=== PATIENT | female | born 1945 | race Caucasian/White ===

== ENCOUNTER 2016-09-07 21:15 | Inpatient (IN) | payer OTHER, BC ==
[~2016-09-07] VITALS: Ht 157.5 cm; Wt 86.2 kg
[~2016-09-07 21:15] MED LIST: CEFP100T PO; METO25TA4 PO; MULT-91 PO; PANT40TA5 PO; PRAV20TA2 PO; WARF2TAB7 PO; WARF5TAB7 PO
--- NOTE | 2016-09-07 22:52 | PHYS DOC ---
Past Medical History Past Medical History: A-Fib, Heart Disease, NH, Stroke Past Surgical History: Appendectomy, Cholecystectomy, Hysterectomy, Tonsillectomy Alcohol Use: None Drug Use: None Adult General Chief Complaint Chief Complaint: NEAR SYNCOPE HPI HPI Patient is a 71 year old female who presents with complaint of a near syncopal episode that took place prior to arrival. Patient states that she was dining at a restaurant with family. The patient suddenly started having lightheadedness and tunnel vision. Patient states that she started to feel like she is going to pass out. The patient was caught by family who prevent the patient from falling. Patient denies any full loss of consciousness. Patient states that the episode lasted for several minutes. Staff at the restaurant called the EMS who brought the patient to the emergency department. Patient states that she has history of A. fib, stroke, and NH. Patient is currently on Coumadin therapy. Patient states that she is having residual substernal chest pressure since the episode and also states that she feels very weak. Patient rates her chest discomfort currently as 3 out of 10. Review of Systems Review of Systems Constitutional: Generalized weakness, Denies fever or chills [] Eyes: Denies change in visual acuity, redness, or eye pain [] HENT: Denies nasal congestion or sore throat [] Respiratory: Denies cough or shortness of breath [] Cardiovascular: Chest pain, near-syncope [] GI: Nausea, denies abdominal pain, vomiting, bloody stools or diarrhea [] : Denies dysuria or hematuria [] Musculoskeletal: Denies back pain or joint pain [] Integument: Denies rash or skin lesions [] Neurologic: Denies headache, focal weakness or sensory changes [] Current Medications Current Medications Current Medications Medications (Trade) Dose Ordered Sig/Jovanni Start Time Stop Time Status Last Admin Dose Admin Ceftriaxone Sodium 50 ml @ 100 mls/hr 1X ONCE 09/08/16 02:00 09/08/16 02:29 DC 09/08/16 02:15 100 MLS/HR Sodium Chloride (Iv Sodium Chloride 0.9% 500ml Bag) 500 ml @ 500 mls/hr 1X ONCE 09/08/16 01:59 09/08/16 02:58 DC 09/08/16 01:30 500 MLS/HR Allergies Allergies Allergies Coded Allergies Type Severity Reaction Last Updated Verified Penicillins Allergy Intermediate 07/02/16 Yes alprazolam Allergy Intermediate 07/02/16 Yes codeine Allergy Intermediate 07/02/16 Yes hydrocodone Allergy Intermediate 07/02/16 Yes meperidine Allergy Intermediate 07/02/16 Yes morphine Allergy Intermediate 07/02/16 Yes shellfish derived Allergy Intermediate 07/02/16 Yes aspirin Adverse Reaction Intermediate 07/02/16 Yes Physical Exam Physical Exam Constitutional: Alert, afebrile, appears in mild discomfort. [] HENT: Normocephalic, atraumatic, bilateral external ears normal, oropharynx moist, no oral exudates, nose normal. [] Eyes: PERRLA, EOMI, conjunctiva normal, no discharge. [] Neck: Normal range of motion, no tenderness, supple, no stridor. [] Cardiovascular:Heart rate regular rhythm, no murmur [] Lungs & Thorax: Bilateral breath sounds clear to auscultation [] Abdomen: Bowel sounds normal, soft, no tenderness, no masses, no pulsatile masses. [] Skin: Warm, dry, no erythema, no rash. [] Back: No tenderness, no CVA tenderness. [] Extremities: No tenderness, no cyanosis, no clubbing, ROM intact, no edema. [] Neurologic: Alert and oriented X 3, normal motor function, normal sensory function, no focal deficits noted. [] Current Patient Data Vital Signs Vital Signs Date Time Temp Pulse Resp B/P Pulse Ox O2 Delivery O2 Flow Rate FiO2 09/08/16 01:58 76 17 161/60 92 Room Air 09/07/16 21:41 97.5 97.5 Lab Values Laboratory Tests Test 09/08/16 00:37 09/08/16 00:45 White Blood Count 10.2x10^3/uL (4.0-11.0) Red Blood Count 4.94x10^6/uL (3.50-5.40) Hemoglobin 14.4g/dL (12.0-15.5) Hematocrit 43.3% (36.0-47.0) Mean Corpuscular Volume 88fL (79-100) Mean Corpuscular Hemoglobin 29pg (25-35) Mean Corpuscular Hemoglobin Concent 33g/dL (31-37) Red Cell Distribution Width 13.7% (11.5-14.5) Platelet Count 186x10^3/uL (140-400) Neutrophils (%) (Auto) 82% (31-73) H Lymphocytes (%) (Auto) 13% (24-48) L Monocytes (%) (Auto) 4% (0-9) Eosinophils (%) (Auto) 1% (0-3) Basophils (%) (Auto) 1% (0-3) Neutrophils # (Auto) 8.4x10^3uL (1.8-7.7) H Lymphocytes # (Auto) 1.3x10^3/uL (1.0-4.8) Monocytes # (Auto) 0.4x10^3/uL (0.0-1.1) Eosinophils # (Auto) 0.1x10^3/uL (0.0-0.7) Basophils # (Auto) 0.1x10^3/uL (0.0-0.2) Prothrombin Time 21.4SEC (11.7-14.0) H Prothrombin Time INR 2.0 (0.8-1.1) H PTT 37SEC (24-38) Sodium Level 148mmol/L (136-145) H Potassium Level 4.5mmol/L (3.5-5.1) Chloride Level 110mmol/L (98-107) H Carbon Dioxide Level 31mmol/L (21-32) Anion Gap 7 (6-14) Blood Urea Nitrogen 23mg/dL (7-20) H Creatinine 1.0mg/dL (0.6-1.0) Estimated GFR (Cockcroft-Gault) 54.5 BUN/Creatinine Ratio 23 (6-20) H Glucose Level 143mg/dL (70-99) H Calcium Level 8.9mg/dL (8.5-10.1) Magnesium Level 1.9mg/dL (1.8-2.4) Total Bilirubin 0.9mg/dL (0.2-1.0) Aspartate Amino Transferase (AST) 16U/L (15-37) Alanine Aminotransferase (ALT) 24U/L (14-59) Alkaline Phosphatase 74U/L (46-116) Creatine Kinase 32U/L (26-192) Creatine Kinase MB (Mass) < 0.5ng/mL (0.0-3.6) Creatine Kinase MB Relative Index 1.6% (0-4) Troponin I Quantitative < 0.017ng/mL (0.000-0.055) Total Protein 6.0g/dL (6.4-8.2) L Albumin 3.3g/dL (3.4-5.0) L Albumin/Globulin Ratio 1.2 (1.0-1.7) Urine Collection Type Unknown Urine Color Yellow Urine Clarity Clear Urine pH 5.5 Urine Specific [place] 1.020 Urine Protein Negativemg/dL (NEG-TRACE) Urine Glucose (UA) Negativemg/dL (NEG) Urine Ketones (Stick) Negativemg/dL (NEG) Urine Blood Negative (NEG) Urine Nitrite Negative (NEG) Urine Bilirubin Negative (NEG) Urine Urobilinogen Dipstick 0.2mg/dL (0.2 mg/dL) Urine Leukocyte Esterase Large (NEG) Urine RBC Occ/HPF (0-2) Urine WBC Tntc/HPF (0-4) Urine Squamous Epithelial Cells Mod/LPF Urine Bacteria Moderate/HPF (0-FEW) Urine Hyaline Casts Moderate/HPF Urine Mucus Mod/LPF Laboratory Tests 09/08/16 00:37 Laboratory Tests 09/08/16 00:37 EKG EKG Interpreted by me: Heart rate 75, sinus rhythm, leftward axis, no acute ST/T- wave abnormalities present [] Radiology/Procedures Radiology/Procedures One view AP chest x-ray interpreted by me: No infiltrate, no effusion, normal cardiac silhouette [] Course & Med Decision Making Course & Med Decision Making Pertinent Labs and Imaging studies reviewed. (See chart for details) The patient was started on IV fluids in the emergency department. Patient was not given aspirin for chest pain due to aspirin allergy. After fluid treatment, the patient continued to complain of intermittent episodes of substernal chest pressure. Patient was found to have urinary tract infection and started on IV Rocephin. Given the patient's syncope, history of atrial fibrillation, and presence of continued chest pain, I feel it is appropriate that this patient be admitted for further monitoring. I spoke with Dr. Lemus who accepted care patient in hospital. He asked that repeat troponins be ordered but stated that he would see the patient before consulting cardiology. The patient will be continued on IV Rocephin for treatment of urinary tract infection. Dragon Disclaimer Dragon Disclaimer This electronic medical record was generated, in whole or in part, using a voice recognition dictation system. Departure Departure Impression: Primary Impression: Syncope Additional Impressions: Chest pain Urinary tract infection History of atrial fibrillation Warfarin anticoagulation Disposition: 09 ADMITTED INPATIENT Admitting Physician: Vivian Lemus Condition: GUARDED Referrals: VIVIAN LEMUS MD (PCP) Problem Qualifiers Primary Impression: Syncope Syncope type: unspecified Qualified Code: R55 - Syncope and collapse Additional Impressions: Chest pain Chest pain type: unspecified Qualified Code: R07.9 - Chest pain, unspecified Urinary tract infection Urinary tract infection type: site unspecified Hematuria presence: without hematuria Qualified Code: N39.0 - Urinary tract infection, site not specified VINNIE HENDRICKSON MD Sep 07, 2016 22:52
[2016-09-07] MEDS ORDERED: IV NORMAL SALINE 500ML BAG 500 ML IV SCH (23:45)
[2016-09-08] VITALS (8 sets, daily range): BP systolic 121–188; BP diastolic 60–92
[2016-09-08 00:45] LABS: BASO # 0.1 x10^3/uL (0.0-0.2); BASO % 1 % (0-3); EOS % 1 % (0-3); HEMATOCRIT 43.3 % (36.0-47.0); HEMOGLOBIN 14.4 g/dL (12.0-15.5); LYMPH # 1.3 x10^3/uL (1.0-4.8); LYMPH % 13 % (24-48); MEAN CORPUSCULAR HEMOGLOBIN 29 pg (25-35); MEAN CORPUSCULAR HGB CONC 33 g/dL (31-37); MEAN CORPUSCULAR VOLUME 88 fL (79-100); MONO % 4 % (0-9); NEUT % 82 % (31-73); PLATELET COUNT 186 x10^3/uL (140-400); RED BLOOD COUNT 4.94 x10^6/uL (3.50-5.40); RED CELL DISTRIBUTION WIDTH 13.7 % (11.5-14.5); WHITE BLOOD COUNT 10.2 x10^3/uL (4.0-11.0)
[2016-09-08 00:55] LABS: PROTHROMBIN TIME PATIENT 21.4 SEC (11.7-14.0)
[2016-09-08 00:58] LABS: CALCIUM 8.9 mg/dL (8.5-10.1); GFR 54.5; POTASSIUM 4.5 mmol/L (3.5-5.1)
[2016-09-08 01:03] LABS: ALBUMIN 3.3 g/dL (3.4-5.0); ALBUMIN/GLOBULIN RATIO 1.2 (1.0-1.7); MAGNESIUM 1.9 mg/dL (1.8-2.4); TOTAL BILIRUBIN 0.9 mg/dL (0.2-1.0)
[2016-09-08 01:07] LABS: BILIRUBIN,URINE NEGATIVE (NEG); GLUCOSE,URINE NEGATIVE (NEG); NITRITE,URINE NEGATIVE (NEG); PH,URINE 5.5; PROTEIN,URINE NEGATIVE (NEG-TRACE); UROBILINOGEN,URINE 0.2 mg/dL (0.2 mg/dL)
[2016-09-08 01:11] LABS: CKMB INDEX 1.6 % (0-4); CKMB MASS < 0.5 ng/mL (0.0-3.6); CREATINE KINASE 32 U/L (26-192)
[2016-09-08 01:19] LABS: BACTERIA,URINE MODERATE /HPF (0-FEW); RBC,URINE OCC /HPF (0-2); WBC,URINE TNTC /HPF (0-4)
[2016-09-08 01:20] LABS: SQUAMOUS EPITHELIAL CELL,UR MOD /LPF
[2016-09-08] MEDS ORDERED: IV NORMAL SALINE 500ML BAG 500 ML IV ONE (01:59)
[2016-09-08] MEDS ORDERED: CEFTRIAXONE 1GM IVPB FOR OMNI 50 ML IV ONE (02:00)
[2016-09-08] MEDS ORDERED: IV NORMAL SALINE 1000ML BAG 1,000 ML IV SCH (02:34)
[2016-09-08] MEDS ORDERED: ONDANSETRON PF 4 MG/2 ML VIAL. IV PRN (02:45)
[2016-09-08] MEDS ORDERED: ACETAMINOPHEN 325 MG TABLET. PO PRN (02:45)
[2016-09-08] MEDS: FENTANYL PF 100 MCG/2 ML VIAL. IV PRN ×5 (04:33→20:11)
--- NOTE | 2016-09-08 05:43 | ACF ---
Admit Criteria Forms Admit Criteria Forms Admit Criteria Forms SYNCOPE Clinical Indications for Admission to Inpatient Care ( Place 'X' for any and all applicable criteria): Admission is indicated for syncope and ANY ONE of the following (1)(2)(3)(4)(5) (6)(7) : [X]I. Inpatient admission required rather than observation care (Also use Syncope: Observation Care Criteria as appropriate) because of ANY ONE of the following: [ ]a) Hemodynamic instability that is severe or persistent [ ]b) Cardiac arrhythmias of immediate concern identified or strongly suspected (eg, needs electrophysiologic study) [ ]c) Acute coronary syndrome identified (Also use Myocardial Infarction or Angina Criteria form ) [ ]d) Structural cardiac disorder (eg, aortic stenosis) suspected as cause that requires immediate correction [ ]e) Respiratory symptoms (eg, dyspnea, tachypnea) that are severe or persistent [ ]f) Neurologic signs or symptoms that are severe or persistent ( eg, stroke, seizures, altered mental status) [ ]g) Severe electrolyte abnormalities requiring inpatient care [ ]h) Supplemental oxygen or respiratory treatment for over 24 hrs that are performable only in acute inpatient setting [ ]i) IV fluid to replace significant ongoing (eg, for over 24 hrs ) losses (>3 L/m2 per day) [ ]j) Continuous intravenous infusion of anticoagulation, platelet inhibitor, vasoactive, or antiarrhythmic medication(15)(16) [ ]k) Pulmonary artery catheter monitoring [ ]l) Temporary pacemaker placement(17) [ ]m) Emergent cardioversion(18) [X]n) Other conditions, treatment or monitoring requiring inpatient admission [ ]II. Suspicion of imminently dangerous cause (eg, rare causes like pericardial tamponade, pulmonary embolism) [ ]III. Syncope causing severe injury requiring hospitalization Extended stay beyond goal length of stay may be needed for(28) [ ]a) Dangerous arrhythmia(15)(23)(27)(29) [ ]b) Myocardial ischemia [ ]c) Seizure disorder [ ]d) Syncope-related injuries The original [facility] content created by [facility] [employer] has been revised. The portions of the content which have been revised are identified through the use of italic text or in bold, and [facility] [employer] has neither reviewed nor approved the modified material. All other unmodified content is copyright [facility] [employer]. Please see references footnoted in the original [facility] edition 2016 PRUDENCE DENNIS Sep 08, 2016 05:43
--- NOTE | 2016-09-08 06:46 | EKG ---
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
--- NOTE | 2016-09-08 07:46 | RAD ---
Portable chest, 09/07/2016: History: Chest pain Comparison is made to a study from 12/09/2005. The patient is rotated to the left. The heart size and pulmonary vascularity are normal. No pulmonary infiltrates are seen. There is no evidence of pleural fluid. IMPRESSION: No acute cardiopulmonary abnormality is detected.
[2016-09-08] MEDS ORDERED: ACETAMINOPHEN 500 MG TABLET PO PRN (14:45)
[2016-09-08] MEDS ORDERED: DIAZEPAM 5 MG TABLET PO PRN (14:45)
--- NOTE | 2016-09-08 14:45 | PDOC ---
Provider Note Provider Note See admission H&P dictation #[id number] Impression: 1. Near syncopal episode: 2. Abnormal UA consistent with UTI: 3. History of atrial fibrillation: 4. Reported history of patent foramen ovale: 5. Abnormal glucose: 6. Anxiety: 7. Low back pain: VIVIAN LEMUS MD Sep 08, 2016 14:45
--- NOTE | 2016-09-08 15:12 | PDOC2 ---
CARDIAC CONSULT DATE OF CONSULT Date of Consult DATE: 09/08/16 TIME: 14:46 REASON FOR CONSULT Reason for Consult: afib, h/o pfo, syncope REFERRING PHYSICIAN Referring Physician: Mesfin SOURCE Source: Chart review, Patient HISTORY OF PRESENT ILLNESS HISTORY OF PRESENT ILLNESS This is a pleasant but very anxious 71 yo female admitted for complains of lightheadedness. Reports that she was in a crowded [lace with her family dining in a restaurant. She was done eating when finally started feeling weak, had tunnel vision, diaphoretic and lightheaded. There was no symptoms of palpitations, SOA, nor nausea. The duration of her symptoms was not clear and told me it lasted several minutes. She did have chest tightness and this was described as her rib cage squeezing together then got isolated under her left breast. There was no associated ROSE, visual or auditory disturbances, dysarthria , nor unilateral weakness. There has been no changes in her activity tolerance. She did overheard the EMS switch technician saying 90/60 on her blood pressure. Denies being claustrophobic but she is does have hx of PAFIB and possible PFO in the past. She has hx of CVA and currently on coumadin therapy. She is quite anxious and seems to recirculate her details of symptoms and past events but could not pinpoint the timeline of it. She verbalized that she had an AK in the past but based on her cardiac testing no notable CAD was noted. Denies any recent long distance travel, no prior VTE. No recent passing out, falls or any injury. She does have UTI and based on her this is recurrent explaining about bladder dysfunction which may need bladder suspension but she would consider any surgery that would make her stop taking her coumadin. Her oncology rep specialist is from [facility] Dr. Bosch. PAST MEDICAL HISTORY Cardiovascular: AFIB (paroxysmal), HTN, Hyperlipidemia, Other (hx of PFO; mild carotid artery disease) Pulmonary: Pneumonia CENTRAL NERVOUS SYSTEM: CVA (no residuals) GI: GERD Heme/Onc: No pertinent hx, Other (left retroperitoneal hematoma June 2016 anterior to the left psoas muscle with prior anticoagulation (possibly from lovenox shots)) Hepatobiliary: No pertinent hx Psych: Anxiety Musculoskeletal: Osteoarthritis Rheumatologic: No pertinent hx Infectious disease: No pertinent hx ENT: No pertinent hx Renal/: UTI (Ecoli rsitatn to levaquin) Endocrine: Hypothyroidism (?) Dermatology: No pertinent hx PAST SURGICAL HISTORY Past Surgical History: Appendectomy, Arthroscopy (RTC repair), Cholecystectomy , Hernia Repair ( with mesh x3 surgeries), Tonsillectomy, Hysterectomy (partial) , Other (hip and knee surgery; thyroid surgery) FAMILY HISTORY Family History noncontributory SOCIAL HISTORY Smoke: No ALCOHOL: none Drugs: None Lives: Alone CURRENT MEDICATIONS CURRENT MEDICATIONS Current Medications Medications (Trade) Dose Ordered Sig/Jovanni Route PRN Reason Start Time Stop Time Status Last Admin Dose Admin Ceftriaxone Sodium 50 ml @ 100 mls/hr 1X ONCE IV 09/08/16 02:00 09/08/16 02:29 DC 09/08/16 02:15 Sodium Chloride (Iv Sodium Chloride 0.9% 500ml Bag) 500 ml @ 500 mls/hr 1X ONCE IV 09/08/16 01:59 09/08/16 02:58 DC 09/08/16 01:30 Fentanyl Citrate 50 mcg 50 mcg PRN Q2HR PRN IV SEVERE PAIN 09/08/16 02:45 09/09/16 02:44 09/08/16 13:09 Sodium Chloride (Iv Sodium Chloride 0.9% 1000ml Bag) 1,000 ml @ 100 mls/hr Q10H IV 09/08/16 02:34 09/09/16 02:33 09/08/16 04:26 ALLERGIES ALLERGIES: Coded Allergies: Penicillins (Verified Allergy, Intermediate, 07/02/16) alprazolam (Verified Allergy, Intermediate, 07/02/16) codeine (Verified Allergy, Intermediate, 07/02/16) hydrocodone (Verified Allergy, Intermediate, 07/02/16) meperidine (Verified Allergy, Intermediate, 07/02/16) morphine (Verified Allergy, Intermediate, 07/02/16) shellfish derived (Verified Allergy, Intermediate, 07/02/16) aspirin (Verified Adverse Reaction, Intermediate, 07/02/16) ROS Review of System 14 point ROS evaluated with pertinent positives noted per HPI PHYSICAL EXAM General: Alert, Oriented X3, Cooperative, No acute distress HEENT: Atraumatic, Mucous membr. moist/pink Lungs: Clear to auscultation, Normal air movement Heart: Regular rate, Normal S1, Normal S2, No murmurs Abdomen: Soft, No tenderness, Other (obese) Skin: No breakdown, No significant lesion Neuro: Normal speech, Sensation intact Psych/Mental Status: Other (anxious) MUSCULOSKELETAL: Osteoarthritic changes both hands VITALS VITALS Vital Signs Date Time Temp Pulse Resp B/P Pulse Ox O2 Delivery O2 Flow Rate FiO2 09/08/16 13:09 18 97 Room Air 09/08/16 11:00 97.9 73 153/64 97.9 LABS Lab: Laboratory Tests Test 09/08/16 00:37 09/08/16 00:45 09/08/16 08:50 White Blood Count 10.2x10^3/uL (4.0-11.0) Red Blood Count 4.94x10^6/uL (3.50-5.40) Hemoglobin 14.4g/dL (12.0-15.5) Hematocrit 43.3% (36.0-47.0) Mean Corpuscular Volume 88fL (79-100) Mean Corpuscular Hemoglobin 29pg (25-35) Mean Corpuscular Hemoglobin Concent 33g/dL (31-37) Red Cell Distribution Width 13.7% (11.5-14.5) Platelet Count 186x10^3/uL (140-400) Neutrophils (%) (Auto) 82% (31-73) Lymphocytes (%) (Auto) 13% (24-48) Monocytes (%) (Auto) 4% (0-9) Eosinophils (%) (Auto) 1% (0-3) Basophils (%) (Auto) 1% (0-3) Neutrophils # (Auto) 8.4x10^3uL (1.8-7.7) Lymphocytes # (Auto) 1.3x10^3/uL (1.0-4.8) Monocytes # (Auto) 0.4x10^3/uL (0.0-1.1) Eosinophils # (Auto) 0.1x10^3/uL (0.0-0.7) Basophils # (Auto) 0.1x10^3/uL (0.0-0.2) Prothrombin Time 21.4SEC (11.7-14.0) Prothromb Time International Ratio 2.0 (0.8-1.1) Activated Partial Thromboplast Time 37SEC (24-38) Sodium Level 148mmol/L (136-145) Potassium Level 4.5mmol/L (3.5-5.1) Chloride Level 110mmol/L (98-107) Carbon Dioxide Level 31mmol/L (21-32) Anion Gap 7 (6-14) Blood Urea Nitrogen 23mg/dL (7-20) Creatinine 1.0mg/dL (0.6-1.0) Estimated GFR (Cockcroft-Gault) 54.5 BUN/Creatinine Ratio 23 (6-20) Glucose Level 143mg/dL (70-99) Calcium Level 8.9mg/dL (8.5-10.1) Magnesium Level 1.9mg/dL (1.8-2.4) Total Bilirubin 0.9mg/dL (0.2-1.0) Aspartate Amino Transf (AST/SGOT) 16U/L (15-37) Alanine Aminotransferase (ALT/SGPT) 24U/L (14-59) Alkaline Phosphatase 74U/L (46-116) Creatine Kinase 32U/L (26-192) Creatine Kinase MB (Mass) < 0.5ng/mL (0.0-3.6) Creatine Kinase MB Relative Index 1.6% (0-4) Troponin I Quantitative < 0.017ng/mL (0.000-0.055) < 0.017ng/mL (0.000-0.055) Total Protein 6.0g/dL (6.4-8.2) Albumin 3.3g/dL (3.4-5.0) Albumin/Globulin Ratio 1.2 (1.0-1.7) Urine Collection Type Unknown Urine Color Yellow Urine Clarity Clear Urine pH 5.5 Urine Specific [place] 1.020 Urine Protein Negativemg/dL (NEG-TRACE) Urine Glucose (UA) Negativemg/dL (NEG) Urine Ketones (Stick) Negativemg/dL (NEG) Urine Blood Negative (NEG) Urine Nitrite Negative (NEG) Urine Bilirubin Negative (NEG) Urine Urobilinogen Dipstick 0.2mg/dL (0.2 mg/dL) Urine Leukocyte Esterase Large (NEG) Urine RBC Occ/HPF (0-2) Urine WBC Tntc/HPF (0-4) Urine Squamous Epithelial Cells Mod/LPF Urine Bacteria Moderate/HPF (0-FEW) Urine Hyaline Casts Moderate/HPF Urine Mucus Mod/LPF ECHOCARDIOGRAM ECHOCARDIOGRAM <Conclusion> The left ventricle is normal size. The left ventricular systolic function is normal and the ejection fraction is within normal range. The Ejection Fraction is 55-60%. There is mild concentric left ventricular hypertrophy. There is no significant aortic valvular stenosis. Doppler and Color Flow revealed no significant aortic regurgitation. Doppler and Color Flow revealed trace mitral valve regurgitation. Doppler and Color Flow revealed trace tricuspid regurgitation. The PA pressure was estimated at 33 mmHg. The left atrium size is normal. The right atrium size is normal. The interatrial septum is intact with no evidence for an atrial septal defect or patent foramen ovale as noted on 2-D or Doppler imaging. DATE: 07/01/16 1211 STRESS TEST STRESS TEST Stress MPI in early 2015 that was unremarkable. Calcium score of 0 within the last 5 years. HEART CATH HEART CATH Normal [facility] 2007 ASSESSMENT/PLAN ASSESSMENT/PLAN 1. Atypical Chest pain: Troponin series normal, EKG SR with no acute changes. Suspect GI. Recent MPI early 2015 unremarkable per chart review 2. Presyncope: suspect vasovagal, likely deglutition induced with underlying anxiety/dehydration 3. Prerenal azotemia 4. PAFIB: currently on SR, no ectopies 5. CVA with hx of small PFO: no residual deficits with past CVA. Documented PFO/ ASD on 04/30/2011. On 06/2016, Recent TTE noted without any ASD nor PFO. Spontaneous closure is likely 6. Significant Anxiety 7. Recurrent UTI 8. Hx of retroperitoneal bleed: anterior to psoas muscle, likely from lovenox treatment 9. Known GERD/hiatal hernia/gastritis 10. HTN: controlled 11. 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 Continue with coumadin therapy and metoprolol 2. IVF maintenance 3. Will check for orthostasis 4. TSH, lipid panel. 5. Per chart review she did have an event monitor placed on 10/2015 by her oncology rep specialist due to dizziness and did not show any correlation to arrhythmias 6. No recent CVA, if PFO/ASD is still a concern, NICHOLAS would be a definitive testing. Problems: EDNA PAZ APRN Sep 08, 2016 15:12
[2016-09-08] MEDS: IV 1/2 NORMAL SALINE 1,000 ML IV SCH (16:46)
[2016-09-08] MEDS: WARFARIN 2 MG TABLET. PO SCH (16:47)
[2016-09-08] MEDS: WARFARIN 5 MG TABLET. PO SCH (16:47)
[2016-09-08] MEDS: ATORVASTATIN CALCIUM 10 MG TABLET. PO SCH (20:08)
[2016-09-08] MEDS: METOPROLOL TART IMMED RELEASE 25 MG TABLET PO SCH (20:09)
[2016-09-08] MEDS: CEFTRIAXONE SODIUM 1 GM in IV NORMAL SALINE 50ML 50 ML IV SCH (22:49)
[2016-09-09] MEDS: FENTANYL PF 100 MCG/2 ML VIAL. IV PRN (00:28)
[2016-09-09 03:57] VITALS: BP 152/70
[2016-09-09] MEDS: TRAMADOL 50 MG TABLET. PO PRN ×3 (04:06→21:40)
[2016-09-09 04:10] LABS: BASO % 1 % (0-3); EOS % 2 % (0-3); HEMATOCRIT 41.5 % (36.0-47.0); HEMOGLOBIN 13.9 g/dL (12.0-15.5); LYMPH # 1.7 x10^3/uL (1.0-4.8); LYMPH % 26 % (24-48); MEAN CORPUSCULAR HEMOGLOBIN 29 pg (25-35); MEAN CORPUSCULAR HGB CONC 34 g/dL (31-37); MEAN CORPUSCULAR VOLUME 88 fL (79-100); MONO % 7 % (0-9); NEUT % 65 % (31-73); PLATELET COUNT 174 x10^3/uL (140-400); RED BLOOD COUNT 4.72 x10^6/uL (3.50-5.40); RED CELL DISTRIBUTION WIDTH 13.6 % (11.5-14.5); WHITE BLOOD COUNT 6.5 x10^3/uL (4.0-11.0)
[2016-09-09 04:17] LABS: INR 2.1 (0.8-1.1)
[2016-09-09 04:28] LABS: CALCIUM 8.4 mg/dL (8.5-10.1); CREATININE 1.2 mg/dL (0.6-1.0); GFR 44.2; POTASSIUM 4.3 mmol/L (3.5-5.1)
[2016-09-09 04:35] LABS: CHOLESTEROL/HDL RATIO 4.5
[2016-09-09] MEDS: IV 1/2 NORMAL SALINE 1,000 ML IV SCH (05:35)
[2016-09-09 07:19] VITALS: BP 150/97
--- NOTE | 2016-09-09 08:37 | PDOC ---
SUBJECTIVE Subjective Feeling somewhat better. She tolerated the tramadol without any difficulty so far and her back pain feels better. She was able to get a little bit asleep. She is still somewhat anxious. Denies any chest pain or shortness of breath. No near syncopal episodes. Tolerating her diet okay. OBJECTIVE Vital Signs Vital Signs Date Time Temp Pulse Resp B/P Pulse Ox O2 Delivery O2 Flow Rate FiO2 09/09/16 07:19 66 22 150/97 93 Room Air 09/09/16 05:06 93 Room Air 09/09/16 04:06 18 09/09/16 03:57 97.9 74 16 152/70 93 Room Air 97.9 09/09/16 00:58 95 Room Air 09/09/16 00:28 18 95 Room Air 09/08/16 23:53 97.9 68 16 142/74 95 Room Air 97.9 09/08/16 20:41 18 09/08/16 20:11 18 97 Room Air 09/08/16 20:09 68 148/68 09/08/16 20:00 Room Air 09/08/16 19:56 98.1 68 20 148/68 97 Room Air 98.1 09/08/16 16:47 19 97 Room Air 09/08/16 15:02 188/92 09/08/16 15:01 182/88 09/08/16 15:00 97.8 70 18 174/70 96 Room Air 97.8 09/08/16 13:09 18 97 Room Air 09/08/16 11:00 97.9 73 18 153/64 97 Room Air 97.9 I & O Intake and Output 09/09/16 07:00 Intake Total 1660 ml Balance 1660 ml Intake Oral 1660 ml # Voids 4 PHYSICAL EXAM Physical Exam General: No acute distress. Laying in bed. Mental status: Alert and oriented. Less anxious. Chest: Air movement: good. Auscultation: clear throughout Cardiovascular: Rate: normal. Rhythm: regular. Murmur: none. Abdomen: Bowel sounds: Occasional. Soft. Nondistended. Tenderness: nontender to palpation. No guarding. No rebound. Extremities: No lower extremity edema. ASSESSMENT/PLAN Assessment/Plan 1. Near syncopal episode: Probably a combination of dehydration and urinary tract infection. Could be arrhythmia with a history of atrial fibrillation but there's been no recurrent episodes. 2. Abnormal UA consistent with UTI: Continue empiric antibiotics. Await urine culture results. 3. History of atrial fibrillation: Stable on current medications. 4. Reported history of patent foramen ovale: Per cardiology. 5. Abnormal glucose: Continue to monitor as needed. 6. Anxiety: Add low-dose of Valium twice a day when necessary which she has used in the past. 7. Low back pain: Most likely degenerative changes but also possibly due to a UTI. She is tolerating tramadol so far. Continue with since she does have a variety of allergies and intolerances. 8. Disposition: She will hopefully be able to be discharged home tomorrow. Since she has multiple antibiotic allergies/intolerances and recurrent urinary tract infections, high would like to have her urine culture results back before she goes home so we can make sure she is on the correct antibiotic. Problems: COMMENT Lab Laboratory Tests Test 09/08/16 08:50 09/08/16 15:00 09/09/16 03:45 Troponin I Quantitative < 0.017ng/mL (0.000-0.055) < 0.017ng/mL (0.000-0.055) Thyroid Stimulating Hormone (TSH) 2.346uIU/mL (0.358-3.74) White Blood Count 6.5x10^3/uL (4.0-11.0) Red Blood Count 4.72x10^6/uL (3.50-5.40) Hemoglobin 13.9g/dL (12.0-15.5) Hematocrit 41.5% (36.0-47.0) Mean Corpuscular Volume 88fL (79-100) Mean Corpuscular Hemoglobin 29pg (25-35) Mean Corpuscular Hemoglobin Concent 34g/dL (31-37) Red Cell Distribution Width 13.6% (11.5-14.5) Platelet Count 174x10^3/uL (140-400) Neutrophils (%) (Auto) 65% (31-73) Lymphocytes (%) (Auto) 26% (24-48) Monocytes (%) (Auto) 7% (0-9) Eosinophils (%) (Auto) 2% (0-3) Basophils (%) (Auto) 1% (0-3) Neutrophils # (Auto) 4.2x10^3uL (1.8-7.7) Lymphocytes # (Auto) 1.7x10^3/uL (1.0-4.8) Monocytes # (Auto) 0.4x10^3/uL (0.0-1.1) Eosinophils # (Auto) 0.2x10^3/uL (0.0-0.7) Basophils # (Auto) 0.0x10^3/uL (0.0-0.2) Prothrombin Time 22.0SEC (11.7-14.0) Prothromb Time International Ratio 2.1 (0.8-1.1) Sodium Level 145mmol/L (136-145) Potassium Level 4.3mmol/L (3.5-5.1) Chloride Level 110mmol/L (98-107) Carbon Dioxide Level 27mmol/L (21-32) Anion Gap 8 (6-14) Blood Urea Nitrogen 21mg/dL (7-20) Creatinine 1.2mg/dL (0.6-1.0) Estimated GFR (Cockcroft-Gault) 44.2 Glucose Level 109mg/dL (70-99) Calcium Level 8.4mg/dL (8.5-10.1) Triglycerides Level 156mg/dL (0-150) Cholesterol Level 206mg/dL (0-200) LDL Cholesterol, Calculated 129mg/dL (0-100) VLDL Cholesterol, Calculated 31mg/dL (0-40) HDL Cholesterol 46mg/dL (40-60) Cholesterol/HDL Ratio 4.5 VIVIAN LEMUS MD Sep 09, 2016 08:37
[2016-09-09] MEDS ORDERED: DIAZEPAM 2 MG TABLET PO PRN (08:45)
[2016-09-09] MEDS: PANTOPRAZOLE 40 MG TABLET. PO SCH (09:41)
[2016-09-09] MEDS: METOPROLOL TART IMMED RELEASE 25 MG TABLET PO SCH ×2 (09:41→21:41)
--- NOTE | 2016-09-09 10:07 | PDOC ---
CARDIO Progress Notes Date and Time Date of Service 09/09/2016 Time of Evaluation 1005 Subjective Subjective: No Chest Pain, No shortness of breath, No Palpitations, No Dizziness Vitals Vitals Vital Signs Date Time Temp Pulse Resp B/P Pulse Ox O2 Delivery O2 Flow Rate FiO2 09/09/16 09:41 66 150/97 09/09/16 07:19 22 93 Room Air 09/09/16 03:57 97.9 97.9 Weight Weight [ ] Input and Output Intake and Output Intake and Output 09/09/16 07:00 Intake Total 1660 ml Balance 1660 ml Intake Oral 1660 ml # Voids 4 Laboratory Labs Laboratory Tests Test 09/08/16 15:00 09/09/16 03:45 Troponin I Quantitative < 0.017ng/mL (0.000-0.055) Thyroid Stimulating Hormone (TSH) 2.346uIU/mL (0.358-3.74) White Blood Count 6.5x10^3/uL (4.0-11.0) Red Blood Count 4.72x10^6/uL (3.50-5.40) Hemoglobin 13.9g/dL (12.0-15.5) Hematocrit 41.5% (36.0-47.0) Mean Corpuscular Volume 88fL (79-100) Mean Corpuscular Hemoglobin 29pg (25-35) Mean Corpuscular Hemoglobin Concent 34g/dL (31-37) Red Cell Distribution Width 13.6% (11.5-14.5) Platelet Count 174x10^3/uL (140-400) Neutrophils (%) (Auto) 65% (31-73) Lymphocytes (%) (Auto) 26% (24-48) Monocytes (%) (Auto) 7% (0-9) Eosinophils (%) (Auto) 2% (0-3) Basophils (%) (Auto) 1% (0-3) Neutrophils # (Auto) 4.2x10^3uL (1.8-7.7) Lymphocytes # (Auto) 1.7x10^3/uL (1.0-4.8) Monocytes # (Auto) 0.4x10^3/uL (0.0-1.1) Eosinophils # (Auto) 0.2x10^3/uL (0.0-0.7) Basophils # (Auto) 0.0x10^3/uL (0.0-0.2) Prothrombin Time 22.0SEC (11.7-14.0) Prothromb Time International Ratio 2.1 (0.8-1.1) Sodium Level 145mmol/L (136-145) Potassium Level 4.3mmol/L (3.5-5.1) Chloride Level 110mmol/L (98-107) Carbon Dioxide Level 27mmol/L (21-32) Anion Gap 8 (6-14) Blood Urea Nitrogen 21mg/dL (7-20) Creatinine 1.2mg/dL (0.6-1.0) Estimated GFR (Cockcroft-Gault) 44.2 Glucose Level 109mg/dL (70-99) Calcium Level 8.4mg/dL (8.5-10.1) Triglycerides Level 156mg/dL (0-150) Cholesterol Level 206mg/dL (0-200) LDL Cholesterol, Calculated 129mg/dL (0-100) VLDL Cholesterol, Calculated 31mg/dL (0-40) HDL Cholesterol 46mg/dL (40-60) Cholesterol/HDL Ratio 4.5 Physical Exam HEENT: Neck Supple W Full Motion Chest: Symmetric LUNGS: Clear to Auscultation Heart: S1S2, RRR Abdomen: Soft N/T Extremities: Negative Jenni's Sign (truncal obesity), No Edema Neurology: alert, oriented, follow commands Assessment Assessment 1. Atypical Chest pain no recurrence recent MPI without significant findings 2. Presyncope no dysrhythmias on tele TSH normal no significant valvular disease on recent echo no recurrence suspect vasovagal - recommend f/u with usual office employee and consider event monitor 3. PAFIB remains SR; no afib on tele Agreeable with discharge; f/u with usual office employee in the next 7 - 10 days; pt has been advised to inform that practice of her hospital stay here. RAFFI CHAVEZ APRN Sep 09, 2016 10:07
[2016-09-09 11:00] VITALS: BP 158/72
[2016-09-09 15:00] VITALS: BP 156/81
[2016-09-09] MEDS: WARFARIN 2 MG TABLET. PO SCH (17:16)
[2016-09-09] MEDS: WARFARIN 5 MG TABLET. PO SCH (17:17)
[2016-09-09 20:30] VITALS: BP 162/72
[2016-09-09] MEDS: ATORVASTATIN CALCIUM 10 MG TABLET. PO SCH (21:41)
[2016-09-09] MEDS: CEFTRIAXONE SODIUM 1 GM in IV NORMAL SALINE 50ML 50 ML IV SCH (21:42)
[2016-09-09 23:30] VITALS: BP 158/68
[2016-09-10] MEDS: TRAMADOL 50 MG TABLET. PO PRN ×2 (04:53→11:41)
[2016-09-10 04:58] VITALS: BP 145/58
[2016-09-10 07:00] VITALS: BP 146/67
--- NOTE | 2016-09-10 07:56 | PDOC ---
SUBJECTIVE Subjective Feeling better. Ambulated yesterday. Tolerating her diet without any problems. No diarrhea. Back pain is improved with tramadol. No palpitations. Anxiety is doing a little better. She does have some itching on her chest in the area of her telemetry pads. OBJECTIVE Vital Signs Vital Signs Date Time Temp Pulse Resp B/P Pulse Ox O2 Delivery O2 Flow Rate FiO2 09/10/16 05:53 18 94 Room Air 09/10/16 04:58 97.7 60 19 145/58 94 Room Air 97.7 09/10/16 04:53 18 97 Room Air 09/10/16 03:47 Room Air 09/09/16 23:30 97.5 66 18 158/68 97 Room Air 97.5 09/09/16 21:41 70 162/72 09/09/16 21:40 18 09/09/16 20:30 97.5 70 18 162/72 94 Room Air 97.5 09/09/16 20:00 Room Air 09/09/16 15:00 98.9 63 20 156/81 96 Room Air 98.9 09/09/16 13:57 Room Air 09/09/16 11:00 97.7 69 20 158/72 95 Room Air 97.7 09/09/16 09:41 66 150/97 09/09/16 08:15 Room Air I & O Intake and Output 09/10/16 07:00 Intake Total 1180 ml Balance 1180 ml Intake Oral 1180 ml # Voids 6 PHYSICAL EXAM Physical Exam General: No acute distress. Laying in bed. Mental status: Alert and oriented. Less anxious. Chest: Air movement: good. Auscultation: clear throughout. There are areas of erythema extending for a centimeter or 2 around the telemetry pads. Cardiovascular: Rate: normal. Rhythm: regular. Murmur: none. Abdomen: Bowel sounds: normal. Soft. Nondistended. Tenderness: nontender to palpation. No guarding. No rebound. Extremities: No lower extremity edema. ASSESSMENT/PLAN Assessment/Plan 1. Near syncopal episode: Probably a combination of dehydration and urinary tract infection. Could be arrhythmia with a history of atrial fibrillation but there's been no recurrent episodes. 2. Abnormal UA consistent with UTI: Continue empiric antibiotics. Hopefully urine culture results will be back today. Discussed with patient we'll change her to oral medication today with discharge. We may need to do empiric antibiotics if we don't have the culture results back today and she'll follow- up tomorrow. 3. History of atrial fibrillation: Stable on current medications. 4. Reported history of patent foramen ovale: Per cardiology. No workup needed at present. 5. Abnormal glucose: Continue to monitor as needed. 6. Anxiety: Continue low-dose of Valium twice a day when necessary which she has used in the past. 7. Low back pain: Much improved with tramadol. 8. Disposition: Plan for discharge later today when we hopefully have the results of the urine culture back. Otherwise transition to empiric oral antibiotic and we'll have her follow-up as an outpatient tomorrow to determine proper antibiotic choice. Problems: VIVIAN LEMUS MD Sep 10, 2016 07:56
[2016-09-10] MEDS: METOPROLOL TART IMMED RELEASE 25 MG TABLET PO SCH (09:18)
[2016-09-10] MEDS: PANTOPRAZOLE 40 MG TABLET. PO SCH (09:18)
[2016-09-10 11:00] VITALS: BP 133/55
--- NOTE | 2016-09-10 13:19 | DISCH ---
DISCHARGE INSTRUCTIONS Condition on Discharge Condition on Discharge: Stable Activity After Discharge Activity Instructions for Disc: Activity as tolerated Diet after Discharge Diet after Discharge: Cardiac Checks after Discharge Checks after discharge: Check blood press - daily Contacting the after DC Call your doctor for: If your condition worsens Follow-Up Follow up with: Dr. Lemus in 1-2 weeks Warfarin Follow-Up Warfarin Follow UP: check lab beginning of next week in Dr. Lemus' office VIVIAN LEMUS MD Sep 10, 2016 13:19
[2016-09-10] MEDS ORDERED: CEFP100T PO (13:26)
[2016-09-10] MEDS ORDERED: TRAM50TA PO (13:26)
[2016-09-10] MEDS ORDERED: DIAZ5TAB4 PO (13:26)
--- NOTE | 2016-09-16 09:20 | HP ---
ADMIT DATE: 09/08/2016 ATTENDING PHYSICIAN: Dr. Vivian Lemus. CHIEF COMPLAINT: Near syncope. HISTORY OF PRESENT ILLNESS: The patient is a 71-year-old female with history of atrial fibrillation who was at a restaurant with her family. She just gone through the ____ and after eating she began to see bright light and everything else in the room went dark. She broke out in a cold sweat and she started to feel like she was going to pass out. She was lightheaded. She did have family that caught her and prevented her from falling out of her chair. She did not sustain any injury. She states that she did not completely pass out. She was also having chest pressure in the mid chest, felt like ____ on and off, it was at a level of 3/10 at that time, she presented to the Emergency Room and it was still ongoing. She did feel like she was having some occasional missed beats. Due to the symptoms, EMS was called and she presented to the Emergency Room. PAST MEDICAL HISTORY: Significant for hypertension and paroxysmal atrial fibrillation, anxiety, hyperlipidemia, CVA, retroperitoneal bleed, status post procedure in 06/2016. She had the CVA after that time and did have some residual weakness that has now resolved. At that time, it was felt that she had patent foramen ovale . She has a history of recurrent urinary tract infections. She had an MPI in early 2015 that was unremarkable. PAST SURGICAL HISTORY: Tonsillectomy, appendectomy, cholecystectomy, hernia repair x 3 in the upper abdominal area, one with mesh, hip surgery, knee surgery, partial thyroidectomy, rotator cuff repair, partial hysterectomy. FAMILY HISTORY: Noncontributory. SOCIAL HISTORY: The patient lives at home by herself, but she does have family in the area. She is . She smoked for approximately 1 year, many years ago. She denies any regular alcohol use. She did not have any significant alcohol use at the time of her symptoms. ALLERGIES TO MEDICATIONS: MULTIPLE WITH SOME PROBABLY BEING INTOLERANCES WELL, WHICH INCLUDE DEMEROL, ASPIRIN, MORPHINE, CODEINE, XANAX, PENICILLIN, LORTAB, IVP DYE, MACROBID. MEDICATIONS: At time of admission include: 1. Lopressor 25 mg p.o. b.i.d. 2. Multivitamin 1 p.o. daily. 3. Protonix 40 mg p.o. daily. 4. Pravastatin 20 mg p.o. daily. 5. Coumadin 7 mg p.o. daily. REVIEW OF SYSTEMS: The patient denies any recent fevers. She has had difficulty with sleeping for the last 2-3 nights. She has had similar episodes when she has gone out to eat in the past and this is by her recollection of the time this has happened. She denies any other vision problems. No difficulty swallowing. She does have mild dry cough, no shortness of breath. She denies any other recent episodes of chest pain, although she has been having some chronic right back and upper abdomen and lower chest pain for several months. It is thought to be mostly musculoskeletal. She has had a GI workup that was essentially unremarkable. She denies any recent heartburn or reflux symptoms. She has had cardiac evaluation as noted above. She denies any constipation or diarrhea. She has urinary frequency, although this is somewhat chronic in nature. She denies any recent dysuria. She denies any significant lower extremity swelling. She denies any focal paresthesias or weakness. She is somewhat anxious, but not depressed. She is actually having a good time at the alliance party. PHYSICAL EXAMINATION: VITAL SIGNS: At the time of admission, temperature 97.5, pulse 71, respiratory rate 20, blood pressure 138/56, O2 sat 98% on room air. GENERAL: The patient is well developed and nourished female. She is alert and oriented x 3. She is in no acute distress at present. HEENT: The pupils are equal and round. The extraocular motions are intact. Sclerae are anicteric. Oropharynx is moist. NECK: Without JVD or bruit. There is no thyromegaly. CHEST: Clear to auscultation bilaterally with fair air movement throughout. There is some tenderness to palpation in the right posterior chest wall without any rash. CARDIOVASCULAR: The heart has a regular rate and rhythm without murmur. ABDOMEN: Positive bowel sounds, soft, nondistended. There is some minimal tenderness in the epigastric and right upper quadrant area. There is no guarding or rebound. EXTREMITIES: There is a trace of edema in the bilateral lower extremities. NEUROLOGIC: Grossly intact and nonfocal. She moves the extremities symmetrically. Sensation to light touch appears to be intact. PSYCHIATRIC: She does appear anxious that is at her baseline. LABORATORY DATA: EKG shows sinus rhythm with leftward axis and a rate of 75. Chest x-ray shows no acute cardiopulmonary abnormality. Labs at the time of admission, WBC 10.2, hemoglobin 14.4, hematocrit 43.3, platelets 186. INR 2.0. UA shows specific gravity 1.020, large leukocyte esterase, too numerous to count white blood cells, occasional rbc's, moderate epithelial cells, moderate bacteria, moderate hyaline casts, moderate mucus. Sodium 148, potassium 4.5, chloride 110, CO2 31, BUN 23, creatinine 1.0. Glucose 143, LFTs are within normal limits. Troponin less than 0.017. Albumin 3.3. IMPRESSION: 1. Near syncopal episode. 2. Abnormal urinalysis consistent with urinary tract infection which could be the cause of the above. 3. History of atrial fibrillation. 4. Reported history of patent foramen ovale. 5. Abnormal glucose. 6. Anxiety. 7. Low back pain. PLAN: The patient is admitted. We will start her on empiric antibiotics for possible urinary tract infection, which could be causing her symptoms. She does appear to be mildly dehydrated, so will also receive IV fluids. We will consult Cardiology due to her history of atrial fibrillation and near syncopal episode, although she has had a fairly good cardiac workup in the past. Consider getting an echocardiogram. We will try and use tramadol while she is in the hospital for her back pain as she has been very reluctant to use anything else other than Tylenol, which is not effective. She has significant anxiety regarding trying the medications and this way she can be monitored while we do that to see if it works. We will also consider restarting her low dose Valium, which she has used in the past for her anxiety, which could be contributing to her symptoms as the syncopal episode could have been an anxiety attack. VIVIAN LEMUS MD DR: DONAVAN/nell JOB#: [id number] / [id number]
== END 2016-09-10 14:15 | disposition home or self-care (01) | DRG 690 ==
LOC: ER 21:15 → 6 SOUTH 09-08 02:25
PROVIDERS: ADMIT Family Medicine; ATTEND Family Medicine
DX: N39.0 Urinary tract infection, site not specified (principal); R55 Syncope and collapse; E03.9 Hypothyroidism, unspecified; E78.5 Hyperlipidemia, unspecified; E86.0 Dehydration; F41.9 Anxiety disorder, unspecified; I10 Essential (primary) hypertension; M19.90 Unspecified osteoarthritis, unspecified site; M54.5 Low back pain; I48.0 Paroxysmal atrial fibrillation; Z60.2 Problems related to living alone; R07.89 Other chest pain; K21.9 Gastro-esophageal reflux disease without esophagitis; Z79.01 Long term (current) use of anticoagulants; Z86.73 Personal history of transient ischemic attack (TIA), and cerebral infarction without residual deficits; Z90.49 Acquired absence of other specified parts of digestive tract; Z87.01 Personal history of pneumonia (recurrent); I25.2 Old myocardial infarction; Z88.8 Allergy status to other drugs, medicaments and biological substances; Z88.6 Allergy status to analgesic agent; Z88.5 Allergy status to narcotic agent; Z88.0 Allergy status to penicillin; Z91.013 Allergy to seafood; Z90.710 Acquired absence of both cervix and uterus; E80.4 Gilbert syndrome; K44.9 Diaphragmatic hernia without obstruction or gangrene; K29.70 Gastritis, unspecified, without bleeding; Z87.440 Personal history of urinary (tract) infections
CPT/HCPCS: 36415; 71010; 80048; 80053; 80061; 81001; 82553; 83036; 83735; 84443; 84484; 85027; 85610; 85730; 87086; 93005; 96365; J0690; J0696; J3010; J7030; J7040; 99285-25

== ENCOUNTER → 2017-04-01 | Outpatient (CLI) | payer OTHER, MEDICARE ==
[~2017-04-01] MED LIST changes: +DIAZ5TAB4 PO; +MULT-223 PO; -MULT-91 PO; +TRAM50TA PO
--- NOTE | 2017-04-01 12:46 | KCIC ---
Indication: Severe cough. Time of exam 12:16 PM FINDINGS: The heart size is normal. The lungs are clear. No pleural effusion or pneumothorax is identified. The pulmonary vascularity is normal. IMPRESSION: No acute abnormality detected. Electronically signed by: Angel Garcia MD (04/01/2017 12:42 PM) [id number]
--- NOTE | 2017-04-01 12:47 | KCIC ---
Indication: Left leg swelling. Grayscale, color-flow and duplex Doppler evaluation of the left lower extremity deep venous system. FINDINGS: There is no evidence of a left lower extremity DVT. The left lower extremity venous system demonstrates normal compressibility with normal response to augmentation and Valsalva. There is a Matamoros's cyst measuring 1.8 x 0.9 x 1.3 cm. IMPRESSION: 1. No evidence of left lower extremity DVT. 2. Small Matamoros's cyst. Electronically signed by: Angel Garcia MD (04/01/2017 12:44 PM) [id number]
== END | disposition home or self-care (01) ==
LOC: KCIC US 11:22
PROVIDERS: ATTEND Family Medicine
DX: J40 Bronchitis, not specified as acute or chronic (principal); M71.22 Synovial cyst of popliteal space [Baker], left knee; R60.0 Localized edema
CPT/HCPCS: 71020; 93971

== ENCOUNTER → 2017-04-01 | Outpatient (CLI) | payer MEDICARE, BC, OTHER | END | disposition home or self-care (01) | LOC: KCIC 12:07 | PROVIDERS: ATTEND Family Medicine ==

== ENCOUNTER → 2017-07-23 | Outpatient (CLI) | payer OTHER, BC | END | disposition home or self-care (01) | LOC: KCIC 14:48 | DX: M19.122 Post-traumatic osteoarthritis, left elbow (principal) | CPT/HCPCS: 73080 ==

== ENCOUNTER 2017-11-24 13:14 | Inpatient (IN) | payer OTHER, BC ==
[2017-11-24] MEDS: NITROGLYCERIN OINT 1 GM PACKET. TP ×2 (13:56)
[2017-11-24 14:00] LABS: ADD MAN DIFF? NO
[2017-11-24 14:04] LABS: BASO % 1 % (0-3); EOS # 0.1 x10^3/uL (0.0-0.7); EOS % 1 % (0-3); HEMATOCRIT 45.4 % (36.0-47.0); HEMOGLOBIN 15.6 g/dL (12.0-15.5); LYMPH # 1.6 x10^3/uL (1.0-4.8); LYMPH % 24 % (24-48); MEAN CORPUSCULAR HEMOGLOBIN 30 pg (25-35); MEAN CORPUSCULAR HGB CONC 34 g/dL (31-37); MEAN CORPUSCULAR VOLUME 87 fL (79-100); MONO # 0.4 x10^3/uL (0.0-1.1); MONO % 6 % (0-9); NEUT # 4.5 x10^3uL (1.8-7.7); NEUT % 68 % (31-73); PLATELET COUNT 199 x10^3/uL (140-400); RED BLOOD COUNT 5.24 x10^6/uL (3.50-5.40); WHITE BLOOD COUNT 6.5 x10^3/uL (4.0-11.0)
[2017-11-24 14:12] LABS: ANION GAP 10 (6-14); BLOOD UREA NITROGEN 15 mg/dL (7-20); BUN/CREATININE RATIO 25 (6-20); CALCIUM 9.2 mg/dL (8.5-10.1); CARBON DIOXIDE 25 mmol/L (21-32); CHLORIDE 105 mmol/L (98-107); CREATININE 0.6 mg/dL (0.6-1.0); GLUCOSE 105 mg/dL (70-99); POTASSIUM 4.9 mmol/L (3.5-5.1); SODIUM 140 mmol/L (136-145)
[2017-11-24 14:18] LABS: ALBUMIN 3.7 g/dL (3.4-5.0); ALBUMIN/GLOBULIN RATIO 1.4 (1.0-1.7); ALK PHOS 76 U/L (46-116); ALT (SGPT) 27 U/L (14-59); AST (SGOT) 29 U/L (15-37); TOTAL BILIRUBIN 1.2 mg/dL (0.2-1.0); TOTAL PROTEIN 6.4 g/dL (6.4-8.2)
[2017-11-24 14:21] LABS: TROPONINI < 0.017 ng/mL (0.000-0.055)
[2017-11-24 14:42] LABS: CKMB MASS < 0.5 ng/mL (0.0-3.6); CREATINE KINASE 64 U/L (26-192)
[2017-11-24 14:42] LABS: NT-PRO BNP 189 pg/mL (0-124)
[2017-11-24 18:10] LABS: TROPONINI < 0.017 ng/mL (0.000-0.055)
[2017-11-24] MEDS ORDERED: traMADol 50 MG TABLET PO ×2 (20:45)
[2017-11-24] MEDS: WARFARIN 2 MG TABLET. PO ×2 (21:26)
[2017-11-24] MEDS: WARFARIN 5 MG TABLET. PO ×2 (21:26)
[2017-11-24] MEDS: METOPROLOL TART IMMED RELEASE 25 MG TABLET. PO ×2 (21:27)
[2017-11-24] MEDS: ACETAMINOPHEN 500 MG TABLET PO ×2 (21:27)
[2017-11-24] MEDS: ATORVASTATIN CALCIUM 10 MG TABLET. PO ×2 (21:27)
[2017-11-24 21:33] LABS: TROPONINI < 0.017 ng/mL (0.000-0.055)
[2017-11-24] MEDS: diazePAM 5 MG TABLET PO ×2 (23:54)
[2017-11-25] MEDS: PANTOPRAZOLE 40 MG TABLET.DR. PO ×2 (07:30)
[2017-11-25] MEDS: METOPROLOL TART IMMED RELEASE 25 MG TABLET. PO ×4 (08:57→11:49)
[2017-11-25] MEDS ORDERED: WARFARIN 2 MG TABLET. PO ×2 (09:00)
[2017-11-25] MEDS ORDERED: WARFARIN 5 MG TABLET. PO ×2 (09:00)
[2017-11-25 09:03] LABS: ALBUMIN 3.3 g/dL (3.4-5.0); ALBUMIN/GLOBULIN RATIO 1.2 (1.0-1.7); ALK PHOS 64 U/L (46-116); ALT (SGPT) 24 U/L (14-59); ANION GAP 6 (6-14); AST (SGOT) 18 U/L (15-37); BLOOD UREA NITROGEN 14 mg/dL (7-20); BUN/CREATININE RATIO 16 (6-20); CALCIUM 8.4 mg/dL (8.5-10.1); CARBON DIOXIDE 31 mmol/L (21-32); CHLORIDE 106 mmol/L (98-107); CREATININE 0.9 mg/dL (0.6-1.0); GFR 61.4; GLUCOSE 111 mg/dL (70-99); HEMATOCRIT 42.2 % (36.0-47.0); HEMOGLOBIN 14.3 g/dL (12.0-15.5); MEAN CORPUSCULAR HEMOGLOBIN 30 pg (25-35); MEAN CORPUSCULAR HGB CONC 34 g/dL (31-37); MEAN CORPUSCULAR VOLUME 88 fL (79-100); PLATELET COUNT 183 x10^3/uL (140-400); POTASSIUM 4.4 mmol/L (3.5-5.1); RED BLOOD COUNT 4.82 x10^6/uL (3.50-5.40); RED CELL DISTRIBUTION WIDTH 14.4 % (11.5-14.5); SODIUM 143 mmol/L (136-145); TOTAL BILIRUBIN 1.8 mg/dL (0.2-1.0); TOTAL PROTEIN 6.1 g/dL (6.4-8.2); WHITE BLOOD COUNT 4.7 x10^3/uL (4.0-11.0)
[2017-11-25 09:45] LABS: INR 1.8 (0.8-1.1); PROTHROMBIN TIME PATIENT 20.6 SEC (11.7-14.0)
[2017-11-25] MEDS: MULTIVITAMIN with MINERAL TABLET. PO ×2 (11:48)
[2017-11-25] MEDS: hydrALAZINE 20 MG/ML VIAL. IVP ×2 (11:48)
[2017-11-25] MEDS ORDERED: CONTRAST GIVEN MC ×2 (15:00)
[2017-11-25] MEDS: diphenhydrAMINE 50 MG/ML VIAL IVP ×2 (15:04)
[2017-11-25] MEDS: IOHEXOL 300 MG/ML 100ML VIAL. IV ×2 (15:30)
[2017-11-25] MEDS: WARFARIN 2 MG TABLET. PO ×2 (18:11)
[2017-11-25] MEDS: WARFARIN 5 MG TABLET. PO ×2 (18:11)
[2017-11-25] MEDS: LISINOPRIL 20 MG TABLET PO ×2 (18:12)
[2017-11-25] MEDS: METOPROLOL TART IMMED RELEASE 50 MG TABLET. PO ×2 (21:14)
[2017-11-25] MEDS: diazePAM 5 MG TABLET PO ×2 (21:14)
[2017-11-26 04:29] LABS: INR 1.8 (0.8-1.1)
[2017-11-26] MEDS: ATORVASTATIN CALCIUM 10 MG TABLET. PO ×2 (09:33)
[2017-11-26] MEDS: ACETAMINOPHEN 500 MG TABLET PO ×2 (09:33)
[2017-11-26] MEDS: LISINOPRIL 20 MG TABLET PO ×2 (09:34)
[2017-11-26] MEDS: METOPROLOL TART IMMED RELEASE 50 MG TABLET. PO ×2 (09:34)
[2017-11-26] MEDS: PANTOPRAZOLE 40 MG TABLET.DR. PO ×2 (09:34)
[2017-11-26] MEDS: MULTIVITAMIN with MINERAL TABLET. PO ×2 (09:34)
== END 2017-11-26 14:03 | disposition home or self-care (01) | DRG 880 ==
LOC: ER 13:14 → ED HOLD 15:00 → 2 NORTH 17:24
DX: F41.9 Anxiety disorder, unspecified (principal); R07.89 Other chest pain (principal); I48.91 Unspecified atrial fibrillation; I48.0 Paroxysmal atrial fibrillation; Z68.42 Body mass index [BMI] 45.0-49.9, adult; I10 Essential (primary) hypertension; E78.5 Hyperlipidemia, unspecified; K21.9 Gastro-esophageal reflux disease without esophagitis; M19.90 Unspecified osteoarthritis, unspecified site; E03.9 Hypothyroidism, unspecified; E78.00 Pure hypercholesterolemia, unspecified; E66.9 Obesity, unspecified; I16.0 Hypertensive urgency; I25.2 Old myocardial infarction; K44.9 Diaphragmatic hernia without obstruction or gangrene; Z86.73 Personal history of transient ischemic attack (TIA), and cerebral infarction without residual deficits; H54.7 Unspecified visual loss; Z82.49 Family history of ischemic heart disease and other diseases of the circulatory system; K29.70 Gastritis, unspecified, without bleeding; Z85.828 Personal history of other malignant neoplasm of skin; Z87.01 Personal history of pneumonia (recurrent); Z90.49 Acquired absence of other specified parts of digestive tract; Z90.89 Acquired absence of other organs; Z87.440 Personal history of urinary (tract) infections; Z79.01 Long term (current) use of anticoagulants; Z88.6 Allergy status to analgesic agent; Z90.710 Acquired absence of both cervix and uterus
CPT/HCPCS: 36415; 70450; 70496; 70498; 71045; 80053; 82553; 83880; 84484; 85025; 85027; 85610; 93005; 93306; 93970; 96374; 96375; 97161-GP; 97165-GO; 99285; 99285-25; G0378; G0379; J0360; J1200

== ENCOUNTER → 2018-04-06 | Outpatient (CLI) | payer OTHER ==
[2018-01-07 11:00] VITALS: BP 168/71
[~2018-04-06] MED LIST changes: +ACET500T68 PO; +BENZ-8 PO; +DOXY100T PO; +LISI-130 PO; +METO50TA6 PO; +PRED20TA PO; +Pantoprazole PO; +WARF-31 PO; -WARF2TAB7 PO; +WARF2TAB96 PO; -WARF5TAB7 PO
--- NOTE | 2018-04-06 14:01 | RAD ---
CT of the chest without IV contrast compared to similar examination dated January 02, 2018 for follow-up on lung nodule. TECHNIQUE: Contiguous helical 5 mm axial images are obtained from the thoracic inlet to the base of the diaphragm. Sagittal and coronal reformations are evaluated. FINDINGS: There is redemonstration of mild centrilobular emphysema predominantly at the apices. Area of scarring in the right upper lobe is redemonstrated unchanged. There are several subcentimeter pulmonary nodules scattered throughout both lungs, which are all stable and unchanged in size and character from the prior CT scan. Benignity is suspected, however follow-up CT scan to establish stability over at least one year is recommended. Nodules are seen in the right upper lobe peripherally on axial image 17, 19, and the right middle lobe on axial image 38, in the right lower lobe on axial image #30, 38, 50, and the left upper lobe on axial image 24, 28, and in the left lower lobe on axial image 22, and 36. No new lung nodules or masses are identified. No suspicious mediastinal, hilar, or axillary adenopathy is seen. Central airways are patent and grossly unremarkable. 2 distinct 1 cm nodules are seen within the left thyroid gland, with no suspicious features by CT. These can be further evaluated with thyroid ultrasound if clinically warranted. Heart size within normal limits. Evaluation of the upper abdominal organs is limited by lack of IV contrast, however no gross morphologic anomalies of the visualized organs are identified. No suspicious osteoblastic or osteolytic bone lesions are evident. IMPRESSION: 1. Multiple stable subcentimeter bilateral pulmonary nodules. Benignity is suspected, however follow-up imaging to establish stability for at least one year is recommended. 2. Normal appearance of the central airways today. 3. Mild centrilobular emphysema. 4. 2 distinct 1 cm left thyroid nodules, of doubtful clinical significance. If patient is high risk, these nodules could be further evaluated with thyroid ultrasound. Electronically signed by: Jaycob Abdi MD (04/06/2018 1:57 PM) [id number]
== END | disposition home or self-care (01) ==
LOC: CT 10:41
PROVIDERS: ATTEND Internal Medicine Pulmonary Disease
DX: J43.2 Centrilobular emphysema (principal); E04.2 Nontoxic multinodular goiter; R91.8 Other nonspecific abnormal finding of lung field; E66.01 Morbid (severe) obesity due to excess calories; I11.0 Hypertensive heart disease with heart failure; E78.00 Pure hypercholesterolemia, unspecified; E78.5 Hyperlipidemia, unspecified; I25.10 Atherosclerotic heart disease of native coronary artery without angina pectoris; I48.0 Paroxysmal atrial fibrillation; G47.33 Obstructive sleep apnea (adult) (pediatric); Z91.041 Radiographic dye allergy status; Z86.73 Personal history of transient ischemic attack (TIA), and cerebral infarction without residual deficits; Z96.653 Presence of artificial knee joint, bilateral; Z87.442 Personal history of urinary calculi; Z85.828 Personal history of other malignant neoplasm of skin; Z86.718 Personal history of other venous thrombosis and embolism; Z87.891 Personal history of nicotine dependence; Z90.49 Acquired absence of other specified parts of digestive tract; Z90.710 Acquired absence of both cervix and uterus; Z68.42 Body mass index [BMI] 45.0-49.9, adult; Z88.0 Allergy status to penicillin; Z88.1 Allergy status to other antibiotic agents; Z88.8 Allergy status to other drugs, medicaments and biological substances; Z88.5 Allergy status to narcotic agent; Z88.6 Allergy status to analgesic agent; Z82.49 Family history of ischemic heart disease and other diseases of the circulatory system; Z82.5 Family history of asthma and other chronic lower respiratory diseases
CPT/HCPCS: 71250

== ENCOUNTER 2018-07-08 12:37 | Inpatient (IN) | payer OTHER ==
[~2018-07-08] VITALS: Ht 162.6 cm; Wt 113.9 kg
--- NOTE | 2018-07-08 14:02 | RAD ---
Left lower extremity venous doppler ultrasound History: Left leg swelling Comparison: None Findings: Multiple grayscale, color, and duplex spectral analysis sonographic images were acquired of the left lower extremity veins to evaluate for the presence of DVT. There is normal phasicity. Normal compression, color-flow, and augmentation is demonstrated from the left common femoral to the popliteal veins. There is normal color flow of the proximal greater saphenous and profunda femoris veins. There is normal color flow of segments of the calf veins. There is a left popliteal fossa fluid collection about 3.7 x 2.5 x 1.3 cm. Impression: 1. There is no evidence of deep venous thrombosis from the left common femoral to popliteal veins. Electronically signed by: Rafael Nichols MD (07/08/2018 1:58 PM) [id number]
--- NOTE | 2018-07-08 14:16 | PHYS DOC ---
Past Medical History Past Medical History: A-Fib, Anxiety, CVA, GERD, High Cholesterol, Heart Disease, Hypertension, Hypothyroid, ME, Stroke Past Surgical History: Appendectomy, Cholecystectomy, Hysterectomy, Tonsillectomy Additional Past Surgical Histo: hernia, right hip, right knee, right eye, Alcohol Use: None Drug Use: None Adult General Chief Complaint Chief Complaint: LOWER EXT PAIN HPI HPI Patient is a 73 year old female who presents with complaints of LLE pain and swelling starting suddenly yesterday. Reports her pain is located in the back of her knee and radiates into her calf. There is moderate swelling noted to her anterior L knee. No bruising or deformity noted. L Anterior knee is very tender to palpation. Decreased ROM restricted by pain. Difficulty ambulating due to increased pain. Denies falling or other injuries. Denies SOA, recent travel, smoking, chest pain, SOA, dizziness or other associated symptoms. Review of Systems Review of Systems Constitutional: Denies fever or chills [] Eyes: Denies change in visual acuity, redness, or eye pain [] HENT: Denies nasal congestion or sore throat [] Respiratory: Denies cough or shortness of breath [] Cardiovascular: No additional information not addressed in HPI [] GI: Denies abdominal pain, nausea, vomiting, bloody stools or diarrhea [] : Denies dysuria or hematuria [] Musculoskeletal: Denies back pain or joint pain [] Integument: Denies rash or skin lesions [] Neurologic: Denies headache, focal weakness or sensory changes [] Endocrine: Denies polyuria or polydipsia [] All other systems were reviewed and found to be within normal limits, except as documented in this note. Current Medications Current Medications Current Medications Medications (Trade) Dose Ordered Sig/Jovanni Start Time Stop Time Status Last Admin Dose Admin Fentanyl Citrate (Fentanyl 2ml Vial) 50 mcg 1X ONCE 07/08/18 15:45 07/08/18 15:46 DC 07/08/18 17:04 50 MCG Allergies Allergies Allergies Coded Allergies Type Severity Reaction Last Updated Verified Penicillins Allergy Intermediate 09/08/16 Yes alprazolam Allergy Intermediate 09/09/16 Yes codeine Allergy Intermediate 07/02/16 Yes hydrocodone Allergy Intermediate 07/02/16 Yes meperidine Allergy Intermediate 07/02/16 Yes morphine Allergy Intermediate 07/02/16 Yes shellfish derived Allergy Intermediate 07/02/16 Yes aspirin Adverse Reaction Intermediate 07/02/16 Yes Physical Exam Physical Exam Constitutional: Well developed, well nourished, no acute distress, non-toxic appearance. [] HENT: Normocephalic, atraumatic, bilateral external ears normal, oropharynx moist, no oral exudates, nose normal. [] Eyes: PERRLA, EOMI, conjunctiva normal, no discharge. [] Neck: Normal range of motion, no tenderness, supple, no stridor. [] Cardiovascular:Heart rate regular rhythm, no murmur [] Lungs & Thorax: Bilateral breath sounds clear to auscultation [] Abdomen: Bowel sounds normal, soft, no tenderness, no masses, no pulsatile masses. [] Skin: Warm, dry, no erythema, no rash. [] Back: No tenderness, no CVA tenderness. [] Extremities: Left anterior knee tenderness upon palpation, moderate edema noted. Decreased ROM restricted by pain. No cyanosis, no clubbing. Neurologic: Alert and oriented X 3, normal motor function, normal sensory function, no focal deficits noted. [] Psychologic: Affect normal, judgement normal, mood normal. [] Current Patient Data Vital Signs Vital Signs Date Time Temp Pulse Resp B/P (MAP) Pulse Ox O2 Delivery O2 Flow Rate FiO2 07/08/18 17:04 16 95 Room Air 07/08/18 12:38 98.4 70 156/79 (104) 98.4 Lab Values Laboratory Tests Test 07/08/18 14:50 Prothrombin Time 31.4 SEC (11.7-14.0) H Prothrombin Time INR 3.0 (0.8-1.1) H EKG EKG [] Radiology/Procedures Radiology/Procedures [facility] [address] [place] [address] IMAGING REPORT Signed PATIENT: NURYS LENNON ACCOUNT: [id number] : 1945 LOCATION: ER AGE: 73 SEX: F EXAM STATUS: PRE ER ORD. PHYSICIAN: LACEY GALLOWAY DO REASON: LLE swelling and pain PROCEDURE: VENOUS LOWER EXTREMITY LEFT Left lower extremity venous doppler ultrasound History: Left leg swelling Comparison: None Findings: Multiple grayscale, color, and duplex spectral analysis sonographic images were acquired of the left lower extremity veins to evaluate for the presence of DVT. There is normal phasicity. Normal compression, color-flow, and augmentation is demonstrated from the left common femoral to the popliteal veins. There is normal color flow of the proximal greater saphenous and profunda femoris veins. There is normal color flow of segments of the calf veins. There is a left popliteal fossa fluid collection about 3.7 x 2.5 x 1.3 cm. Impression: 1. There is no evidence of deep venous thrombosis from the left common femoral to popliteal veins. Electronically signed by: Raheem Williamson MD (07/08/2018 1:58 PM) [id number] DICTATED and SIGNED BY: RAHEEM WILLIAMSON MD DATE: 07/08/18 1357 [facility] [address] [place] [address] IMAGING REPORT Signed PATIENT: NURYS LENNON ACCOUNT: [id number] : 1945 LOCATION: ER AGE: 73 SEX: F EXAM STATUS: REG ER ORD. PHYSICIAN: LACEY GALLOWAY DO REASON: left knee pain PROCEDURE: KNEE LEFT 3V Examination: 3 views of the left knee HISTORY: History of left knee pain, swelling COMPARISON: None available FINDINGS: Moderate medial, lateral, patellofemoral compartment joint space loss. Moderate knee joint effusion identified.No obvious acute fracture visualized. IMPRESSION: 1. Moderate size knee joint effusion. 2. Moderate tricompartmental degenerative changes. Electronically signed by: Richard Keys MD (07/08/2018 2:52 PM) [id number] DICTATED and SIGNED BY: RICHARD KEYS MD DATE: 07/08/18 7258 Course & Med Decision Making Course & Med Decision Making Pertinent Labs and Imaging studies reviewed. (See chart for details) Reviewed negative US results and XR results positive for effusion. She is instructed RICE therapy and follow-up with her PCP for referral to Ortho. Pt requested IM Fentanyl prior to DC, she states she had had this in the past without any issues. Due to her long list of medication allergies pt will be sent home with Lidoderm patches for pain. Also instructed to take tylenol as needed for pain. She states understanding. 1715: Staff have spent an extensive amount of time with patient attempting to assist with her transfers using a walker however pt is unable to ambulate or bear weight. Pt does live alone without any assistance, high fall risk. 1725: Call placed to Dr Morgan he will admit pt, consult ortho. Dewayneon Disclaimer Wagner Disclaimer This electronic medical record was generated, in whole or in part, using a voice recognition dictation system. Departure Departure Impression: Primary Impression: Effusion, left knee Additional Impressions: Left knee pain Chronic anticoagulation Disposition: ADMITTED INPATIENT Admitting Physician: Mckinley Morgan Condition: STABLE Referrals: VIVIAN LEMUS MD (PCP) Patient Instructions: Knee Effusion, [id number], Knee Pain, [id number], RICE - Routine Care for Injuries, [id number] Additional Instructions: RICE therapy as discussed Leave DIONI wrap in place, may take off for showers Apply Lidoderm patches 12 hours on/12 hours off Follow-up with your PCP in 4-5 days Return if symptoms worsen Scripts Lidocaine (Lidocaine) 1 Each Adh..patch 1 EACH TP DAILY, #30 PATCH Apply one patch to left knee. Leave on 12 hours/12 hours off. Prov: BRAEDEN WASSERMAN NP 07/08/18 Problem Qualifiers Additional Impressions: Left knee pain Chronicity: acute Qualified Codes: M25.562 - Pain in left knee BRAEDEN WASSERMAN NP Jul 08, 2018 14:16
--- NOTE | 2018-07-08 14:56 | RAD ---
Examination: 3 views of the left knee HISTORY: History of left knee pain, swelling COMPARISON: None available FINDINGS: Moderate medial, lateral, patellofemoral compartment joint space loss. Moderate knee joint effusion identified.No obvious acute fracture visualized. IMPRESSION: 1. Moderate size knee joint effusion. 2. Moderate tricompartmental degenerative changes. Electronically signed by: Richard Keys MD (07/08/2018 2:52 PM) [id number]
[2018-07-08] MEDS ORDERED: LIDO700A39 TP (15:07)
[2018-07-08 15:11] LABS: PROTHROMBIN TIME PATIENT 31.4 SEC (11.7-14.0)
[2018-07-08] MEDS ORDERED: fentaNYL PF VIAL 100 MCG/2 ML VIAL IM ONE (15:45)
[2018-07-08] MEDS ORDERED: ACETAMINOPHEN 325 MG TABLET. PO PRN (17:30)
--- NOTE | 2018-07-08 17:45 | PDOC1 ---
History and Physical Date of Admission Date of Admission DATE: 07/08/18 TIME: 17:44 Identification/Chief Complaint Chief Complaint seen in er, 73 year old female who presents with complaints of LLE pain and swelling starting suddenly yesterday. Reports her pain is located in the back of her knee and radiates into her calf, unrelieved with oral narcotics . There is moderate swelling noted to her anterior L knee. No bruising or deformity noted. L Anterior knee is very tender to palpation. xray c/w large effusion Decreased ROM restricted by pain. Difficulty ambulating ,. Denies falling or other injuries. Denies SOA, recent travel, smoking, chest pain, SOA Past Medical History Past Medical History Past Medical History Past Medical History: A-Fib, Anxiety, CVA, GERD, High Cholesterol, Heart Disease, Hypertension, Hypothyroid, PR, Stroke Past Surgical History: Appendectomy, Cholecystectomy, Hysterectomy, Tonsillectomy Additional Past Surgical Histo: hernia, right hip, right knee, right eye, Alcohol Use: None Drug Use: None family hx obesity Cardiovascular: AFIB, PR, Hyperlipidemia Pulmonary: Pneumonia CENTRAL NERVOUS SYSTEM: CVA GI: GERD Heme/Onc: No pertinent hx, Other Hepatobiliary: No pertinent hx Psych: Anxiety Musculoskeletal: Osteoarthritis, Swelling, Stiffness Rheumatologic: No pertinent hx Infectious disease: No pertinent hx Renal/: UTI, Other Endocrine: Hypothyroidism Past Surgical History Past Surgical History: Appendectomy, Cholecystectomy, Hysterectomy, Other Family History Family History: High Cholestrol, Hypertension Family History: Parent Social History Smoke: No ALCOHOL: none Drugs: None Current Problem List Problem List Problems Medical Problems: (1) Chronic anticoagulation Status: Acute (2) Effusion, left knee Status: Acute (3) Left knee pain Status: Acute Current Medications Current Medications Current Medications Fentanyl Citrate (Fentanyl 2ml Vial) 50 mcg 1X ONCE IM Last administered on at 17:04; Start 07/08/18 at 15:45; Stop 07/08/18 at 15:46; Status DC Acetaminophen (Tylenol) 650 mg PRN Q4HRS PRN PO PAIN; Start 07/08/18 at 17:30 ; Stop 07/09/18 at 17:29 Active Scripts Active Lidocaine 1 Each Adh..patch 1 Each TP DAILY Apply one patch to left knee. Leave on 12 hours/12 hours off. Prednisone 20 Mg Tablet 20 Mg PO DAILY 3 Days [Pantoprazole] 40 MG Tablet.dr 40 Mg PO DAILYAC 30 Days Benzonatate 100 Mg Capsule 100 Mg PO TID Doxycycline Hyclate 100 Mg Tablet 100 Mg PO BID 2 Days Metoprolol Tartrate 50 Mg Tablet 50 Mg PO BID 30 Days Diazepam 5 Mg Tablet 0.5-1 Tab PO PRN TID PRN Reported Acetaminophen 500 Mg Tablet 500 Mg PO PRN Q6HRS PRN One Daily (Multivitamin) 1 Each Tablet 1 Each PO DAILY Pravastatin Sodium 20 Mg Tablet 1 Tab PO DAILY Warfarin Sodium 5 Mg Tablet 1 Tab PO DAILY Allergies Allergies: Coded Allergies: Penicillins (Verified Allergy, Intermediate, 09/08/16) TOLERATES ROCEPHIN alprazolam (Verified Allergy, Intermediate, 09/09/16) TOLERATES DIAZEPAM codeine (Verified Allergy, Intermediate, 07/02/16) hydrocodone (Verified Allergy, Intermediate, 07/02/16) meperidine (Verified Allergy, Intermediate, 07/02/16) morphine (Verified Allergy, Intermediate, 07/02/16) shellfish derived (Verified Allergy, Intermediate, 07/02/16) aspirin (Verified Adverse Reaction, Intermediate, 07/02/16) ROS Review of System Review of Systems Review of Systems Constitutional: Denies fever or chills [] Eyes: Denies change in visual acuity, redness, or eye pain [] HENT: Denies nasal congestion or sore throat [] Respiratory: Denies cough or shortness of breath [] Cardiovascular: No additional information not addressed in HPI [] GI: Denies abdominal pain, nausea, vomiting, bloody stools or diarrhea [] : Denies dysuria or hematuria [] Musculoskeletal: Denies back pain or joint pain [] Integument: Denies rash or skin lesions [] Neurologic: Denies headache, focal weakness or sensory changes [] Endocrine: Denies polyuria or polydipsia [] 14 pt systems were reviewed and found to be within normal limits, except as documented. Breast: No New/Changing Breast Lumps, No Nipple changes, No Nipple discharge, No Other Respiratory: YES: Shortness of breath Musculoskeletal: Yes Gait Disturbance, Yes Joint Pain, Yes Joint Swelling Physical Exam Physical Exam Examination: 3 views of the left knee HISTORY: History of left knee pain, swelling COMPARISON: None available FINDINGS: Moderate medial, lateral, patellofemoral compartment joint space loss. Moderate knee joint effusion identified.No obvious acute fracture visualized. IMPRESSION: 1. Moderate size knee joint effusion. 2. Moderate tricompartmental degenerative changes. Electronically signed by: Richard Keys MD (07/08/2018 2:52 PM) [id number] General: Oriented X3, Cooperative HEENT: Atraumatic, PERRLA Lungs: Clear to auscultation Heart: RRR, no thrills, no gallops Breasts: Not examined Abdomen: Soft Rectal Exam: not examined PELVIC: Examination not indicated Extremities: No cyanosis Neuro: Normal speech, Cranial nerves 3-12 NL Psych/Mental Status: Mental status NL Vitals Vitals Vital Signs Date Time Temp Pulse Resp B/P (MAP) Pulse Ox O2 Delivery O2 Flow Rate FiO2 07/08/18 17:04 16 95 Room Air 07/08/18 12:38 98.4 70 156/79 (104) 98.4 Labs Labs Laboratory Tests Test 07/08/18 14:50 Prothrombin Time 31.4 SEC (11.7-14.0) Prothromb Time International Ratio 3.0 (0.8-1.1) Laboratory Tests Test 07/08/18 14:50 Prothrombin Time 31.4 SEC (11.7-14.0) Prothromb Time International Ratio 3.0 (0.8-1.1) Images Images Left lower extremity venous doppler ultrasound History: Left leg swelling Comparison: None Findings: Multiple grayscale, color, and duplex spectral analysis sonographic images were acquired of the left lower extremity veins to evaluate for the presence of DVT. There is normal phasicity. Normal compression, color-flow, and augmentation is demonstrated from the left common femoral to the popliteal veins. There is normal color flow of the proximal greater saphenous and profunda femoris veins. There is normal color flow of segments of the calf veins. There is a left popliteal fossa fluid collection about 3.7 x 2.5 x 1.3 cm. Impression: 1. There is no evidence of deep venous thrombosis from the left common femoral to popliteal veins. Electronically signed by: Rafael Nichols MD (07/08/2018 1:58 PM) Examination: 3 views of the left knee HISTORY: History of left knee pain, swelling COMPARISON: None available FINDINGS: Moderate medial, lateral, patellofemoral compartment joint space loss. Moderate knee joint effusion identified.No obvious acute fracture visualized. IMPRESSION: 1. Moderate size knee joint effusion. 2. Moderate tricompartmental degenerative changes. Electronically signed by: Richard Keys MD (07/08/2018 2:52 PM) [id number] VTE Prophylaxis Ordered VTE Prophylaxis Devices: Yes VTE Pharmacological Prophylaxi: Yes Assessment/Plan Assessment/Plan impression intractable left knee pain Moderate medial, lateral, patellofemoral compartment joint space loss. Moderate knee joint effusion identified.No obvious acute fracture visualized. no evidence of deep venous thrombosis from the left common femoral to popliteal veins. hypertension Morbid obesity high fall risk hx a-fib plan admit iv pain control, fentanyl ortho consult bedrest home meds dvt prophylaxis mri left knee tonight follow inr IVAN COLE MD Jul 08, 2018 17:45
[2018-07-08 19:30] VITALS: BP 146/67
[2018-07-08] MEDS ORDERED: WARF10TA40 PO (20:28)
[2018-07-08 20:36] LABS: BASO # 0.1 x10^3/uL (0.0-0.2); BASO % 1 % (0-3); EOS % 1 % (0-3); LYMPH # 1.3 x10^3/uL (1.0-4.8); LYMPH % 17 % (24-48); MEAN CORPUSCULAR HEMOGLOBIN 30 pg (25-35); MEAN CORPUSCULAR HGB CONC 34 g/dL (31-37); MEAN CORPUSCULAR VOLUME 87 fL (79-100); MONO # 0.5 x10^3/uL (0.0-1.1); MONO % 6 % (0-9); NEUT # 5.6 x10^3uL (1.8-7.7); NEUT % 75 % (31-73); PLATELET COUNT 186 x10^3/uL (140-400); RED BLOOD COUNT 5.07 x10^6/uL (3.50-5.40); RED CELL DISTRIBUTION WIDTH 14.8 % (11.5-14.5); WHITE BLOOD COUNT 7.5 x10^3/uL (4.0-11.0)
[2018-07-08 20:43] LABS: ALBUMIN 3.7 g/dL (3.4-5.0); ALBUMIN/GLOBULIN RATIO 1.2 (1.0-1.7); CALCIUM 9.3 mg/dL (8.5-10.1); CREATININE 0.8 mg/dL (0.6-1.0); GFR 70.1; POTASSIUM 4.5 mmol/L (3.5-5.1); TOTAL BILIRUBIN 1.4 mg/dL (0.2-1.0); TOTAL PROTEIN 6.8 g/dL (6.4-8.2)
[2018-07-08] MEDS ORDERED: ACETAMINOPHEN 500 MG TABLET PO PRN (20:45)
[2018-07-08] MEDS: ATORVASTATIN CALCIUM 10 MG TABLET. PO SCH ×2 (21:00→21:16)
[2018-07-08] MEDS ORDERED: BENZONATATE 100 MG PO SCH (21:00)
[2018-07-08] MEDS ORDERED: DOXYCYCLINE HYCLATE 100 MG TABLET PO SCH (21:00)
[2018-07-08] MEDS: METOPROLOL TART IMMED RELEASE 50 MG TABLET. PO SCH (21:16)
[2018-07-08] MEDS: WARFARIN 5 MG TABLET. PO SCH (21:18)
[2018-07-08] MEDS: WARFARIN 4 MG TABLET. PO SCH (21:19)
[2018-07-08] MEDS ORDERED: fentaNYL PF VIAL 100 MCG/2 ML VIAL IV PRN (21:30)
[2018-07-08] MEDS: fentaNYL PF VIAL 100 MCG/2 ML VIAL IV PRN (22:27)
[2018-07-08 23:00] VITALS: BP 152/75
[2018-07-09] MEDS: fentaNYL PF VIAL 100 MCG/2 ML VIAL IV PRN ×9 (00:47→22:42)
[2018-07-09 03:00] VITALS: BP 160/79
[2018-07-09 07:00] VITALS: BP 134/67
[2018-07-09] MEDS: PANTOPRAZOLE 40 MG TABLET.DR. PO SCH (07:30)
[2018-07-09 07:52] LABS: BASO % 0 % (0-3); EOS # 0.1 x10^3/uL (0.0-0.7); EOS % 1 % (0-3); HEMATOCRIT 40.7 % (36.0-47.0); HEMOGLOBIN 13.8 g/dL (12.0-15.5); LYMPH # 1.3 x10^3/uL (1.0-4.8); LYMPH % 18 % (24-48); MEAN CORPUSCULAR HEMOGLOBIN 29 pg (25-35); MEAN CORPUSCULAR HGB CONC 34 g/dL (31-37); MEAN CORPUSCULAR VOLUME 86 fL (79-100); MONO # 0.6 x10^3/uL (0.0-1.1); MONO % 8 % (0-9); NEUT # 5.6 x10^3uL (1.8-7.7); NEUT % 73 % (31-73); PLATELET COUNT 175 x10^3/uL (140-400); RED BLOOD COUNT 4.74 x10^6/uL (3.50-5.40); RED CELL DISTRIBUTION WIDTH 14.4 % (11.5-14.5); WHITE BLOOD COUNT 7.6 x10^3/uL (4.0-11.0)
[2018-07-09 07:56] LABS: CALCIUM 8.7 mg/dL (8.5-10.1); CREATININE 0.8 mg/dL (0.6-1.0); GFR 70.1
[2018-07-09 08:40] LABS: PROTHROMBIN TIME PATIENT 30.7 SEC (11.7-14.0)
[2018-07-09] MEDS ORDERED: predniSONE 20 MG TABLET PO SCH (09:00)
[2018-07-09] MEDS: LIDOCAINE (700MG/PATCH) PATCH. TD SCH (09:00)
[2018-07-09] MEDS: MULTIVITAMIN with MINERAL TABLET. PO SCH (09:55)
[2018-07-09] MEDS: METOPROLOL TART IMMED RELEASE 50 MG TABLET. PO SCH ×2 (09:56→21:33)
--- NOTE | 2018-07-09 10:59 | PDOC ---
PROGRESS NOTES Chief Complaint Chief Complaint Left knee Pain with swelling History of Present Illness History of Present Illness Pt seen and examined, spoke with nursing staff. Pt seen while in bed. Pt has moderate ttp to her left knee. Imaging has come back positive for moderate knee joint effusion. Ortho will be consulted Vitals Vitals Vital Signs Date Time Temp Pulse Resp B/P (MAP) Pulse Ox O2 Delivery O2 Flow Rate FiO2 07/09/18 09:56 75 134/67 07/09/18 07:00 98.2 18 93 Room Air 98.2 Physical Exam General: Oriented X3, Cooperative Lungs: Clear, Wheezing Abdomen: Soft Extremities: No cyanosis Labs LABS Laboratory Tests Test 07/08/18 14:50 07/09/18 07:30 White Blood Count 7.5 x10^3/uL (4.0-11.0) 7.6 x10^3/uL (4.0-11.0) Red Blood Count 5.07 x10^6/uL (3.50-5.40) 4.74 x10^6/uL (3.50-5.40) Hemoglobin 15.0 g/dL (12.0-15.5) 13.8 g/dL (12.0-15.5) Hematocrit 44.0 % (36.0-47.0) 40.7 % (36.0-47.0) Mean Corpuscular Volume 87 fL (79-100) 86 fL (79-100) Mean Corpuscular Hemoglobin 30 pg (25-35) 29 pg (25-35) Mean Corpuscular Hemoglobin Concent 34 g/dL (31-37) 34 g/dL (31-37) Red Cell Distribution Width 14.8 % (11.5-14.5) 14.4 % (11.5-14.5) Platelet Count 186 x10^3/uL (140-400) 175 x10^3/uL (140-400) Neutrophils (%) (Auto) 75 % (31-73) 73 % (31-73) Lymphocytes (%) (Auto) 17 % (24-48) 18 % (24-48) Monocytes (%) (Auto) 6 % (0-9) 8 % (0-9) Eosinophils (%) (Auto) 1 % (0-3) 1 % (0-3) Basophils (%) (Auto) 1 % (0-3) 0 % (0-3) Neutrophils # (Auto) 5.6 x10^3uL (1.8-7.7) 5.6 x10^3uL (1.8-7.7) Lymphocytes # (Auto) 1.3 x10^3/uL (1.0-4.8) 1.3 x10^3/uL (1.0-4.8) Monocytes # (Auto) 0.5 x10^3/uL (0.0-1.1) 0.6 x10^3/uL (0.0-1.1) Eosinophils # (Auto) 0.0 x10^3/uL (0.0-0.7) 0.1 x10^3/uL (0.0-0.7) Basophils # (Auto) 0.1 x10^3/uL (0.0-0.2) 0.0 x10^3/uL (0.0-0.2) Prothrombin Time 31.4 SEC (11.7-14.0) 30.7 SEC (11.7-14.0) Prothromb Time International Ratio 3.0 (0.8-1.1) 3.0 (0.8-1.1) Sodium Level 142 mmol/L (136-145) 138 mmol/L (136-145) Potassium Level 4.5 mmol/L (3.5-5.1) 4.0 mmol/L (3.5-5.1) Chloride Level 106 mmol/L (98-107) 104 mmol/L (98-107) Carbon Dioxide Level 28 mmol/L (21-32) 28 mmol/L (21-32) Anion Gap 8 (6-14) 6 (6-14) Blood Urea Nitrogen 12 mg/dL (7-20) 13 mg/dL (7-20) Creatinine 0.8 mg/dL (0.6-1.0) 0.8 mg/dL (0.6-1.0) Estimated GFR (Cockcroft-Gault) 70.1 70.1 BUN/Creatinine Ratio 15 (6-20) Glucose Level 111 mg/dL (70-99) 135 mg/dL (70-99) Calcium Level 9.3 mg/dL (8.5-10.1) 8.7 mg/dL (8.5-10.1) Total Bilirubin 1.4 mg/dL (0.2-1.0) Aspartate Amino Transf (AST/SGOT) 18 U/L (15-37) Alanine Aminotransferase (ALT/SGPT) 26 U/L (14-59) Alkaline Phosphatase 75 U/L (46-116) Total Protein 6.8 g/dL (6.4-8.2) Albumin 3.7 g/dL (3.4-5.0) Albumin/Globulin Ratio 1.2 (1.0-1.7) Review of Systems Review of Systems Denies CP Denies SOB Denies N/V Assessment and Plan Assessmemt and Plan Assessment: Left knee Pain with swelling Plan: Consult ortho to aspirate fluid in left knee Pain meds DVT prophylaxis Labs Home meds Comment Review of Relevant I have reviewed the following items tyrone (where applicable) has been applied. Labs Laboratory Tests Test 07/08/18 14:50 07/09/18 07:30 White Blood Count 7.5 x10^3/uL (4.0-11.0) 7.6 x10^3/uL (4.0-11.0) Red Blood Count 5.07 x10^6/uL (3.50-5.40) 4.74 x10^6/uL (3.50-5.40) Hemoglobin 15.0 g/dL (12.0-15.5) 13.8 g/dL (12.0-15.5) Hematocrit 44.0 % (36.0-47.0) 40.7 % (36.0-47.0) Mean Corpuscular Volume 87 fL (79-100) 86 fL (79-100) Mean Corpuscular Hemoglobin 30 pg (25-35) 29 pg (25-35) Mean Corpuscular Hemoglobin Concent 34 g/dL (31-37) 34 g/dL (31-37) Red Cell Distribution Width 14.8 % (11.5-14.5) 14.4 % (11.5-14.5) Platelet Count 186 x10^3/uL (140-400) 175 x10^3/uL (140-400) Neutrophils (%) (Auto) 75 % (31-73) 73 % (31-73) Lymphocytes (%) (Auto) 17 % (24-48) 18 % (24-48) Monocytes (%) (Auto) 6 % (0-9) 8 % (0-9) Eosinophils (%) (Auto) 1 % (0-3) 1 % (0-3) Basophils (%) (Auto) 1 % (0-3) 0 % (0-3) Neutrophils # (Auto) 5.6 x10^3uL (1.8-7.7) 5.6 x10^3uL (1.8-7.7) Lymphocytes # (Auto) 1.3 x10^3/uL (1.0-4.8) 1.3 x10^3/uL (1.0-4.8) Monocytes # (Auto) 0.5 x10^3/uL (0.0-1.1) 0.6 x10^3/uL (0.0-1.1) Eosinophils # (Auto) 0.0 x10^3/uL (0.0-0.7) 0.1 x10^3/uL (0.0-0.7) Basophils # (Auto) 0.1 x10^3/uL (0.0-0.2) 0.0 x10^3/uL (0.0-0.2) Prothrombin Time 31.4 SEC (11.7-14.0) 30.7 SEC (11.7-14.0) Prothromb Time International Ratio 3.0 (0.8-1.1) 3.0 (0.8-1.1) Sodium Level 142 mmol/L (136-145) 138 mmol/L (136-145) Potassium Level 4.5 mmol/L (3.5-5.1) 4.0 mmol/L (3.5-5.1) Chloride Level 106 mmol/L (98-107) 104 mmol/L (98-107) Carbon Dioxide Level 28 mmol/L (21-32) 28 mmol/L (21-32) Anion Gap 8 (6-14) 6 (6-14) Blood Urea Nitrogen 12 mg/dL (7-20) 13 mg/dL (7-20) Creatinine 0.8 mg/dL (0.6-1.0) 0.8 mg/dL (0.6-1.0) Estimated GFR (Cockcroft-Gault) 70.1 70.1 BUN/Creatinine Ratio 15 (6-20) Glucose Level 111 mg/dL (70-99) 135 mg/dL (70-99) Calcium Level 9.3 mg/dL (8.5-10.1) 8.7 mg/dL (8.5-10.1) Total Bilirubin 1.4 mg/dL (0.2-1.0) Aspartate Amino Transf (AST/SGOT) 18 U/L (15-37) Alanine Aminotransferase (ALT/SGPT) 26 U/L (14-59) Alkaline Phosphatase 75 U/L (46-116) Total Protein 6.8 g/dL (6.4-8.2) Albumin 3.7 g/dL (3.4-5.0) Albumin/Globulin Ratio 1.2 (1.0-1.7) Laboratory Tests Test 07/08/18 14:50 07/09/18 07:30 White Blood Count 7.5 x10^3/uL (4.0-11.0) 7.6 x10^3/uL (4.0-11.0) Red Blood Count 5.07 x10^6/uL (3.50-5.40) 4.74 x10^6/uL (3.50-5.40) Hemoglobin 15.0 g/dL (12.0-15.5) 13.8 g/dL (12.0-15.5) Hematocrit 44.0 % (36.0-47.0) 40.7 % (36.0-47.0) Mean Corpuscular Volume 87 fL (79-100) 86 fL (79-100) Mean Corpuscular Hemoglobin 30 pg (25-35) 29 pg (25-35) Mean Corpuscular Hemoglobin Concent 34 g/dL (31-37) 34 g/dL (31-37) Red Cell Distribution Width 14.8 % (11.5-14.5) 14.4 % (11.5-14.5) Platelet Count 186 x10^3/uL (140-400) 175 x10^3/uL (140-400) Neutrophils (%) (Auto) 75 % (31-73) 73 % (31-73) Lymphocytes (%) (Auto) 17 % (24-48) 18 % (24-48) Monocytes (%) (Auto) 6 % (0-9) 8 % (0-9) Eosinophils (%) (Auto) 1 % (0-3) 1 % (0-3) Basophils (%) (Auto) 1 % (0-3) 0 % (0-3) Neutrophils # (Auto) 5.6 x10^3uL (1.8-7.7) 5.6 x10^3uL (1.8-7.7) Lymphocytes # (Auto) 1.3 x10^3/uL (1.0-4.8) 1.3 x10^3/uL (1.0-4.8) Monocytes # (Auto) 0.5 x10^3/uL (0.0-1.1) 0.6 x10^3/uL (0.0-1.1) Eosinophils # (Auto) 0.0 x10^3/uL (0.0-0.7) 0.1 x10^3/uL (0.0-0.7) Basophils # (Auto) 0.1 x10^3/uL (0.0-0.2) 0.0 x10^3/uL (0.0-0.2) Prothrombin Time 31.4 SEC (11.7-14.0) 30.7 SEC (11.7-14.0) Prothromb Time International Ratio 3.0 (0.8-1.1) 3.0 (0.8-1.1) Sodium Level 142 mmol/L (136-145) 138 mmol/L (136-145) Potassium Level 4.5 mmol/L (3.5-5.1) 4.0 mmol/L (3.5-5.1) Chloride Level 106 mmol/L (98-107) 104 mmol/L (98-107) Carbon Dioxide Level 28 mmol/L (21-32) 28 mmol/L (21-32) Anion Gap 8 (6-14) 6 (6-14) Blood Urea Nitrogen 12 mg/dL (7-20) 13 mg/dL (7-20) Creatinine 0.8 mg/dL (0.6-1.0) 0.8 mg/dL (0.6-1.0) Estimated GFR (Cockcroft-Gault) 70.1 70.1 BUN/Creatinine Ratio 15 (6-20) Glucose Level 111 mg/dL (70-99) 135 mg/dL (70-99) Calcium Level 9.3 mg/dL (8.5-10.1) 8.7 mg/dL (8.5-10.1) Total Bilirubin 1.4 mg/dL (0.2-1.0) Aspartate Amino Transf (AST/SGOT) 18 U/L (15-37) Alanine Aminotransferase (ALT/SGPT) 26 U/L (14-59) Alkaline Phosphatase 75 U/L (46-116) Total Protein 6.8 g/dL (6.4-8.2) Albumin 3.7 g/dL (3.4-5.0) Albumin/Globulin Ratio 1.2 (1.0-1.7) Medications Current Medications Fentanyl Citrate (Fentanyl 2ml Vial) 50 mcg 1X ONCE IM Last administered on at 17:04; Start 07/08/18 at 15:45; Stop 07/08/18 at 15:46; Status DC Acetaminophen (Tylenol) 650 mg PRN Q4HRS PRN PO PAIN Last administered on 07/08at 21:17; Start 07/08/18 at 17:30; Stop 07/09/18 at 17:29 Metoprolol Tartrate (Lopressor) 50 mg BID PO Last administered on 07/09/18at 09 :56; Start 07/08/18 at 21:00 Multivitamins (Thera M Plus) 1 tab DAILY PO Last administered on 07/09/18at 09: 55; Start 07/09/18 at 09:00 Atorvastatin Calcium (Lipitor) 5 mg QHS PO ; Start 07/08/18 at 21:00 Diazepam (Valium) 2.5 mg PRN TID PRN PO ANXIETY / AGITATION; Start 07/08/18 at 20:45 Doxycycline Hyclate (Vibra-Tab) 100 mg BID PO ; Start 07/08/18 at 21:00; Status UNV Prednisone (Prednisone) 20 mg DAILY PO ; Start 07/09/18 at 09:00; Status UNV Acetaminophen (Tylenol) 500 mg PRN Q6HRS PRN PO MILD PAIN / TEMP; Start at 20:45 Non-Formulary Medication (Benzonatate ) 100 mg TID PO ; Start 07/08/18 at 21:00 ; Status UNV Lidocaine (Lidoderm) 1 patch DAILY TD ; Start 07/09/18 at 09:00 Pantoprazole Sodium (Protonix) 40 mg DAILYAC PO ; Start 07/09/18 at 07:30 Warfarin Sodium (Coumadin) 5 mg DAILY16 PO Last administered on 07/08/18at 21: 18; Start 07/08/18 at 21:30 Warfarin Sodium (Coumadin) 4 mg DAILY16 PO Last administered on 07/08/18at 21: 19; Start 07/08/18 at 21:30 Warfarin Sodium (Coumadin Per Physician) 1 each PRN DAILY PRN MC SEE COMMENTS Last administered on 07/09/18at 03:57; Start 07/08/18 at 21:15 Fentanyl Citrate (Fentanyl 2ml Vial) 50 mcg PRN Q2HR PRN IV SEVERE PAIN Last administered on 07/09/18at 05:44; Start 07/08/18 at 21:30 Fentanyl Citrate (Fentanyl 2ml Vial) 25 mcg PRN Q2HR PRN IV MODERATE PAIN; Start 07/08/18 at 21:30 Active Scripts Active Lidocaine 1 Each Adh..patch 1 Each TP DAILY Apply one patch to left knee. Leave on 12 hours/12 hours off. Prednisone 20 Mg Tablet 20 Mg PO DAILY 3 Days [Pantoprazole] 40 MG Tablet.dr 40 Mg PO DAILYAC 30 Days Benzonatate 100 Mg Capsule 100 Mg PO TID Doxycycline Hyclate 100 Mg Tablet 100 Mg PO BID 2 Days Metoprolol Tartrate 50 Mg Tablet 50 Mg PO BID 30 Days Diazepam 5 Mg Tablet 0.5-1 Tab PO PRN TID PRN Reported Warfarin Sodium 10 Mg Tablet 9 Mg PO DAILYWSUP Acetaminophen 500 Mg Tablet 500 Mg PO PRN Q6HRS PRN One Daily (Multivitamin) 1 Each Tablet 1 Each PO DAILY Pravastatin Sodium 20 Mg Tablet 1 Tab PO DAILY Warfarin Sodium 5 Mg Tablet 1 Tab PO DAILY Vitals/I & O Vital Sign - Last 24 Hours 07/08/18 07/08/18 07/08/18 07/08/18 12:38 17:04 19:30 20:50 Temp 98.4 98.1 98.4 98.1 Pulse 70 88 Resp 16 18 B/P (MAP) 156/79 (104) 146/67 (93) Pulse Ox 96 95 94 O2 Delivery Room Air Room Air Room Air Room Air 07/08/18 07/08/18 07/08/18 07/09/18 21:16 22:27 23:00 00:47 Temp 97.9 97.9 Pulse 70 82 Resp 18 B/P (MAP) 156/79 152/75 (100) Pulse Ox 94 92 92 O2 Delivery Room Air Room Air 07/09/18 07/09/18 07/09/18 07/09/18 02:40 03:00 05:44 06:14 Temp 98.2 98.2 Pulse 68 Resp 18 B/P (MAP) 160/79 (106) Pulse Ox 94 92 92 O2 Delivery Room Air Room Air Room Air Room Air 07/09/18 07/09/18 07:00 09:56 Temp 98.2 98.2 Pulse 75 75 Resp 18 B/P (MAP) 134/67 (89) 134/67 Pulse Ox 93 O2 Delivery Room Air JOSHUA LOGAN III DO Jul 09, 2018 10:58
[2018-07-09 11:00] VITALS: BP 141/69
[2018-07-09] MEDS: diazePAM 5 MG TABLET PO PRN (13:25)
[2018-07-09 15:00] VITALS: BP 133/65
[2018-07-09] MEDS: WARFARIN 5 MG TABLET. PO SCH (15:47)
[2018-07-09] MEDS: WARFARIN 4 MG TABLET. PO SCH (15:47)
[2018-07-09 19:15] VITALS: BP 155/58
[2018-07-09] MEDS: ATORVASTATIN CALCIUM 10 MG TABLET. PO SCH (21:33)
[2018-07-09 23:23] VITALS: BP 152/76
[2018-07-10] MEDS: fentaNYL PF VIAL 100 MCG/2 ML VIAL IV PRN ×8 (01:08→21:28)
[2018-07-10 03:15] VITALS: BP 123/82
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
[2018-07-10] MEDS: PANTOPRAZOLE 40 MG TABLET.DR. PO SCH (06:30)
[2018-07-10 07:00] VITALS: BP 144/42
[2018-07-10] MEDS: MULTIVITAMIN with MINERAL TABLET. PO SCH (08:19)
[2018-07-10] MEDS: diazePAM 5 MG TABLET PO PRN ×2 (08:20→16:45)
[2018-07-10] MEDS: METOPROLOL TART IMMED RELEASE 50 MG TABLET. PO SCH ×2 (08:20→21:25)
[2018-07-10 09:00] LABS: PROTHROMBIN TIME PATIENT 31.4 SEC (11.7-14.0)
[2018-07-10] MEDS: LIDOCAINE (700MG/PATCH) PATCH. TD SCH (09:00)
[2018-07-10 11:00] VITALS: BP 157/83
--- NOTE | 2018-07-10 11:38 | RAD ---
EXAM: MRI LEFT KNEE DATE: 07/10/2018 9:00 AM CLINICAL INDICATION: LEFT KNEE PAIN X4 DAYS, UNABLE TO BEAR WEIGHT. LOCKING SENSATION COMPARISON: Radiographs 07/08/2018 TECHNIQUE: Multiplanar multisequence MR imaging of the left knee was performed without IV contrast. FINDINGS: There is a moderate left knee joint effusion with associated debris and synovial thickening, synovitis. There is a small Matamoros's cyst with moderate edema tracking inferiorly along the leg suggesting partial rupture. The ACL and PCL are intact. The MCL is intact. The fibular collateral ligament, IT band, biceps femoris are intact. The popliteus is normal in signal and morphology, intact. The extensor mechanism is intact. Borderline lateral patellar tracking. 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 Medial meniscus: Medial meniscus is relatively diminutive with blunting of the body and anterior horn, possibly from prior meniscectomy or radial tear. Lateral meniscus: Grossly intact Tricompartmental osteophytes are seen. High-grade chondral thinning at the weightbearing surface of the medial femoral condyle. With regions of subchondral edema and full-thickness cartilage defects. Intermittent chondral thinning and fissuring of the weightbearing surface of the lateral compartment. Full-thickness cartilage defects at the lateral patellar facet measuring approximately 1.8 cm with subchondral marrow edema. No evidence of fracture or AVN. As above foci of subchondral edema in regions of chondromalacia. Small adherent joint body versus dystrophic calcification within Hoffa's fat pad inferiorly measuring 6 mm IMPRESSION: 1. Small Matamoros's cyst with moderate associated edema tracking inferiorly along the leg may represent partial rupture of the Matamoros's cyst. 2. Moderate left knee joint effusion with associated debris and synovial is consistent with synovitis. Although this may be from the left knee osteoarthritis, inflammatory or crystalline arthropathy may result in similar appearance. 3. No evidence of fracture or AVN. 4. Blunting of the body and anterior horn of the medial meniscus, possibly from prior partial meniscectomy or radial tear. 5. Small joint body versus dystrophic calcification within Hoffa's fat pad inferiorly measuring 6 mm. Electronically signed by: Ananth Cerda MD (07/10/2018 11:34 AM) [facility]
[2018-07-10] MEDS ORDERED: LIDOCAINE 1% Multi-Dose 20 ML VIAL. INJ ONE (12:30)
[2018-07-10] MEDS ORDERED: methylPREDNISolone ACETATE 80 MG/ML VIAL. IM ONE (12:30)
[2018-07-10] MEDS ORDERED: methylPREDNISolone ACETATE 80 MG/ML VIAL. ONE (12:30)
--- NOTE | 2018-07-10 12:58 | PDOC ---
PROGRESS NOTES Chief Complaint Chief Complaint Left knee Pain with swelling History of Present Illness History of Present Illness Pt seen and examined, spoke with nursing staff. Pt seen while in bed. Pt is in moderate distress. Pt has intractable pain associated with her left knee and the swelling there-about. Radiology shows degenerative change in her knee, a stanton's cyst, and synovitis. Will consult Neuro to rule out radiculopathy. Considering steroid injection for pain. Pt complains of nausea associated with pain. Vitals Vitals Vital Signs Date Time Temp Pulse Resp B/P (MAP) Pulse Ox O2 Delivery O2 Flow Rate FiO2 07/10/18 11:58 92 Room Air 07/10/18 11:00 97.8 94 16 157/83 (107) 97.8 Physical Exam General: Oriented X3, Cooperative, moderate distress Lungs: Clear, Wheezing Abdomen: Soft Extremities: No cyanosis, Other (Severe pain reported in LLE around knee joint) Labs LABS Laboratory Tests Test 07/10/18 07:50 Prothrombin Time 31.4 SEC (11.7-14.0) Prothromb Time International Ratio 3.0 (0.8-1.1) Review of Systems Review of Systems Denies CP Denies SOB Reports Nausea Assessment and Plan Assessmemt and Plan Assessment: Left knee Pain with swelling Plan: Consult Dr. Wise - radiculopathy? Consider Steroid injection for pain Order zofran for nausea Await neuro input Comment Review of Relevant I have reviewed the following items tyrone (where applicable) has been applied. Labs Laboratory Tests Test 07/08/18 14:50 07/09/18 07:30 07/10/18 07:50 White Blood Count 7.5 x10^3/uL (4.0-11.0) 7.6 x10^3/uL (4.0-11.0) Red Blood Count 5.07 x10^6/uL (3.50-5.40) 4.74 x10^6/uL (3.50-5.40) Hemoglobin 15.0 g/dL (12.0-15.5) 13.8 g/dL (12.0-15.5) Hematocrit 44.0 % (36.0-47.0) 40.7 % (36.0-47.0) Mean Corpuscular Volume 87 fL (79-100) 86 fL (79-100) Mean Corpuscular Hemoglobin 30 pg (25-35) 29 pg (25-35) Mean Corpuscular Hemoglobin Concent 34 g/dL (31-37) 34 g/dL (31-37) Red Cell Distribution Width 14.8 % (11.5-14.5) 14.4 % (11.5-14.5) Platelet Count 186 x10^3/uL (140-400) 175 x10^3/uL (140-400) Neutrophils (%) (Auto) 75 % (31-73) 73 % (31-73) Lymphocytes (%) (Auto) 17 % (24-48) 18 % (24-48) Monocytes (%) (Auto) 6 % (0-9) 8 % (0-9) Eosinophils (%) (Auto) 1 % (0-3) 1 % (0-3) Basophils (%) (Auto) 1 % (0-3) 0 % (0-3) Neutrophils # (Auto) 5.6 x10^3uL (1.8-7.7) 5.6 x10^3uL (1.8-7.7) Lymphocytes # (Auto) 1.3 x10^3/uL (1.0-4.8) 1.3 x10^3/uL (1.0-4.8) Monocytes # (Auto) 0.5 x10^3/uL (0.0-1.1) 0.6 x10^3/uL (0.0-1.1) Eosinophils # (Auto) 0.0 x10^3/uL (0.0-0.7) 0.1 x10^3/uL (0.0-0.7) Basophils # (Auto) 0.1 x10^3/uL (0.0-0.2) 0.0 x10^3/uL (0.0-0.2) Prothrombin Time 31.4 SEC (11.7-14.0) 30.7 SEC (11.7-14.0) 31.4 SEC (11.7-14.0) Prothromb Time International Ratio 3.0 (0.8-1.1) 3.0 (0.8-1.1) 3.0 (0.8-1.1) Sodium Level 142 mmol/L (136-145) 138 mmol/L (136-145) Potassium Level 4.5 mmol/L (3.5-5.1) 4.0 mmol/L (3.5-5.1) Chloride Level 106 mmol/L (98-107) 104 mmol/L (98-107) Carbon Dioxide Level 28 mmol/L (21-32) 28 mmol/L (21-32) Anion Gap 8 (6-14) 6 (6-14) Blood Urea Nitrogen 12 mg/dL (7-20) 13 mg/dL (7-20) Creatinine 0.8 mg/dL (0.6-1.0) 0.8 mg/dL (0.6-1.0) Estimated GFR (Cockcroft-Gault) 70.1 70.1 BUN/Creatinine Ratio 15 (6-20) Glucose Level 111 mg/dL (70-99) 135 mg/dL (70-99) Calcium Level 9.3 mg/dL (8.5-10.1) 8.7 mg/dL (8.5-10.1) Total Bilirubin 1.4 mg/dL (0.2-1.0) Aspartate Amino Transf (AST/SGOT) 18 U/L (15-37) Alanine Aminotransferase (ALT/SGPT) 26 U/L (14-59) Alkaline Phosphatase 75 U/L (46-116) Total Protein 6.8 g/dL (6.4-8.2) Albumin 3.7 g/dL (3.4-5.0) Albumin/Globulin Ratio 1.2 (1.0-1.7) Laboratory Tests Test 07/10/18 07:50 Prothrombin Time 31.4 SEC (11.7-14.0) Prothromb Time International Ratio 3.0 (0.8-1.1) Medications Current Medications Fentanyl Citrate (Fentanyl 2ml Vial) 50 mcg 1X ONCE IM Last administered on at 17:04; Start 07/08/18 at 15:45; Stop 07/08/18 at 15:46; Status DC Acetaminophen (Tylenol) 650 mg PRN Q4HRS PRN PO PAIN Last administered on 07/08at 21:17; Start 07/08/18 at 17:30; Stop 07/09/18 at 11:11; Status DC Metoprolol Tartrate (Lopressor) 50 mg BID PO Last administered on 07/10/18 08 :20; Start 07/08/18 at 21:00 Multivitamins (Thera M Plus) 1 tab DAILY PO Last administered on 07/10/18at 08: 19; Start 07/09/18 at 09:00 Atorvastatin Calcium (Lipitor) 5 mg QHS PO Last administered on 07/09/18at 21: 33; Start 07/08/18 at 21:00 Diazepam (Valium) 2.5 mg PRN TID PRN PO ANXIETY / AGITATION Last administered on 07/10/18 08:20; Start 07/08/18 at 20:45 Doxycycline Hyclate (Vibra-Tab) 100 mg BID PO ; Start 07/08/18 at 21:00; Status UNV Prednisone (Prednisone) 20 mg DAILY PO ; Start 07/09/18 at 09:00; Status UNV Acetaminophen (Tylenol) 500 mg PRN Q6HRS PRN PO MILD PAIN / TEMP; Start at 20:45 Non-Formulary Medication (Benzonatate ) 100 mg TID PO ; Start 07/08/18 at 21:00 ; Status UNV Lidocaine (Lidoderm) 1 patch DAILY TD ; Start 07/09/18 at 09:00 Pantoprazole Sodium (Protonix) 40 mg DAILYAC PO Last administered on at 06:30; Start 07/09/18 at 07:30 Warfarin Sodium (Coumadin) 5 mg DAILY16 PO Last administered on 07/09/18at 15: 47; Start 07/08/18 at 21:30 Warfarin Sodium (Coumadin) 4 mg DAILY16 PO Last administered on 07/09/18at 15: 47; Start 07/08/18 at 21:30 Warfarin Sodium (Coumadin Per Physician) 1 each PRN DAILY PRN MC SEE COMMENTS Last administered on 07/09/18at 13:01; Start 07/08/18 at 21:15 Fentanyl Citrate (Fentanyl 2ml Vial) 50 mcg PRN Q2HR PRN IV SEVERE PAIN Last administered on 07/10/18at 11:17; Start 07/08/18 at 21:30 Fentanyl Citrate (Fentanyl 2ml Vial) 25 mcg PRN Q2HR PRN IV MODERATE PAIN; Start 07/08/18 at 21:30 Methylprednisolone Acetate (DEPO-Medrol 80MG VIAL) 80 mg 1X ONCE IM ; Start at 12:30; Stop 07/10/18 at 12:31; Status DC Lidocaine HCl (Lidocaine 1% 20ml Vial) 20 ml 1X ONCE INJ ; Start 07/10/18 at 12:30; Stop 07/10/18 at 12:31; Status DC Active Scripts Active Lidocaine 1 Each Adh..patch 1 Each TP DAILY Apply one patch to left knee. Leave on 12 hours/12 hours off. Prednisone 20 Mg Tablet 20 Mg PO DAILY 3 Days [Pantoprazole] 40 MG Tablet.dr 40 Mg PO DAILYAC 30 Days Benzonatate 100 Mg Capsule 100 Mg PO TID Doxycycline Hyclate 100 Mg Tablet 100 Mg PO BID 2 Days Metoprolol Tartrate 50 Mg Tablet 50 Mg PO BID 30 Days Diazepam 5 Mg Tablet 0.5-1 Tab PO PRN TID PRN Reported Warfarin Sodium 10 Mg Tablet 9 Mg PO DAILYWSUP Acetaminophen 500 Mg Tablet 500 Mg PO PRN Q6HRS PRN One Daily (Multivitamin) 1 Each Tablet 1 Each PO DAILY Pravastatin Sodium 20 Mg Tablet 1 Tab PO DAILY Warfarin Sodium 5 Mg Tablet 1 Tab PO DAILY Vitals/I & O Vital Sign - Last 24 Hours 07/09/18 07/09/18 07/09/18 07/09/18 13:22 15:00 15:43 18:17 Temp 98.1 98.1 Pulse 71 Resp 16 B/P (MAP) 133/65 (87) Pulse Ox 91 94 94 O2 Delivery Room Air Room Air Room Air Room Air 07/09/18 07/09/18 07/09/18 07/09/18 19:15 20:30 20:36 21:33 Temp 98.8 98.8 Pulse 75 75 Resp 16 B/P (MAP) 155/58 (90) 155/58 Pulse Ox 94 O2 Delivery Room Air Room Air Room Air 07/09/18 07/09/18 07/10/18 07/10/18 22:42 23:23 01:08 03:15 Temp 98.1 98.5 98.1 98.5 Pulse 75 75 Resp 16 16 B/P (MAP) 152/76 (101) 123/82 (96) Pulse Ox 95 92 O2 Delivery Room Air Room Air Room Air Room Air 07/10/18 07/10/18 07/10/1818 03:19 05:31 07:00 08:20 Temp 98.7 98.7 Pulse 86 75 Resp 16 B/P (MAP) 144/42 (76) 123/82 Pulse Ox 91 O2 Delivery Room Air Room Air Room Air 07/10/18 07/10/18 07/10/18 07/10/18 08:20 11:00 11:17 11:58 Temp 97.8 97.8 Pulse 94 Resp 16 B/P (MAP) 157/83 (107) Pulse Ox 93 92 92 O2 Delivery Room Air Room Air Room Air Room Air Intake and Output 07/09/18 07/09/18 07/10/18 15:01 23:01 07:01 Intake Total 240 ml Output Total 1150 ml 1300 ml Balance -910 ml -1300 ml JOSHUA LOGAN III DO Jul 10, 2018 12:58
[2018-07-10] MEDS ORDERED: ONDANSETRON PF 4 MG/2 ML VIAL. IV PRN (13:15)
--- NOTE | 2018-07-10 14:10 | RAD ---
Indication: Left hip pain for one month. TECHNIQUE: 2 views of the left hip COMPARISON: None FINDINGS/ impression: No acute fracture or dislocation. Mild hip joint osteoarthritis. Electronically signed by: Guanako Guardado DO (07/10/2018 2:06 PM) [facility]
--- NOTE | 2018-07-10 14:17 | PDOC ---
Provider Note Provider Note patient seen and examined at 1245 d/w Dr. Andrade left hip imaging pending will follow CUONG HOOD MD Jul 10, 2018 14:17
--- NOTE | 2018-07-10 14:31 | PDOC ---
PROGRESS NOTES Subjective Subjective Problems overnight: Continues to have severe left leg pain and swelling, pain worse with any movement. As previously noted she complained of atraumatic onset of left leg pain and swelling over the past few days feels like the knee is locked and won't move and has pain in the back part of her thigh and calf Objective Vital Signs Vital Signs Date Time Temp Pulse Resp B/P (MAP) Pulse Ox O2 Delivery O2 Flow Rate FiO2 07/10/18 11:58 92 Room Air 07/10/18 11:00 97.8 94 16 157/83 (107) 97.8 Physical Exam On physical examination she is globally tender on palpation over her left knee no significant effusion is noted she is tender over the hamstrings and calf with any significant range of motion of the knee. It's hard to elicit a straight leg raise sign although there is some suspicion and certainly quadriceps weakness. She also has extreme pain with any internal or external rotation of the leg that seems centered around the hip and groin area on the left well-healed incision from previous surgeries on the right leg but with normal motion and stability sensation is intact in both lower extremities throughout Labs Laboratory Tests Test 07/08/18 14:50 07/09/18 07:30 07/10/18 07:50 White Blood Count 7.5 x10^3/uL (4.0-11.0) 7.6 x10^3/uL (4.0-11.0) Red Blood Count 5.07 x10^6/uL (3.50-5.40) 4.74 x10^6/uL (3.50-5.40) Hemoglobin 15.0 g/dL (12.0-15.5) 13.8 g/dL (12.0-15.5) Hematocrit 44.0 % (36.0-47.0) 40.7 % (36.0-47.0) Mean Corpuscular Volume 87 fL (79-100) 86 fL (79-100) Mean Corpuscular Hemoglobin 30 pg (25-35) 29 pg (25-35) Mean Corpuscular Hemoglobin Concent 34 g/dL (31-37) 34 g/dL (31-37) Red Cell Distribution Width 14.8 % (11.5-14.5) 14.4 % (11.5-14.5) Platelet Count 186 x10^3/uL (140-400) 175 x10^3/uL (140-400) Neutrophils (%) (Auto) 75 % (31-73) 73 % (31-73) Lymphocytes (%) (Auto) 17 % (24-48) 18 % (24-48) Monocytes (%) (Auto) 6 % (0-9) 8 % (0-9) Eosinophils (%) (Auto) 1 % (0-3) 1 % (0-3) Basophils (%) (Auto) 1 % (0-3) 0 % (0-3) Neutrophils # (Auto) 5.6 x10^3uL (1.8-7.7) 5.6 x10^3uL (1.8-7.7) Lymphocytes # (Auto) 1.3 x10^3/uL (1.0-4.8) 1.3 x10^3/uL (1.0-4.8) Monocytes # (Auto) 0.5 x10^3/uL (0.0-1.1) 0.6 x10^3/uL (0.0-1.1) Eosinophils # (Auto) 0.0 x10^3/uL (0.0-0.7) 0.1 x10^3/uL (0.0-0.7) Basophils # (Auto) 0.1 x10^3/uL (0.0-0.2) 0.0 x10^3/uL (0.0-0.2) Prothrombin Time 31.4 SEC (11.7-14.0) 30.7 SEC (11.7-14.0) 31.4 SEC (11.7-14.0) Prothromb Time International Ratio 3.0 (0.8-1.1) 3.0 (0.8-1.1) 3.0 (0.8-1.1) Sodium Level 142 mmol/L (136-145) 138 mmol/L (136-145) Potassium Level 4.5 mmol/L (3.5-5.1) 4.0 mmol/L (3.5-5.1) Chloride Level 106 mmol/L (98-107) 104 mmol/L (98-107) Carbon Dioxide Level 28 mmol/L (21-32) 28 mmol/L (21-32) Anion Gap 8 (6-14) 6 (6-14) Blood Urea Nitrogen 12 mg/dL (7-20) 13 mg/dL (7-20) Creatinine 0.8 mg/dL (0.6-1.0) 0.8 mg/dL (0.6-1.0) Estimated GFR (Cockcroft-Gault) 70.1 70.1 BUN/Creatinine Ratio 15 (6-20) Glucose Level 111 mg/dL (70-99) 135 mg/dL (70-99) Calcium Level 9.3 mg/dL (8.5-10.1) 8.7 mg/dL (8.5-10.1) Total Bilirubin 1.4 mg/dL (0.2-1.0) Aspartate Amino Transf (AST/SGOT) 18 U/L (15-37) Alanine Aminotransferase (ALT/SGPT) 26 U/L (14-59) Alkaline Phosphatase 75 U/L (46-116) Total Protein 6.8 g/dL (6.4-8.2) Albumin 3.7 g/dL (3.4-5.0) Albumin/Globulin Ratio 1.2 (1.0-1.7) Laboratory Tests Test 07/10/18 07:50 Prothrombin Time 31.4 SEC (11.7-14.0) Prothromb Time International Ratio 3.0 (0.8-1.1) Imaging X-rays of the left hip show no evidence of fracture or bony abnormality only mild degenerative change Assessment Assessment POD# [], S/P [] Plan Plan of Care Given her ongoing and unremittent severe left leg pain with negative hip x-rays I discussed with her recommendation for MRI of her left hip as well as lumbar spine to evaluate possible radicular pain etiology. Given that the did not seem to have a mechanical type cause of the locking and pain that she describes she may just have some inflammation and we discussed the possibility of corticosteroid injection in the left knee. After informed consent was obtained left knee was injected with 1 mL 80 mg/mm Depo-Medrol under sterile conditions with 2 mL of 1% plain lidocaine through a lateral suprapatellar approach. She tolerated this well and will keep track of how well and how long this works also awaiting the hip and lumbar spine MRI results RIAZ RODRIGUEZ MD Jul 10, 2018 14:31
[2018-07-10 15:00] VITALS: BP 192/83
[2018-07-10] MEDS: WARFARIN 5 MG TABLET. PO SCH (16:44)
[2018-07-10] MEDS: WARFARIN 4 MG TABLET. PO SCH (16:44)
[2018-07-10 19:00] VITALS: BP 151/70
[2018-07-10] MEDS: ATORVASTATIN CALCIUM 10 MG TABLET. PO SCH (21:24)
[2018-07-10 23:00] VITALS: BP 105/62
[2018-07-11 03:00] VITALS: BP 132/60
[2018-07-11 04:51] LABS: PROTHROMBIN TIME PATIENT 33.3 SEC (11.7-14.0)
[2018-07-11] MEDS: diazePAM 5 MG TABLET PO PRN ×2 (04:58→11:52)
[2018-07-11] MEDS: fentaNYL PF VIAL 100 MCG/2 ML VIAL IV PRN ×5 (05:00→20:20)
[2018-07-11 07:00] VITALS: BP 137/57
--- NOTE | 2018-07-11 08:32 | RAD ---
EXAMINATION: Magnetic resonance imaging (MRI) of the lumbar spine without contrast 07/10/2018 2:21 PM HISTORY: Left leg pain. Atraumatic. TECHNIQUE: Multiplanar multi-weighted MRI of the lumbar spine was performed without intravenous contrast using the standard lumbar spine protocol. Contrast information: None administered. COMPARISON: None available. FINDINGS: Vertebral bodies demonstrate normal signal intensity on all sequences. There are no compression fractures. The conus medullaris terminates at the level of L1. The distal spinal cord signal intensity is normal. There is disc desiccation at L1-L2, L3-L4, L4-L5 and L5-S1 there is minimal retrolisthesis of L1 on L2 and T12 on L1 Limited views of the abdomen and pelvis show no soft tissue abnormality. The aorta is normal. T12-L1: There is mild disc bulge. There is no significant facet arthropathy. No neuroforaminal or spinal canal stenosis. L1-L2: There is mild disc bulge. There is mild facet arthropathy. There is no neuroforaminal stenosis. There is no spinal canal stenosis. L2-L3: The disc is normal in configuration. There is mild facet arthropathy. There is no neuroforaminal stenosis. There is no spinal canal stenosis. L3-L4: Mild disc bulge with central annular fissure There is mild facet arthropathy. There is no neuroforaminal stenosis. There is no spinal canal stenosis. L4-L5: There is mild disc bulge with left central annular fissure with disc protrusion. There is moderate facet arthropathy. There is no neuroforaminal stenosis. There is no spinal canal stenosis. L5-S1: There is a right foraminal disc protrusion. There is mild to moderate facet arthropathy. There is mild/moderate right neuroforaminal stenosis. There is no spinal canal stenosis. IMPRESSION: Mild degenerative changes of the lumbar spine as described in detail above. Electronically signed by: Judy Mena MD (07/11/2018 8:28 AM) [id number]
[2018-07-11] MEDS: METOPROLOL TART IMMED RELEASE 50 MG TABLET. PO SCH ×2 (08:36→20:19)
[2018-07-11] MEDS: PANTOPRAZOLE 40 MG TABLET.DR. PO SCH (08:37)
[2018-07-11] MEDS: LIDOCAINE (700MG/PATCH) PATCH. TD SCH (08:45)
[2018-07-11] MEDS: MULTIVITAMIN with MINERAL TABLET. PO SCH (08:53)
[2018-07-11 11:00] VITALS: BP 152/72
--- NOTE | 2018-07-11 12:59 | PDOC ---
PROGRESS NOTES Chief Complaint Chief Complaint Left knee Pain with swelling, PERSISTENT Moderate left knee joint effusion with associated debris and synovial is consistent with synovitis. Although this may be from the left knee osteoarthritis, inflammatory or crystalline arthropathy may result in similar appearance. Continues to have severe left leg pain and swelling, pain worse with any movement. History of Present Illness History of Present Illness Pt seen and examined, spoke with nursing staff. Pt seen while in bed. Pt is in moderate distress. Pt has intractable pain associated with her left knee and the swelling there-about. Radiology shows degenerative change in her knee, a matamoros's cyst, and synovitis. Will consult Neuro to rule out radiculopathy. Considering steroid injection for pain. Pt complains of nausea associated with pain. Vitals Vitals Vital Signs Date Time Temp Pulse Resp B/P (MAP) Pulse Ox O2 Delivery O2 Flow Rate FiO2 07/11/18 11:53 90 Room Air 07/11/18 11:00 98.1 67 16 152/72 (98) 98.1 Physical Exam Physical Exam General: Oriented X3, Cooperative HEENT: Atraumatic, PERRLA Lungs: Clear to auscultation Heart: RRR, no thrills, no gallops Breasts: Not examined Abdomen: Soft Rectal Exam: not examined PELVIC: Examination not indicated Extremities: No cyanosis Neuro: Normal speech, Cranial nerves 3-12 NL Psych/Mental Status: Mental status NL General: Oriented X3, Cooperative, moderate distress Lungs: Clear, Wheezing Abdomen: Soft Extremities: No cyanosis, Other (Severe pain reported in LLE around knee joint) Labs LABS EXAM: MRI LEFT KNEE DATE: 07/10/2018 9:00 AM CLINICAL INDICATION: LEFT KNEE PAIN X4 DAYS, UNABLE TO BEAR WEIGHT. LOCKING SENSATION COMPARISON: Radiographs 07/08/2018 TECHNIQUE: Multiplanar multisequence MR imaging of the left knee was performed without IV contrast. FINDINGS: There is a moderate left knee joint effusion with associated debris and synovial thickening, synovitis. There is a small Matamoros's cyst with moderate edema tracking inferiorly along the leg suggesting partial rupture. The ACL and PCL are intact. The MCL is intact. The fibular collateral ligament, IT band, biceps femoris are intact. The popliteus is normal in signal and morphology, intact. The extensor mechanism is intact. Borderline lateral patellar tracking. 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 Medial meniscus: Medial meniscus is relatively diminutive with blunting of the body and anterior horn, possibly from prior meniscectomy or radial tear. Lateral meniscus: Grossly intact Tricompartmental osteophytes are seen. High-grade chondral thinning at the weightbearing surface of the medial femoral condyle. With regions of subchondral edema and full-thickness cartilage defects. Intermittent chondral thinning and fissuring of the weightbearing surface of the lateral compartment. Full-thickness cartilage defects at the lateral patellar facet measuring approximately 1.8 cm with subchondral marrow edema. No evidence of fracture or AVN. As above foci of subchondral edema in regions of chondromalacia. Small adherent joint body versus dystrophic calcification within Hoffa's fat pad inferiorly measuring 6 mm IMPRESSION: 1. Small Matamoros's cyst with moderate associated edema tracking inferiorly along the leg may represent partial rupture of the Matamoros's cyst. 2. Moderate left knee joint effusion with associated debris and synovial is consistent with synovitis. Although this may be from the left knee osteoarthritis, inflammatory or crystalline arthropathy may result in similar appearance. 3. No evidence of fracture or AVN. 4. Blunting of the body and anterior horn of the medial meniscus, possibly from prior partial meniscectomy or radial tear. 5. Small joint body versus dystrophic calcification within Hoffa's fat pad inferiorly measuring 6 mm. Electronically signed by: Ananth Pedro MD (07/10/2018 11:34 AM) [facility] DICTATED and SIGNED BY: ANANTH PEDRO MD DATE: 07/10/18 1112 EXAMINATION: Magnetic resonance imaging (MRI) of the lumbar spine without contrast 07/10/2018 2:21 PM HISTORY: Left leg pain. Atraumatic. TECHNIQUE: Multiplanar multi-weighted MRI of the lumbar spine was performed without intravenous contrast using the standard lumbar spine protocol. Contrast information: None administered. COMPARISON: None available. FINDINGS: Vertebral bodies demonstrate normal signal intensity on all sequences. There are no compression fractures. The conus medullaris terminates at the level of L1. The distal spinal cord signal intensity is normal. There is disc desiccation at L1-L2, L3-L4, L4-L5 and L5-S1 there is minimal retrolisthesis of L1 on L2 and T12 on L1 Limited views of the abdomen and pelvis show no soft tissue abnormality. The aorta is normal. T12-L1: There is mild disc bulge. There is no significant facet arthropathy. No neuroforaminal or spinal canal stenosis. L1-L2: There is mild disc bulge. There is mild facet arthropathy. There is no neuroforaminal stenosis. There is no spinal canal stenosis. L2-L3: The disc is normal in configuration. There is mild facet arthropathy. There is no neuroforaminal stenosis. There is no spinal canal stenosis. L3-L4: Mild disc bulge with central annular fissure There is mild facet arthropathy. There is no neuroforaminal stenosis. There is no spinal canal stenosis. L4-L5: There is mild disc bulge with left central annular fissure with disc protrusion. There is moderate facet arthropathy. There is no neuroforaminal stenosis. There is no spinal canal stenosis. L5-S1: There is a right foraminal disc protrusion. There is mild to moderate facet arthropathy. There is mild/moderate right neuroforaminal stenosis. There is no spinal canal stenosis. IMPRESSION: Mild degenerative changes of the lumbar spine as described in detail above. Electronically signed by: Judy Mena MD (07/11/2018 8:28 AM) [email or web address] Laboratory Tests Test 07/11/18 04:05 Prothrombin Time 33.3 SEC (11.7-14.0) Prothromb Time International Ratio 3.3 (0.8-1.1) Assessment and Plan Assessmemt and Plan Problems Medical Problems: (1) Chronic anticoagulation Status: Acute (2) Effusion, left knee Status: Acute (3) Left knee pain Status: Acute Comment Review of Relevant I have reviewed the following items tyrone (where applicable) has been applied. Labs Laboratory Tests Test 07/10/18 07:50 07/11/18 04:05 Prothrombin Time 31.4 SEC (11.7-14.0) 33.3 SEC (11.7-14.0) Prothromb Time International Ratio 3.0 (0.8-1.1) 3.3 (0.8-1.1) Laboratory Tests Test 07/11/18 04:05 Prothrombin Time 33.3 SEC (11.7-14.0) Prothromb Time International Ratio 3.3 (0.8-1.1) Medications Current Medications Fentanyl Citrate (Fentanyl 2ml Vial) 50 mcg 1X ONCE IM Last administered on at 17:04; Start 07/08/18 at 15:45; Stop 07/08/18 at 15:46; Status DC Acetaminophen (Tylenol) 650 mg PRN Q4HRS PRN PO PAIN Last administered on 07/08at 21:17; Start 07/08/18 at 17:30; Stop 07/09/18 at 11:11; Status DC Metoprolol Tartrate (Lopressor) 50 mg BID PO Last administered on 07/11/18at 08 :36; Start 07/08/18 at 21:00 Multivitamins (Thera M Plus) 1 tab DAILY PO Last administered on 07/11/18at 08: 53; Start 07/09/18 at 09:00 Atorvastatin Calcium (Lipitor) 5 mg QHS PO Last administered on 07/10/18at 21: 24; Start 07/08/18 at 21:00 Diazepam (Valium) 2.5 mg PRN TID PRN PO ANXIETY / AGITATION Last administered on 07/10/18at 16:45; Start 07/08/18 at 20:45; Stop 07/10/18 at 19:45; Status DC Doxycycline Hyclate (Vibra-Tab) 100 mg BID PO ; Start 07/08/18 at 21:00; Status UNV Prednisone (Prednisone) 20 mg DAILY PO ; Start 07/09/18 at 09:00; Status UNV Acetaminophen (Tylenol) 500 mg PRN Q6HRS PRN PO MILD PAIN / TEMP; Start at 20:45 Non-Formulary Medication (Benzonatate ) 100 mg TID PO ; Start 07/08/18 at 21:00 ; Status UNV Lidocaine (Lidoderm) 1 patch DAILY TD Last administered on 07/11/18at 08:45; Start 07/09/18 at 09:00 Pantoprazole Sodium (Protonix) 40 mg DAILYAC PO Last administered on at 08:37; Start 07/09/18 at 07:30 Warfarin Sodium (Coumadin) 5 mg DAILY16 PO Last administered on 07/10/18at 16: 44; Start 07/08/18 at 21:30 Warfarin Sodium (Coumadin) 4 mg DAILY16 PO Last administered on 07/10/18at 16: 44; Start 07/08/18 at 21:30 Warfarin Sodium (Coumadin Per Physician) 1 each PRN DAILY PRN MC SEE COMMENTS Last administered on 07/09/18at 13:01; Start 07/08/18 at 21:15 Fentanyl Citrate (Fentanyl 2ml Vial) 50 mcg PRN Q2HR PRN IV SEVERE PAIN Last administered on 07/11/18at 11:53; Start 07/08/18 at 21:30 Fentanyl Citrate (Fentanyl 2ml Vial) 25 mcg PRN Q2HR PRN IV MODERATE PAIN; Start 07/08/18 at 21:30 Methylprednisolone Acetate (DEPO-Medrol 80MG VIAL) 80 mg 1X ONCE IM ; Start at 12:30; Stop 07/10/18 at 12:31; Status DC Lidocaine HCl (Lidocaine 1% 20ml Vial) 20 ml 1X ONCE INJ ; Start 07/10/18 at 12:30; Stop 07/10/18 at 12:31; Status DC Ondansetron HCl (Zofran) 4 mg PRN Q6HRS PRN IV NAUSEA/VOMITING Last administered on 07/10/18at 14:45; Start 07/10/18 at 13:15 Diazepam (Valium) 5 mg PRN TID PRN PO ANXIETY / AGITATION Last administered on 07/11/18at 11:52; Start 07/10/18 at 19:45; Stop 07/11/18 at 19:44 Active Scripts Active Lidocaine 1 Each Adh..patch 1 Each TP DAILY Apply one patch to left knee. Leave on 12 hours/12 hours off. Prednisone 20 Mg Tablet 20 Mg PO DAILY 3 Days [Pantoprazole] 40 MG Tablet.dr 40 Mg PO DAILYAC 30 Days Benzonatate 100 Mg Capsule 100 Mg PO TID Doxycycline Hyclate 100 Mg Tablet 100 Mg PO BID 2 Days Metoprolol Tartrate 50 Mg Tablet 50 Mg PO BID 30 Days Diazepam 5 Mg Tablet 0.5-1 Tab PO PRN TID PRN Reported Warfarin Sodium 10 Mg Tablet 9 Mg PO DAILYWSUP Acetaminophen 500 Mg Tablet 500 Mg PO PRN Q6HRS PRN One Daily (Multivitamin) 1 Each Tablet 1 Each PO DAILY Pravastatin Sodium 20 Mg Tablet 1 Tab PO DAILY Warfarin Sodium 5 Mg Tablet 1 Tab PO DAILY Vitals/I & O Vital Sign - Last 24 Hours 07/10/18 07/10/18 07/10/18 07/10/18 14:46 15:00 16:39 19:00 Temp 98.1 98.5 98.1 98.5 Pulse 84 99 Resp 16 16 B/P (MAP) 192/83 (119) 151/70 (97) Pulse Ox 91 91 90 O2 Delivery Room Air Room Air Room Air Room Air 07/10/18 07/10/18 07/10/18 07/10/18 20:46 21:25 21:28 23:00 Temp 98.5 98.5 Pulse 99 99 Resp 16 B/P (MAP) 151/70 105/62 (76) Pulse Ox 90 O2 Delivery Room Air Room Air Room Air 07/11/18 07/11/18 07/11/18 07/11/18 03:00 05:00 07:00 08:36 Temp 98.2 98.1 98.2 98.1 Pulse 79 74 79 Resp 16 16 B/P (MAP) 132/60 (84) 137/57 (83) 132/60 Pulse Ox 90 92 O2 Delivery Room Air Room Air Room Air 07/11/18 07/11/18 07/11/18 07/11/18 08:38 09:15 11:00 11:53 Temp 98.1 98.1 Pulse 67 Resp 16 B/P (MAP) 152/72 (98) Pulse Ox 90 92 90 O2 Delivery Room Air Room Air Room Air Room Air Intake and Output 07/10/18 07/10/18 07/11/18 15:01 23:01 07:01 Intake Total 0 ml 120 ml Output Total 1900 ml 1050 ml Balance -1900 ml -930 ml IVAN COLE MD Jul 11, 2018 12:59
--- NOTE | 2018-07-11 13:53 | RAD ---
MR of the left hip Indication: Left hip pain. Technique: Standard multiplanar sequences are obtained. FINDINGS: Artifact: No significant image degradation. Bones: No bone lesion, acute fracture or acute bone marrow edema. No femoral head osteonecrosis. Effusion: No significant effusion Joint: No advanced primary osteoarthritis. Labrum: No evidence of labral tear or para labral cyst Gluteus minimus tendon: Mild tendinosis, with mild edema here, no high-grade tear. Gluteus medius tendon: Intact Hamstring tendon: Intact Iliopsoas tendon: Intact Rectus femoris tendon attachment:Intact Soft tissue:No significant acute findings. IMPRESSION: 1. Mild left gluteus minimus tendinosis, no high-grade tear. 2. No other abnormality. Electronically signed by: Tex Madrid MD (07/11/2018 1:49 PM) [email or web address]
[2018-07-11 15:00] VITALS: BP 149/62
[2018-07-11] MEDS ORDERED: WARFARIN 5 MG TABLET. PO ONE (16:15)
[2018-07-11 19:00] VITALS: BP 129/52
[2018-07-11] MEDS: ATORVASTATIN CALCIUM 10 MG TABLET. PO SCH (20:19)
[2018-07-11 23:00] VITALS: BP 119/47
[2018-07-12] MEDS: fentaNYL PF VIAL 100 MCG/2 ML VIAL IV PRN ×4 (00:33→09:06)
[2018-07-12 03:00] VITALS: BP 139/65
[2018-07-12] MEDS: PANTOPRAZOLE 40 MG TABLET.DR. PO SCH (06:47)
[2018-07-12 07:00] VITALS: BP 175/72
[2018-07-12] MEDS: MULTIVITAMIN with MINERAL TABLET. PO SCH (08:58)
[2018-07-12] MEDS: METOPROLOL TART IMMED RELEASE 50 MG TABLET. PO SCH ×2 (08:59→20:07)
[2018-07-12] MEDS: LIDOCAINE (700MG/PATCH) PATCH. TD SCH (10:03)
[2018-07-12 11:00] VITALS: BP 122/62
--- NOTE | 2018-07-12 12:21 | PDOC ---
PROGRESS NOTES Chief Complaint Chief Complaint Left knee Pain with swelling, PERSISTENT - Unable to walk Continues to have severe left leg pain and swelling, pain worse with any movement. History of Present Illness History of Present Illness Pt seen and examined, spoke with nursing staff. Pt seen while in bed. Pt is in moderate distress. Overnight only fentanyl IV for pain. Pt has intractable pain associated with her left knee and the swelling, cannot tolerate passive or active movement beyond 3-5 degrees. Radiology shows degenerative change in her knee, a stanton's cyst, and synovitis. steroid injection for pain gave brief relief. Pt complains of nausea associated with pain. Plan: Will consult Neuro to rule out radiculopathy. There may be a psych component as well, possible somatization as she perseverates on right knee pain from the - will try tramadol Moderate left knee joint effusion with associated debris and synovial is consistent with synovitis. Although this may be from the left knee osteoarthritis, inflammatory or crystalline arthropathy may result in similar appearance. Hip and lumbar MRI not contributory Vitals Vitals Vital Signs Date Time Temp Pulse Resp B/P (MAP) Pulse Ox O2 Delivery O2 Flow Rate FiO2 07/12/18 09:36 16 Room Air 07/12/18 08:59 68 175/72 07/12/18 07:00 97.9 97 97.9 Physical Exam Physical Exam General: Oriented X3, Cooperative HEENT: Atraumatic, PERRLA Lungs: Clear to auscultation Heart: RRR, no thrills, no gallops Breasts: Not examined Abdomen: Soft Rectal Exam: not examined PELVIC: Examination not indicated Extremities: No cyanosis Neuro: Normal speech, Cranial nerves 3-12 NL Psych/Mental Status: Mental status NL General: Oriented X3, Cooperative, moderate distress Lungs: Clear, Wheezing Abdomen: Soft Extremities: No cyanosis, Other (Severe pain reported in LLE around knee joint) Labs LABS Laboratory Tests Test 07/12/18 03:00 Prothrombin Time 40.0 SEC (11.7-14.0) Prothromb Time International Ratio 4.1 (0.8-1.1) Assessment and Plan Assessmemt and Plan Problems Medical Problems: (1) Chronic anticoagulation Status: Acute (2) Effusion, left knee Status: Acute (3) Left knee pain Status: Acute Comment Review of Relevant I have reviewed the following items tyrone (where applicable) has been applied. Labs Laboratory Tests Test 07/11/18 04:05 07/12/18 03:00 Prothrombin Time 33.3 SEC (11.7-14.0) 40.0 SEC (11.7-14.0) Prothromb Time International Ratio 3.3 (0.8-1.1) 4.1 (0.8-1.1) Laboratory Tests Test 07/12/18 03:00 Prothrombin Time 40.0 SEC (11.7-14.0) Prothromb Time International Ratio 4.1 (0.8-1.1) Medications Current Medications Fentanyl Citrate (Fentanyl 2ml Vial) 50 mcg 1X ONCE IM Last administered on at 17:04; Start 07/08/18 at 15:45; Stop 07/08/18 at 15:46; Status DC Acetaminophen (Tylenol) 650 mg PRN Q4HRS PRN PO PAIN Last administered on 07/08at 21:17; Start 07/08/18 at 17:30; Stop 07/09/18 at 11:11; Status DC Metoprolol Tartrate (Lopressor) 50 mg BID PO Last administered on 07/12/18at 08 :59; Start 07/08/18 at 21:00 Multivitamins (Thera M Plus) 1 tab DAILY PO Last administered on 07/12/18at 08: 58; Start 07/09/18 at 09:00 Atorvastatin Calcium (Lipitor) 5 mg QHS PO Last administered on 07/11/18at 20: 19; Start 07/08/18 at 21:00 Diazepam (Valium) 2.5 mg PRN TID PRN PO ANXIETY / AGITATION Last administered on 07/10/18at 16:45; Start 07/08/18 at 20:45; Stop 07/10/18 at 19:45; Status DC Doxycycline Hyclate (Vibra-Tab) 100 mg BID PO ; Start 07/08/18 at 21:00; Status UNV Prednisone (Prednisone) 20 mg DAILY PO ; Start 07/09/18 at 09:00; Status UNV Acetaminophen (Tylenol) 500 mg PRN Q6HRS PRN PO MILD PAIN / TEMP; Start at 20:45 Non-Formulary Medication (Benzonatate ) 100 mg TID PO ; Start 07/08/18 at 21:00 ; Status UNV Lidocaine (Lidoderm) 1 patch DAILY TD Last administered on 07/12/18at 10:03; Start 07/09/18 at 09:00 Pantoprazole Sodium (Protonix) 40 mg DAILYAC PO Last administered on at 06:47; Start 07/09/18 at 07:30 Warfarin Sodium (Coumadin) 5 mg DAILY16 PO Last administered on 07/10/18at 16: 44; Start 07/08/18 at 21:30; Stop 07/11/18 at 16:01; Status DC Warfarin Sodium (Coumadin) 4 mg DAILY16 PO Last administered on 07/10/18at 16: 44; Start 07/08/18 at 21:30; Stop 07/11/18 at 16:01; Status DC Warfarin Sodium (Coumadin Per Physician) 1 each PRN DAILY PRN MC SEE COMMENTS Last administered on 07/09/18at 13:01; Start 07/08/18 at 21:15; Stop 07/12/18 at 11:38; Status DC Fentanyl Citrate (Fentanyl 2ml Vial) 50 mcg PRN Q2HR PRN IV SEVERE PAIN Last administered on 07/12/18at 09:06; Start 07/08/18 at 21:30 Fentanyl Citrate (Fentanyl 2ml Vial) 25 mcg PRN Q2HR PRN IV MODERATE PAIN; Start 07/08/18 at 21:30 Methylprednisolone Acetate (DEPO-Medrol 80MG VIAL) 80 mg 1X ONCE IM ; Start at 12:30; Stop 07/10/18 at 12:31; Status DC Lidocaine HCl (Lidocaine 1% 20ml Vial) 20 ml 1X ONCE INJ ; Start 07/10/18 at 12:30; Stop 07/10/18 at 12:31; Status DC Ondansetron HCl (Zofran) 4 mg PRN Q6HRS PRN IV NAUSEA/VOMITING Last administered on 07/10/18at 14:45; Start 07/10/18 at 13:15 Diazepam (Valium) 5 mg PRN TID PRN PO ANXIETY / AGITATION Last administered on 07/11/18at 11:52; Start 07/10/18 at 19:45; Stop 07/11/18 at 19:44; Status DC Warfarin Sodium (Coumadin) 5 mg 1X ONCE PO Last administered on 07/11/18at 16: 15; Start 07/11/18 at 16:15; Stop 07/11/18 at 16:16; Status DC Diazepam (Valium) 2.5 mg PRN TID PRN PO ANXIETY; Start 07/12/18 at 04:15 Warfarin Sodium (Coumadin Per Pharmacy) 1 each PRN DAILY PRN MC SEE COMMENTS; Start 07/12/18 at 11:45 Active Scripts Active Lidocaine 1 Each Adh..patch 1 Each TP DAILY Apply one patch to left knee. Leave on 12 hours/12 hours off. Prednisone 20 Mg Tablet 20 Mg PO DAILY 3 Days [Pantoprazole] 40 MG Tablet.dr 40 Mg PO DAILYAC 30 Days Benzonatate 100 Mg Capsule 100 Mg PO TID Doxycycline Hyclate 100 Mg Tablet 100 Mg PO BID 2 Days Metoprolol Tartrate 50 Mg Tablet 50 Mg PO BID 30 Days Diazepam 5 Mg Tablet 0.5-1 Tab PO PRN TID PRN Reported Warfarin Sodium 10 Mg Tablet 9 Mg PO DAILYWSUP Acetaminophen 500 Mg Tablet 500 Mg PO PRN Q6HRS PRN One Daily (Multivitamin) 1 Each Tablet 1 Each PO DAILY Pravastatin Sodium 20 Mg Tablet 1 Tab PO DAILY Warfarin Sodium 5 Mg Tablet 1 Tab PO DAILY Vitals/I & O Vital Sign - Last 24 Hours 07/11/18 07/11/18 07/11/18 07/11/18 15:00 17:05 17:50 19:00 Temp 98.2 98.2 Pulse 73 73 Resp 18 18 B/P (MAP) 149/62 (91) 129/52 (77) Pulse Ox 93 93 93 O2 Delivery Room Air Room Air Room Air 07/11/18 07/11/18 07/11/18 07/11/18 20:19 20:20 20:20 23:00 Temp 97.6 97.6 Pulse 73 71 Resp 18 B/P (MAP) 129/52 119/47 (71) Pulse Ox 92 O2 Delivery Room Air Room Air Room Air 07/12/18 07/12/18 07/12/18 07/12/18 00:33 03:00 03:35 06:48 Temp 98.3 98.3 Pulse 63 Resp 18 B/P (MAP) 139/65 (89) Pulse Ox 92 O2 Delivery Room Air Room Air Room Air Room Air 07/12/18 07/12/18 07/12/18 07/12/18 07:00 08:00 08:59 09:06 Temp 97.9 97.9 Pulse 68 68 Resp 18 16 B/P (MAP) 175/72 (106) 175/72 Pulse Ox 97 O2 Delivery Room Air Room Air Room Air 07/12/18 09:36 Resp 16 O2 Delivery Room Air Intake and Output 07/11/18 07/11/18 07/12/18 15:01 23:01 07:01 Output Total 700 ml Balance -700 ml MEERA WHITEHEAD MD Jul 12, 2018 12:21
[2018-07-12] MEDS: traMADol 50 MG TABLET PO PRN ×2 (13:39→20:07)
[2018-07-12] MEDS: diazePAM 5 MG TABLET PO PRN ×2 (13:46→22:37)
[2018-07-12 15:00] VITALS: BP 131/77
[2018-07-12 19:25] VITALS: BP 143/56
[2018-07-12] MEDS: ATORVASTATIN CALCIUM 10 MG TABLET. PO SCH (20:06)
[2018-07-12 23:01] VITALS: BP 147/62
[2018-07-13 03:18] VITALS: BP 123/69
[2018-07-13] MEDS: PANTOPRAZOLE 40 MG TABLET.DR. PO SCH (05:05)
[2018-07-13] MEDS: traMADol 50 MG TABLET PO PRN ×3 (05:06→17:35)
[2018-07-13 07:00] VITALS: BP 121/61
[2018-07-13] MEDS: METOPROLOL TART IMMED RELEASE 50 MG TABLET. PO SCH ×2 (09:14→21:28)
[2018-07-13] MEDS: LIDOCAINE (700MG/PATCH) PATCH. TD SCH (09:15)
[2018-07-13] MEDS: MULTIVITAMIN with MINERAL TABLET. PO SCH (09:15)
[2018-07-13 11:00] VITALS: BP 118/63
--- NOTE | 2018-07-13 11:24 | DISCH ---
DISCHARGE DISCHARGE INFORMATION: FINAL DIAGNOSIS Problems Medical Problems: (1) Chronic anticoagulation Status: Acute (2) Effusion, left knee Status: Acute (3) Left knee pain Status: Acute CONDITION ON DISCHARGE: Stable CODE STATUS: Code Status: Full LONG TERM: SNF STAY <30 DAYS: Yes HOSPICE: HOSPICE: No HOSPICE EVAL & TREAT: No LTAC: ADMIT TO LTAC: No POST DISCHARGE ORDERS: ACTIVITY ORDERS: Activity as tolerated DIET AFTER DISCHARGE: Cardiac CHECKS AFTER DISCHARGE: CHECKS AFTER DISCHARGE: Check blood press - daily DISCHARGE MEDICATIONS: Home Meds Active Scripts Lidocaine (Lidocaine) 1 Each Adh..patch, 1 EACH TP DAILY, #30 PATCH Apply one patch to left knee. Leave on 12 hours/12 hours off. Prov:BRAEDEN WASSERMAN NP 07/08/18 Prednisone (PREDNISONE) 20 Mg Tablet, 20 MG PO DAILY for 3 Days, #3 TAB Prov:TANYA DE LA TORRE MD 01/06/18 [Pantoprazole] [address] [place] Conflict Check, 40 MG PO DAILYAC for 30 Days Prov:TANYA DE LA TORRE MD 01/06/18 Benzonatate (BENZONATATE) 100 Mg Capsule, 100 MG PO TID, #20 CAP Prov:TANYA DE LA TORRE MD 01/06/18 Doxycycline Hyclate (DOXYCYCLINE HYCLATE) 100 Mg Tablet, 100 MG PO BID for 2 Days, #4 TAB Prov:TANYA DE LA TORRE MD 01/06/18 Metoprolol Tartrate (METOPROLOL TARTRATE) 50 Mg Tablet, 50 MG PO BID for 30 Days , #60 TAB Prov:TANYA DE LA TORRE MD 11/26/17 Diazepam (DIAZEPAM) 5 Mg Tablet, 0.5-1 TAB PO PRN TID PRN for ANXIETY / AGITATION, #30 TAB Prov:VIVIAN LEMUS MD 09/10/16 Reported Medications Warfarin Sodium (WARFARIN SODIUM) 10 Mg Tablet, 9 MG PO DAILYWSUP for prevent clots, TAB 07/08/18 Acetaminophen (ACETAMINOPHEN) 500 Mg Tablet, 500 MG PO PRN Q6HRS PRN for PAIN, # 2 TAB 11/24/17 Multivitamin (ONE DAILY) 1 Each Tablet, 1 EACH PO DAILY 06/28/16 Pravastatin Sodium (PRAVASTATIN SODIUM) 20 Mg Tablet, 1 TAB PO DAILY, #30 TAB 5 Refills 06/28/16 Discontinued Reported Medications Warfarin Sodium (WARFARIN SODIUM) 5 Mg Tablet, 1 TAB PO DAILY, #90 TAB 1 Refill 06/28/16 JOSHUA LOGAN III DO Jul 13, 2018 11:24
--- NOTE | 2018-07-13 11:46 | PDOC ---
PROGRESS NOTES Chief Complaint Chief Complaint Left knee Pain with swelling, PERSISTENT - Unable to walk Continues to have severe left leg pain and swelling, pain worse with any movement. History of Present Illness History of Present Illness Pt seen and examined, spoke with nursing staff. Pt seen while in bed. Pt is in moderate distress. Vitals Vitals Vital Signs Date Time Temp Pulse Resp B/P (MAP) Pulse Ox O2 Delivery O2 Flow Rate FiO2 07/13/18 11:31 16 Room Air 07/13/18 09:14 65 121/61 07/13/18 07:00 98.5 96 98.5 Physical Exam Physical Exam General: Oriented X3, Cooperative HEENT: Atraumatic, PERRLA Lungs: Clear to auscultation Heart: RRR, no thrills, no gallops Breasts: Not examined Abdomen: Soft Rectal Exam: not examined PELVIC: Examination not indicated Extremities: No cyanosis Neuro: Normal speech, Cranial nerves 3-12 NL Psych/Mental Status: Mental status NL General: Oriented X3, Cooperative, moderate distress Heart: Regular rate, Normal S1 Lungs: Clear, Wheezing Abdomen: Normal bowel sounds, Soft Extremities: No cyanosis, Other (Severe pain reported in LLE around knee joint) Skin: No rashes, No significant lesion Labs LABS Laboratory Tests Test 07/13/18 05:03 Prothrombin Time 34.0 SEC (11.7-14.0) Prothromb Time International Ratio 3.4 (0.8-1.1) Review of Systems Review of Systems endorses pain and tenderness of left knee denies shortness of breath Assessment and Plan Assessmemt and Plan Left knee Pain with swelling, PERSISTENT - Unable to walk Continues to have severe left leg pain and swelling, pain worse with any movement. Plan Discharge disposition: Needs to go to custodial today/tomorrow MRI- non-contributory She denies wanting pain control due to allergies Labs Home meds Comment Review of Relevant I have reviewed the following items tyrone (where applicable) has been applied. Labs Laboratory Tests Test 07/12/18 03:00 07/13/18 05:03 Prothrombin Time 40.0 SEC (11.7-14.0) 34.0 SEC (11.7-14.0) Prothromb Time International Ratio 4.1 (0.8-1.1) 3.4 (0.8-1.1) Laboratory Tests Test 07/13/18 05:03 Prothrombin Time 34.0 SEC (11.7-14.0) Prothromb Time International Ratio 3.4 (0.8-1.1) Medications Current Medications Fentanyl Citrate (Fentanyl 2ml Vial) 50 mcg 1X ONCE IM Last administered on at 17:04; Start 07/08/18 at 15:45; Stop 07/08/18 at 15:46; Status DC Acetaminophen (Tylenol) 650 mg PRN Q4HRS PRN PO PAIN Last administered on 07/08at 21:17; Start 07/08/18 at 17:30; Stop 07/09/18 at 11:11; Status DC Metoprolol Tartrate (Lopressor) 50 mg BID PO Last administered on 07/13/18at 09 :14; Start 07/08/18 at 21:00 Multivitamins (Thera M Plus) 1 tab DAILY PO Last administered on 07/13/18at 09: 15; Start 07/09/18 at 09:00 Atorvastatin Calcium (Lipitor) 5 mg QHS PO Last administered on 07/12/18at 20: 06; Start 07/08/18 at 21:00 Diazepam (Valium) 2.5 mg PRN TID PRN PO ANXIETY / AGITATION Last administered on 07/10/18at 16:45; Start 07/08/18 at 20:45; Stop 07/10/18 at 19:45; Status DC Doxycycline Hyclate (Vibra-Tab) 100 mg BID PO ; Start 07/08/18 at 21:00; Status UNV Prednisone (Prednisone) 20 mg DAILY PO ; Start 07/09/18 at 09:00; Status UNV Acetaminophen (Tylenol) 500 mg PRN Q6HRS PRN PO MILD PAIN / TEMP; Start at 20:45 Non-Formulary Medication (Benzonatate ) 100 mg TID PO ; Start 07/08/18 at 21:00 ; Status UNV Lidocaine (Lidoderm) 1 patch DAILY TD Last administered on 07/13/18at 09:15; Start 07/09/18 at 09:00 Pantoprazole Sodium (Protonix) 40 mg DAILYAC PO Last administered on at 05:05; Start 07/09/18 at 07:30 Warfarin Sodium (Coumadin) 5 mg DAILY16 PO Last administered on 07/10/18at 16: 44; Start 07/08/18 at 21:30; Stop 07/11/18 at 16:01; Status DC Warfarin Sodium (Coumadin) 4 mg DAILY16 PO Last administered on 07/10/18at 16: 44; Start 07/08/18 at 21:30; Stop 07/11/18 at 16:01; Status DC Warfarin Sodium (Coumadin Per Physician) 1 each PRN DAILY PRN MC SEE COMMENTS Last administered on 07/09/18at 13:01; Start 07/08/18 at 21:15; Stop 07/12/18 at 11:38; Status DC Fentanyl Citrate (Fentanyl 2ml Vial) 50 mcg PRN Q2HR PRN IV SEVERE PAIN Last administered on 07/12/18at 09:06; Start 07/08/18 at 21:30 Fentanyl Citrate (Fentanyl 2ml Vial) 25 mcg PRN Q2HR PRN IV MODERATE PAIN; Start 07/08/18 at 21:30 Methylprednisolone Acetate (DEPO-Medrol 80MG VIAL) 80 mg 1X ONCE IM ; Start at 12:30; Stop 07/10/18 at 12:31; Status DC Lidocaine HCl (Lidocaine 1% 20ml Vial) 20 ml 1X ONCE INJ ; Start 07/10/18 at 12:30; Stop 07/10/18 at 12:31; Status DC Ondansetron HCl (Zofran) 4 mg PRN Q6HRS PRN IV NAUSEA/VOMITING Last administered on 07/10/18at 14:45; Start 07/10/18 at 13:15 Diazepam (Valium) 5 mg PRN TID PRN PO ANXIETY / AGITATION Last administered on 07/11/18at 11:52; Start 07/10/18 at 19:45; Stop 07/11/18 at 19:44; Status DC Warfarin Sodium (Coumadin) 5 mg 1X ONCE PO Last administered on 07/11/18at 16: 15; Start 07/11/18 at 16:15; Stop 07/11/18 at 16:16; Status DC Diazepam (Valium) 2.5 mg PRN TID PRN PO ANXIETY Last administered on at 22:37; Start 07/12/18 at 04:15 Warfarin Sodium (Coumadin Per Pharmacy) 1 each PRN DAILY PRN MC SEE COMMENTS Last administered on 07/12/18at 12:47; Start 07/12/18 at 11:45 Tramadol HCl (Ultram) 50 mg PRN Q6HRS PRN PO MILD TO MODERATE PAIN Last administered on 07/13/18at 11:31; Start 07/12/18 at 12:15 Warfarin Sodium (Coumadin - No Dose Today) 1 each 1X WARF ONCE MC ; Start at 16:00; Stop 07/12/18 at 16:01; Status DC Active Scripts Active Lidocaine 1 Each Adh..patch 1 Each TP DAILY Apply one patch to left knee. Leave on 12 hours/12 hours off. Prednisone 20 Mg Tablet 20 Mg PO DAILY 3 Days [Pantoprazole] 40 MG Tablet.dr 40 Mg PO DAILYAC 30 Days Benzonatate 100 Mg Capsule 100 Mg PO TID Doxycycline Hyclate 100 Mg Tablet 100 Mg PO BID 2 Days Metoprolol Tartrate 50 Mg Tablet 50 Mg PO BID 30 Days Diazepam 5 Mg Tablet 0.5-1 Tab PO PRN TID PRN Reported Warfarin Sodium 10 Mg Tablet 9 Mg PO DAILYWSUP Acetaminophen 500 Mg Tablet 500 Mg PO PRN Q6HRS PRN One Daily (Multivitamin) 1 Each Tablet 1 Each PO DAILY Pravastatin Sodium 20 Mg Tablet 1 Tab PO DAILY Vitals/I & O Vital Sign - Last 24 Hours 07/12/18 07/12/18 07/12/18 07/12/18 13:39 14:39 15:00 19:25 Temp 97.4 98.1 97.4 98.1 Pulse 65 67 Resp 16 16 18 18 B/P (MAP) 131/77 (95) 143/56 (85) Pulse Ox 94 93 O2 Delivery Room Air Room Air Room Air 07/12/18 07/12/18 07/12/18 07/12/18 20:07 20:07 20:37 23:01 Temp 97.7 97.7 Pulse 65 60 Resp 18 B/P (MAP) 131/77 147/62 (90) Pulse Ox 94 93 O2 Delivery Room Air Room Air Room Air 07/13/18 07/13/18 07/13/18 07/13/18 03:18 05:06 06:06 07:00 Temp 97.9 98.5 97.9 98.5 Pulse 100 65 Resp 18 18 B/P (MAP) 123/69 (87) 121/61 (81) Pulse Ox 95 95 95 96 O2 Delivery Room Air Room Air Room Air Room Air 07/13/18 07/13/18 07/13/18 08:00 09:14 11:31 Pulse 65 Resp 16 B/P (MAP) 121/61 O2 Delivery Room Air Room Air Intake and Output 07/12/18 07/12/18 07/13/18 15:01 23:01 07:01 Intake Total 645 ml 565 ml 240 ml Output Total 700 ml 450 ml Balance 645 ml -135 ml -210 ml JOSHUA LOGAN III DO Jul 13, 2018 11:46
[2018-07-13 15:00] VITALS: BP 151/87
[2018-07-13 19:00] VITALS: BP 125/41
[2018-07-13] MEDS: ATORVASTATIN CALCIUM 10 MG TABLET. PO SCH (21:28)
[2018-07-13 23:00] VITALS: BP 122/41
[2018-07-14 03:00] VITALS: BP 125/68
[2018-07-14] MEDS: PANTOPRAZOLE 40 MG TABLET.DR. PO SCH (06:17)
[2018-07-14] MEDS: traMADol 50 MG TABLET PO PRN ×3 (06:18→18:30)
[2018-07-14 07:00] VITALS: BP 165/71
[2018-07-14 08:04] LABS: BASO % 0 % (0-3); EOS # 0.3 x10^3/uL (0.0-0.7); EOS % 4 % (0-3); HEMATOCRIT 40.9 % (36.0-47.0); HEMOGLOBIN 14.1 g/dL (12.0-15.5); LYMPH # 1.6 x10^3/uL (1.0-4.8); LYMPH % 21 % (24-48); MEAN CORPUSCULAR HEMOGLOBIN 30 pg (25-35); MEAN CORPUSCULAR HGB CONC 35 g/dL (31-37); MEAN CORPUSCULAR VOLUME 86 fL (79-100); MONO # 0.6 x10^3/uL (0.0-1.1); MONO % 8 % (0-9); NEUT % 67 % (31-73); PLATELET COUNT 235 x10^3/uL (140-400); RED BLOOD COUNT 4.78 x10^6/uL (3.50-5.40); RED CELL DISTRIBUTION WIDTH 14.3 % (11.5-14.5); WHITE BLOOD COUNT 7.5 x10^3/uL (4.0-11.0)
[2018-07-14 08:17] LABS: PROTHROMBIN TIME PATIENT 22.5 SEC (11.7-14.0)
[2018-07-14] MEDS: LIDOCAINE (700MG/PATCH) PATCH. TD SCH (08:23)
[2018-07-14] MEDS: MULTIVITAMIN with MINERAL TABLET. PO SCH (08:23)
[2018-07-14] MEDS: METOPROLOL TART IMMED RELEASE 50 MG TABLET. PO SCH ×2 (08:24→20:19)
[2018-07-14 08:27] LABS: CALCIUM 8.7 mg/dL (8.5-10.1); CREATININE 0.8 mg/dL (0.6-1.0); GFR 70.1; POTASSIUM 4.8 mmol/L (3.5-5.1)
[2018-07-14 11:00] VITALS: BP 127/66
--- NOTE | 2018-07-14 12:23 | PDOC ---
PROGRESS NOTES Chief Complaint Chief Complaint Left knee Pain with swelling History of Present Illness History of Present Illness Pt seen and examined, spoke with nursing staff. Pt seen while in bed. Pt states that today is "a big improvement for me" as she is in much less pain d/t pain medications provided. She was seen up in her chair today. Prescriptions were left for Valium 10mg TID PRN. D/C with approval from [facility]. Vitals Vitals Vital Signs Date Time Temp Pulse Resp B/P (MAP) Pulse Ox O2 Delivery O2 Flow Rate FiO2 07/14/18 08:24 62 165/71 07/14/18 08:00 Room Air 07/14/18 07:00 97.7 18 92 97.7 Physical Exam Physical Exam General: Oriented X3, Cooperative HEENT: Atraumatic, PERRLA Lungs: Clear to auscultation Heart: RRR, no thrills, no gallops Breasts: Not examined Abdomen: Soft Rectal Exam: not examined PELVIC: Examination not indicated Extremities: No cyanosis Neuro: Normal speech, Cranial nerves 3-12 NL Psych/Mental Status: Mental status NL General: Oriented X3, Cooperative, moderate distress Heart: Regular rate, Normal S1 Lungs: Clear, Wheezing Abdomen: Normal bowel sounds, Soft Extremities: No cyanosis, Other (Severe pain reported in LLE around knee joint) Skin: No rashes, No significant lesion Labs LABS Laboratory Tests Test 07/14/18 07:20 White Blood Count 7.5 x10^3/uL (4.0-11.0) Red Blood Count 4.78 x10^6/uL (3.50-5.40) Hemoglobin 14.1 g/dL (12.0-15.5) Hematocrit 40.9 % (36.0-47.0) Mean Corpuscular Volume 86 fL (79-100) Mean Corpuscular Hemoglobin 30 pg (25-35) Mean Corpuscular Hemoglobin Concent 35 g/dL (31-37) Red Cell Distribution Width 14.3 % (11.5-14.5) Platelet Count 235 x10^3/uL (140-400) Neutrophils (%) (Auto) 67 % (31-73) Lymphocytes (%) (Auto) 21 % (24-48) Monocytes (%) (Auto) 8 % (0-9) Eosinophils (%) (Auto) 4 % (0-3) Basophils (%) (Auto) 0 % (0-3) Neutrophils # (Auto) 5.0 x10^3uL (1.8-7.7) Lymphocytes # (Auto) 1.6 x10^3/uL (1.0-4.8) Monocytes # (Auto) 0.6 x10^3/uL (0.0-1.1) Eosinophils # (Auto) 0.3 x10^3/uL (0.0-0.7) Basophils # (Auto) 0.0 x10^3/uL (0.0-0.2) Prothrombin Time 22.5 SEC (11.7-14.0) Prothromb Time International Ratio 2.0 (0.8-1.1) Sodium Level 141 mmol/L (136-145) Potassium Level 4.8 mmol/L (3.5-5.1) Chloride Level 102 mmol/L (98-107) Carbon Dioxide Level 31 mmol/L (21-32) Anion Gap 8 (6-14) Blood Urea Nitrogen 21 mg/dL (7-20) Creatinine 0.8 mg/dL (0.6-1.0) Estimated GFR (Cockcroft-Gault) 70.1 Glucose Level 101 mg/dL (70-99) Calcium Level 8.7 mg/dL (8.5-10.1) Review of Systems Review of Systems Denies CP Denies SOB Denies N/V Assessment and Plan Assessmemt and Plan Assessment Left knee Pain with swelling Plan: PTOT Continue pain medication Home meds Labs D/C [facility] to [facility] with approval from [facility] Comment Review of Relevant I have reviewed the following items tyrone (where applicable) has been applied. Labs Laboratory Tests Test 07/13/18 05:03 07/14/18 07:20 Prothrombin Time 34.0 SEC (11.7-14.0) 22.5 SEC (11.7-14.0) Prothromb Time International Ratio 3.4 (0.8-1.1) 2.0 (0.8-1.1) White Blood Count 7.5 x10^3/uL (4.0-11.0) Red Blood Count 4.78 x10^6/uL (3.50-5.40) Hemoglobin 14.1 g/dL (12.0-15.5) Hematocrit 40.9 % (36.0-47.0) Mean Corpuscular Volume 86 fL (79-100) Mean Corpuscular Hemoglobin 30 pg (25-35) Mean Corpuscular Hemoglobin Concent 35 g/dL (31-37) Red Cell Distribution Width 14.3 % (11.5-14.5) Platelet Count 235 x10^3/uL (140-400) Neutrophils (%) (Auto) 67 % (31-73) Lymphocytes (%) (Auto) 21 % (24-48) Monocytes (%) (Auto) 8 % (0-9) Eosinophils (%) (Auto) 4 % (0-3) Basophils (%) (Auto) 0 % (0-3) Neutrophils # (Auto) 5.0 x10^3uL (1.8-7.7) Lymphocytes # (Auto) 1.6 x10^3/uL (1.0-4.8) Monocytes # (Auto) 0.6 x10^3/uL (0.0-1.1) Eosinophils # (Auto) 0.3 x10^3/uL (0.0-0.7) Basophils # (Auto) 0.0 x10^3/uL (0.0-0.2) Sodium Level 141 mmol/L (136-145) Potassium Level 4.8 mmol/L (3.5-5.1) Chloride Level 102 mmol/L (98-107) Carbon Dioxide Level 31 mmol/L (21-32) Anion Gap 8 (6-14) Blood Urea Nitrogen 21 mg/dL (7-20) Creatinine 0.8 mg/dL (0.6-1.0) Estimated GFR (Cockcroft-Gault) 70.1 Glucose Level 101 mg/dL (70-99) Calcium Level 8.7 mg/dL (8.5-10.1) Laboratory Tests Test 07/14/18 07:20 White Blood Count 7.5 x10^3/uL (4.0-11.0) Red Blood Count 4.78 x10^6/uL (3.50-5.40) Hemoglobin 14.1 g/dL (12.0-15.5) Hematocrit 40.9 % (36.0-47.0) Mean Corpuscular Volume 86 fL (79-100) Mean Corpuscular Hemoglobin 30 pg (25-35) Mean Corpuscular Hemoglobin Concent 35 g/dL (31-37) Red Cell Distribution Width 14.3 % (11.5-14.5) Platelet Count 235 x10^3/uL (140-400) Neutrophils (%) (Auto) 67 % (31-73) Lymphocytes (%) (Auto) 21 % (24-48) Monocytes (%) (Auto) 8 % (0-9) Eosinophils (%) (Auto) 4 % (0-3) Basophils (%) (Auto) 0 % (0-3) Neutrophils # (Auto) 5.0 x10^3uL (1.8-7.7) Lymphocytes # (Auto) 1.6 x10^3/uL (1.0-4.8) Monocytes # (Auto) 0.6 x10^3/uL (0.0-1.1) Eosinophils # (Auto) 0.3 x10^3/uL (0.0-0.7) Basophils # (Auto) 0.0 x10^3/uL (0.0-0.2) Prothrombin Time 22.5 SEC (11.7-14.0) Prothromb Time International Ratio 2.0 (0.8-1.1) Sodium Level 141 mmol/L (136-145) Potassium Level 4.8 mmol/L (3.5-5.1) Chloride Level 102 mmol/L (98-107) Carbon Dioxide Level 31 mmol/L (21-32) Anion Gap 8 (6-14) Blood Urea Nitrogen 21 mg/dL (7-20) Creatinine 0.8 mg/dL (0.6-1.0) Estimated GFR (Cockcroft-Gault) 70.1 Glucose Level 101 mg/dL (70-99) Calcium Level 8.7 mg/dL (8.5-10.1) Medications Current Medications Fentanyl Citrate (Fentanyl 2ml Vial) 50 mcg 1X ONCE IM Last administered on at 17:04; Start 07/08/18 at 15:45; Stop 07/08/18 at 15:46; Status DC Acetaminophen (Tylenol) 650 mg PRN Q4HRS PRN PO PAIN Last administered on 07/08at 21:17; Start 07/08/18 at 17:30; Stop 07/09/18 at 11:11; Status DC Metoprolol Tartrate (Lopressor) 50 mg BID PO Last administered on 07/14/18at 08 :24; Start 07/08/18 at 21:00 Multivitamins (Thera M Plus) 1 tab DAILY PO Last administered on 07/14/18at 08: 23; Start 07/09/18 at 09:00 Atorvastatin Calcium (Lipitor) 5 mg QHS PO Last administered on 07/13/18at 21: 28; Start 07/08/18 at 21:00 Diazepam (Valium) 2.5 mg PRN TID PRN PO ANXIETY / AGITATION Last administered on 07/10/18at 16:45; Start 07/08/18 at 20:45; Stop 07/10/18 at 19:45; Status DC Doxycycline Hyclate (Vibra-Tab) 100 mg BID PO ; Start 07/08/18 at 21:00; Status UNV Prednisone (Prednisone) 20 mg DAILY PO ; Start 07/09/18 at 09:00; Status UNV Acetaminophen (Tylenol) 500 mg PRN Q6HRS PRN PO MILD PAIN / TEMP; Start at 20:45 Non-Formulary Medication (Benzonatate ) 100 mg TID PO ; Start 07/08/18 at 21:00 ; Status UNV Lidocaine (Lidoderm) 1 patch DAILY TD Last administered on 07/14/18at 08:23; Start 07/09/18 at 09:00 Pantoprazole Sodium (Protonix) 40 mg DAILYAC PO Last administered on at 06:17; Start 07/09/18 at 07:30 Warfarin Sodium (Coumadin) 5 mg DAILY16 PO Last administered on 07/10/18at 16: 44; Start 07/08/18 at 21:30; Stop 07/11/18 at 16:01; Status DC Warfarin Sodium (Coumadin) 4 mg DAILY16 PO Last administered on 07/10/18at 16: 44; Start 07/08/18 at 21:30; Stop 07/11/18 at 16:01; Status DC Warfarin Sodium (Coumadin Per Physician) 1 each PRN DAILY PRN MC SEE COMMENTS Last administered on 07/09/18at 13:01; Start 07/08/18 at 21:15; Stop 07/12/18 at 11:38; Status DC Fentanyl Citrate (Fentanyl 2ml Vial) 50 mcg PRN Q2HR PRN IV SEVERE PAIN Last administered on 07/12/18at 09:06; Start 07/08/18 at 21:30 Fentanyl Citrate (Fentanyl 2ml Vial) 25 mcg PRN Q2HR PRN IV MODERATE PAIN; Start 07/08/18 at 21:30 Methylprednisolone Acetate (DEPO-Medrol 80MG VIAL) 80 mg 1X ONCE IM ; Start at 12:30; Stop 07/10/18 at 12:31; Status DC Lidocaine HCl (Lidocaine 1% 20ml Vial) 20 ml 1X ONCE INJ ; Start 07/10/18 at 12:30; Stop 07/10/18 at 12:31; Status DC Ondansetron HCl (Zofran) 4 mg PRN Q6HRS PRN IV NAUSEA/VOMITING Last administered on 07/10/18at 14:45; Start 07/10/18 at 13:15 Diazepam (Valium) 5 mg PRN TID PRN PO ANXIETY / AGITATION Last administered on 07/11/18at 11:52; Start 07/10/18 at 19:45; Stop 07/11/18 at 19:44; Status DC Warfarin Sodium (Coumadin) 5 mg 1X ONCE PO Last administered on 07/11/18at 16: 15; Start 07/11/18 at 16:15; Stop 07/11/18 at 16:16; Status DC Diazepam (Valium) 2.5 mg PRN TID PRN PO ANXIETY Last administered on at 22:37; Start 07/12/18 at 04:15 Warfarin Sodium (Coumadin Per Pharmacy) 1 each PRN DAILY PRN MC SEE COMMENTS Last administered on 07/13/18at 15:22; Start 07/12/18 at 11:45 Tramadol HCl (Ultram) 50 mg PRN Q6HRS PRN PO MODERATE PAIN Last administered on 07/14/18at 06:18; Start 07/12/18 at 12:15 Warfarin Sodium (Coumadin - No Dose Today) 1 each 1X WARF ONCE MC ; Start at 16:00; Stop 07/12/18 at 16:01; Status DC Warfarin Sodium (Coumadin - No Dose Today) 1 each 1X WARF ONCE MC ; Start at 16:00; Stop 07/13/18 at 16:01; Status DC Methylprednisolone Acetate (DEPO-Medrol 80MG VIAL) 80 mg STK-MED ONCE .ROUTE ; Start 07/10/18 at 12:30; Stop 07/14/18 at 09:23; Status DC Active Scripts Active Lidocaine 1 Each Adh..patch 1 Each TP DAILY Apply one patch to left knee. Leave on 12 hours/12 hours off. Prednisone 20 Mg Tablet 20 Mg PO DAILY 3 Days [Pantoprazole] 40 MG Tablet.dr 40 Mg PO DAILYAC 30 Days Benzonatate 100 Mg Capsule 100 Mg PO TID Doxycycline Hyclate 100 Mg Tablet 100 Mg PO BID 2 Days Metoprolol Tartrate 50 Mg Tablet 50 Mg PO BID 30 Days Diazepam 5 Mg Tablet 0.5-1 Tab PO PRN TID PRN Reported Warfarin Sodium 10 Mg Tablet 9 Mg PO DAILYWSUP Acetaminophen 500 Mg Tablet 500 Mg PO PRN Q6HRS PRN One Daily (Multivitamin) 1 Each Tablet 1 Each PO DAILY Pravastatin Sodium 20 Mg Tablet 1 Tab PO DAILY Vitals/I & O Vital Sign - Last 24 Hours 07/13/18 07/13/18 07/13/18 07/13/18 15:00 17:35 18:35 19:00 Temp 98.5 98.2 98.5 98.2 Pulse 76 58 Resp 20 16 16 18 B/P (MAP) 151/87 (108) 125/41 (69) Pulse Ox 96 100 O2 Delivery Room Air Room Air Room Air 07/13/18 07/13/18 07/13/18 07/14/18 20:45 21:28 23:00 03:00 Temp 97.6 97.8 97.6 97.8 Pulse 58 66 56 Resp 18 18 B/P (MAP) 125/41 122/41 (68) 125/68 (87) Pulse Ox 92 94 O2 Delivery Room Air Room Air Room Air 07/14/18 07/14/18 07/14/18 07/14/18 06:18 07:00 07:18 08:00 Temp 97.7 97.7 Pulse 62 Resp 18 B/P (MAP) 165/71 (102) Pulse Ox 94 92 O2 Delivery Room Air Room Air Room Air Room Air 07/14/18 08:24 Pulse 62 B/P (MAP) 165/71 Intake and Output 07/13/18 07/13/18 07/14/18 15:01 23:01 07:01 Intake Total 120 ml Output Total 1150 ml 700 ml 400 ml Balance -1150 ml -580 ml -400 ml JOSHUA LOGAN III DO Jul 14, 2018 12:23
[2018-07-14 15:00] VITALS: BP 128/65
[2018-07-14] MEDS ORDERED: WARFARIN 5 MG TABLET. PO ONE (16:00)
[2018-07-14 19:20] VITALS: BP 122/59
[2018-07-14] MEDS: ATORVASTATIN CALCIUM 10 MG TABLET. PO SCH (20:18)
[2018-07-14 23:26] VITALS: BP 112/47
[2018-07-15 02:56] VITALS: BP 135/68
[2018-07-15] MEDS: traMADol 50 MG TABLET PO PRN (05:25)
[2018-07-15] MEDS: PANTOPRAZOLE 40 MG TABLET.DR. PO SCH (05:25)
[2018-07-15 05:43] LABS: BASO % 0 % (0-3); EOS # 0.4 x10^3/uL (0.0-0.7); EOS % 5 % (0-3); HEMATOCRIT 39.8 % (36.0-47.0); HEMOGLOBIN 13.6 g/dL (12.0-15.5); LYMPH # 1.8 x10^3/uL (1.0-4.8); LYMPH % 21 % (24-48); MEAN CORPUSCULAR HEMOGLOBIN 29 pg (25-35); MEAN CORPUSCULAR HGB CONC 34 g/dL (31-37); MEAN CORPUSCULAR VOLUME 86 fL (79-100); MONO # 0.6 x10^3/uL (0.0-1.1); MONO % 7 % (0-9); NEUT # 5.5 x10^3uL (1.8-7.7); NEUT % 67 % (31-73); PLATELET COUNT 230 x10^3/uL (140-400); RED BLOOD COUNT 4.63 x10^6/uL (3.50-5.40); RED CELL DISTRIBUTION WIDTH 14.5 % (11.5-14.5); WHITE BLOOD COUNT 8.3 x10^3/uL (4.0-11.0)
[2018-07-15 05:59] LABS: CALCIUM 8.8 mg/dL (8.5-10.1); CREATININE 0.9 mg/dL (0.6-1.0); GFR 61.2; POTASSIUM 4.7 mmol/L (3.5-5.1)
[2018-07-15 07:00] VITALS: BP 166/72
[2018-07-15 08:40] VITALS: BP 166/72
[2018-07-15] MEDS: LIDOCAINE (700MG/PATCH) PATCH. TD SCH (08:40)
[2018-07-15] MEDS: MULTIVITAMIN with MINERAL TABLET. PO SCH (08:40)
[2018-07-15] MEDS: METOPROLOL TART IMMED RELEASE 50 MG TABLET. PO SCH (08:40)
[2018-07-15] MEDS: diazePAM 5 MG TABLET PO PRN (09:16)
[2018-07-15] MEDS ORDERED: WARFARIN 5 MG TABLET. PO ONE (16:00)
== END 2018-07-15 11:00 | DRG 558 ==
LOC: ER 12:37 → 4 NORTH 18:08 → OBSVTOIN 07-11 12:40
PROVIDERS: ADMIT Family Medicine; ATTEND Family Medicine
PROC: 3E0U33Z Introduction of Anti-inflammatory into Joints, Percutaneous Approach (ICD-10-PCS; principal; 2018-07-11)
PROC: 3E0U3BZ Introduction of Anesthetic Agent into Joints, Percutaneous Approach (ICD-10-PCS; 2018-07-11)
DX: M65.9 Synovitis and tenosynovitis, unspecified (principal); Z68.41 Body mass index [BMI] 40.0-44.9, adult; E66.01 Morbid (severe) obesity due to excess calories; K21.9 Gastro-esophageal reflux disease without esophagitis; E78.00 Pure hypercholesterolemia, unspecified; E78.5 Hyperlipidemia, unspecified; I10 Essential (primary) hypertension; F41.9 Anxiety disorder, unspecified; E03.9 Hypothyroidism, unspecified; M71.20 Synovial cyst of popliteal space [Baker], unspecified knee; M19.90 Unspecified osteoarthritis, unspecified site; I48.91 Unspecified atrial fibrillation; I25.2 Old myocardial infarction; Z90.49 Acquired absence of other specified parts of digestive tract; Z90.710 Acquired absence of both cervix and uterus; Z88.8 Allergy status to other drugs, medicaments and biological substances; Z88.6 Allergy status to analgesic agent; Z88.5 Allergy status to narcotic agent; Z88.0 Allergy status to penicillin; Z91.013 Allergy to seafood; Z86.73 Personal history of transient ischemic attack (TIA), and cerebral infarction without residual deficits; Z79.01 Long term (current) use of anticoagulants; Z82.49 Family history of ischemic heart disease and other diseases of the circulatory system
CPT/HCPCS: 36415; 72148; 73502; 73562; 73721; 80048; 80053; 85025; 85610; 93971; 96372; G0378; G0379; J1040; J2405; J3010; 97110; 97530; 97535; 99285-25

== ENCOUNTER → 2020-06-05 | Outpatient (CLI) | payer MEDICARE ==
[~2020-06-05] MED LIST changes: +LIDO700A21 TP; -MULT-223 PO; +MULT-629 PO; -PANT40TA5 PO; +PANT40TA77 PO; +WARF10TA40 PO
--- NOTE | 2020-06-05 14:34 | KCIC ---
KNEE RIGHT 3V DATE: 06/05/2020 12:00 AM INDICATION: Primary OA Rt knee, hurts to bear wt. / Spl. Instructions: / History: COMPARISON: None. FINDINGS: Bones: There is no evidence of acute fracture or dislocation. Joints: Mild tricompartmental degenerative changes. Prominent suprapatellar enthesophyte. There is no joint effusion. Miscellaneous: None. IMPRESSION: Mild tricompartmental degenerative changes. Electronically signed by: Rafael Tomlin MD (06/05/2020 2:31 PM) [id number]
== END ==
LOC: KCIC 12:54
PROVIDERS: ATTEND Family Medicine
DX: M17.11 Unilateral primary osteoarthritis, right knee (principal)
CPT/HCPCS: 73562

== ENCOUNTER → 2020-10-29 | Outpatient (CLI) | payer MEDICARE ==
--- NOTE | 2020-10-29 15:56 | KCIC ---
US BILATERAL LOWEREXTREMITY VENOUS DOPPLER History: Reason: LEG SWELLING / Spl. Instructions: / History: Comparison: None. Discussion: Multiple longitudinal and transverse high resolution real-time images of the [facility] lower extremity were obtained with color and Doppler sampling. The common femoral, superficial fem oral, popliteal and proximal calf veins are all patent and demonstrate normal flow and compressibilit y. Normal respiratory phasicity and augmentation is present. Impression: 1. No evidence of deep vein thrombosis. Electronically signed by: Miguel Angel Regan DO (10/29/2020 3:53 PM) [id number]
== END ==
LOC: KCIC US 14:48
PROVIDERS: ATTEND Family Medicine
DX: R22.43 Localized swelling, mass and lump, lower limb, bilateral (principal)
CPT/HCPCS: 93970

== ENCOUNTER → 2020-11-19 | Outpatient (CLI) | payer MEDICARE ==
--- NOTE | 2020-11-19 13:18 | KCIC ---
Examination: Left Lower Extremity Venous Doppler Ultrasound History: Left leg edema Comparison: 10/29/2020 Procedure: [place] scale, color flow 2D and spectal waveform analysis images are obtained with and witho ut compression in the area of the common femoral vein, superficial femoral vein - femoral vein juncti on, main femoral vein (superficial femoral vein) and popliteal vein. Veins of the proximal calf are a lso imaged. Findings: There is normal duplex flow, color flow and compressibility of all visualized vein segments. No evide nce of deep venous thrombus is present. Impression: No evidence of DVT in the bilateral lower extremity venous system. Electronically signed by: Richard Keys MD (11/19/2020 1:15 PM) [id number]
== END ==
LOC: KCIC US 09:49
PROVIDERS: ATTEND Family Medicine
DX: R60.0 Localized edema (principal)
CPT/HCPCS: 93971

== ENCOUNTER 2021-04-17 17:43 | Emergency (ER) | payer MEDICARE ==
[~2021-04-17] VITALS: Ht 157.5 cm; Wt 125.0 kg
[2021-04-17 18:27] LABS: BASO % 1 % (0-3); EOS # 0.1 x10^3/uL (0.0-0.7); EOS % 1 % (0-3); LYMPH # 1.3 x10^3/uL (1.0-4.8); LYMPH % 20 % (24-48); MEAN CORPUSCULAR HEMOGLOBIN 30 pg (25-35); MEAN CORPUSCULAR HGB CONC 34 g/dL (31-37); MEAN CORPUSCULAR VOLUME 88 fL (79-100); MONO # 0.5 x10^3/uL (0.0-1.1); MONO % 8 % (0-9); NEUT # 4.7 x10^3/uL (1.8-7.7); NEUT % 71 % (31-73); PLATELET COUNT 197 x10^3/uL (140-400); RED BLOOD COUNT 5.02 x10^6/uL (3.50-5.40); RED CELL DISTRIBUTION WIDTH 13.7 % (11.5-14.5); WHITE BLOOD COUNT 6.6 x10^3/uL (4.0-11.0)
[2021-04-17 18:31] LABS: CALCIUM 8.6 mg/dL (8.5-10.1); GFR 53.9; POTASSIUM 3.9 mmol/L (3.5-5.1)
--- NOTE | 2021-04-17 18:36 | RAD ---
XR CHEST 1V History: Reason: Chest pain / Spl. Instructions: / History: Comparison: January 01, 2018 Findings: No consolidation or pleural effusion. Normal heart size. No pneumothorax. Impression: 1. No acute cardiopulmonary process. Electronically signed by: Miguel Angel Regan DO (04/17/2021 6:34 PM) [facility] [place]
[2021-04-17 18:37] LABS: ALBUMIN 3.3 g/dL (3.4-5.0); ALBUMIN/GLOBULIN RATIO 1.1 (1.0-1.7); MAGNESIUM 1.9 mg/dL (1.8-2.4); PHOSPHORUS 2.9 mg/dL (2.6-4.7); TOTAL BILIRUBIN 1.2 mg/dL (0.2-1.0); TOTAL PROTEIN 6.3 g/dL (6.4-8.2)
[2021-04-17 18:45] LABS: CREATINE KINASE 32 U/L (26-192)
--- NOTE | 2021-04-17 19:00 | EKG ---
[facility] [address] [place] [id number] Test Date: 2021-04-17 Test Time: 17:54:17 Pat Name: NURYS LENNON Department: Room: Gender: F Range Mounter: : 1945 Requested By: ASHLYN YEH Order Number: [id number] Reading MD: Measurements Intervals [place] Rate: 69 P: -49 NE: 170 QRS: -18 QRSD: 84 T: 22 QT: 392 QTc: 422 Interpretive Statements SINUS RHYTHM LEFTWARD AXIS OTHERWISE NORMAL ECG RI6.02 No previous ECG available for comparison
[2021-04-17 20:30] VITALS: BP 139/63
[2021-04-17 20:43] LABS: BILIRUBIN,URINE NEGATIVE (NEG); CLARITY,URINE CLOUDY; COLOR,URINE YELLOW; NITRITE,URINE NEGATIVE (NEG); PROTEIN,URINE NEGATIVE (NEG-TRACE); UROBILINOGEN,URINE 0.2 mg/dL (0.2 mg/dL)
[2021-04-17 20:49] LABS: BACTERIA,URINE FEW /HPF (0-FEW); RBC,URINE 0 /HPF (0-2)
--- NOTE | 2021-04-17 21:06 | PHYS DOC ---
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 Patient denies nausea, vomiting, shortness of breath, radiation of chest pain, recent fever or chills. Patient denies other physical complaints or physical concerns. Review of Systems: Review of Systems: 14 body systems of review of systems have been reviewed. See HPI for pertinent positives and negative responses, otherwise all other systems are negative, nonpertinent or noncontributory. Constitutional: Negative except as outlined in HPI above. Skin: Negative except as outlined in HPI above. Eyes: Negative except as outlined in HPI above. HENT: Negative except as outlined in HPI above. Respiratory: Negative except as outlined in HPI above. Cardiovascular: Negative except as outlined in HPI above. GI: Negative except as outlined in HPI above. : Negative except as outlined in HPI above. Musculoskeletal: Negative except as outlined in HPI above. Integument: Negative except as outlined in HPI above. Neurologic: Negative except as outlined in HPI above. Endocrine: Negative except as outlined in HPI above. Lymphatic: Negative except as outlined in HPI above. Psychiatric: Negative except as outlined in HPI above. Heart Score: C/O Chest Pain: No Risk Factors: Risk Factors: DM, Current or recent (<one month) smoker, HTN, HLP, family history of CAD, obesity. Risk Scores: Score 0 - 3: 2.5% MACE over next 6 weeks - Discharge Home Score 4 - 6: 20.3% MACE over next 6 weeks - Admit for Clinical Observation Score 7 - 10: 72.7% MACE over next 6 weeks - Early Invasive Strategies Allergies: Allergies: Allergies Coded Allergies Type Severity Reaction Last Updated Verified Penicillins Allergy Intermediate 09/08/16 Yes alprazolam Allergy Intermediate 09/09/16 Yes codeine Allergy Intermediate 07/02/16 Yes hydrocodone Allergy Intermediate 07/02/16 Yes meperidine Allergy Intermediate 07/02/16 Yes morphine Allergy Intermediate 07/02/16 Yes shellfish derived Allergy Intermediate 07/02/16 Yes aspirin Adverse Reaction Intermediate 07/02/16 Yes Physical Exam: PE: Constitutional: Well developed, well nourished, no acute distress, non-toxic appearance. 75-year-old female in no apparent distress. HENT: Normocephalic, atraumatic. Eyes: Conjunctiva normal, no discharge. Neck: Normal range of motion, no stridor. Cardiovascular: No cyanosis appreciated, distal cap refill less than 2 seconds. Heart sounds S1-S2 to auscultation, regular rate and rhythm. Lungs & Thorax: Patient is in no respiratory distress, no audible adventitious lung sounds appreciated. Lung sounds clear to auscultate all lung wylie. Abdomen: Nontender, no abnormalities noted. Skin: Warm, dry, no erythema, no rash. Back: No tenderness, no deformities. Extremities: No tenderness, no cyanosis, no clubbing, ROM intact, no edema. Neurologic: Alert and oriented X 3, normal motor function, normal sensory function, no focal deficits noted. Psychologic: Affect normal, judgement normal, mood normal. Current Patient Data: Labs: Laboratory Tests Test 04/17/21 18:15 04/17/21 18:18 04/17/21 20:23 White Blood Count 6.6 x10^3/uL (4.0-11.0) Red Blood Count 5.02 x10^6/uL (3.50-5.40) Hemoglobin 15.0 g/dL (12.0-15.5) Hematocrit 44.0 % (36.0-47.0) Mean Corpuscular Volume 88 fL (79-100) Mean Corpuscular Hemoglobin 30 pg (25-35) Mean Corpuscular Hemoglobin Concent 34 g/dL (31-37) Red Cell Distribution Width 13.7 % (11.5-14.5) Platelet Count 197 x10^3/uL (140-400) Neutrophils (%) (Auto) 71 % (31-73) Lymphocytes (%) (Auto) 20 % (24-48) L Monocytes (%) (Auto) 8 % (0-9) Eosinophils (%) (Auto) 1 % (0-3) Basophils (%) (Auto) 1 % (0-3) Neutrophils # (Auto) 4.7 x10^3/uL (1.8-7.7) Lymphocytes # (Auto) 1.3 x10^3/uL (1.0-4.8) Monocytes # (Auto) 0.5 x10^3/uL (0.0-1.1) Eosinophils # (Auto) 0.1 x10^3/uL (0.0-0.7) Basophils # (Auto) 0.0 x10^3/uL (0.0-0.2) D-Dimer (Priscilla) 0.59 ug/mlFEU (0.00-0.50) H Sodium Level 139 mmol/L (136-145) Potassium Level 3.9 mmol/L (3.5-5.1) Chloride Level 105 mmol/L (98-107) Carbon Dioxide Level 28 mmol/L (21-32) Anion Gap 6 (6-14) Blood Urea Nitrogen 17 mg/dL (7-20) Creatinine 1.0 mg/dL (0.6-1.0) Estimated GFR (Cockcroft-Gault) 53.9 BUN/Creatinine Ratio 17 (6-20) Glucose Level 132 mg/dL (70-99) H Calcium Level 8.6 mg/dL (8.5-10.1) Phosphorus Level 2.9 mg/dL (2.6-4.7) Magnesium Level 1.9 mg/dL (1.8-2.4) Total Bilirubin 1.2 mg/dL (0.2-1.0) H Aspartate Amino Transferase (AST) 17 U/L (15-37) Alanine Aminotransferase (ALT) 31 U/L (14-59) Alkaline Phosphatase 69 U/L (46-116) Creatine Kinase 32 U/L (26-192) Creatine Kinase MB (Mass) 0.6 ng/mL (0.0-3.6) Creatine Kinase MB Relative Index % (0-4) Troponin I Quantitative < 0.017 ng/mL (0.000-0.055) ZH-Wlw-N-Type Natriuretic Peptide 227 pg/mL (0-449) Total Protein 6.3 g/dL (6.4-8.2) L Albumin 3.3 g/dL (3.4-5.0) L Albumin/Globulin Ratio 1.1 (1.0-1.7) SARS-CoV-2 Antigen (Rapid) Negative (NEGATIVE) Urine Collection Type Void Urine Color Yellow Urine Clarity Cloudy Urine pH 6.0 (<5.0-8.0) Urine Specific Brilliant <=1.005 (1.000-1.030) Urine Protein Negative mg/dL (NEG-TRACE) Urine Glucose (UA) Negative mg/dL (NEG) Urine Ketones (Stick) Negative mg/dL (NEG) Urine Blood Negative (NEG) Urine Nitrite Negative (NEG) Urine Bilirubin Negative (NEG) Urine Urobilinogen Dipstick 0.2 mg/dL (0.2 mg/dL) Urine Leukocyte Esterase Negative (NEG) Urine RBC 0 /HPF (0-2) Urine WBC 1-4 /HPF (0-4) Urine Squamous Epithelial Cells Few /LPF Urine Bacteria Few /HPF (0-FEW) Urine Mucus Slight /LPF Laboratory Tests 04/17/21 18:15 Laboratory Tests 04/17/21 18:15 Vital Signs: Vital Signs Date Time Temp Pulse Resp B/P (MAP) Pulse Ox O2 Delivery O2 Flow Rate FiO2 04/17/21 20:30 72 139/63 (88) 96 Room Air 04/17/21 18:02 97.9 18 97.9 EKG: EKG: EKG performed at 1754 by ED nursing staff shows a normal sinus rhythm without other ectopy, heart rate 69 bpm, NE interval 0.170, QTc interval 0.422, no acute STEMI, no ACS, no acute ischemia appreciated, EKG interpreted by ED attending physician Dr. Austin. Radiology/Procedures: Radiology/Procedures: PATIENT: NURYS LENNON ACCOUNT: [id number] : 1945 LOCATION: ER AGE: 75 SEX: F EXAM STATUS: PRE ER ORD. PHYSICIAN: ASHLYN YEH APRN REASON: Chest pain PROCEDURE: CHEST AP ONLY XR CHEST 1V History: Reason: Chest pain / Spl. Instructions: / History: Comparison: January 01, 2018 Findings: No consolidation or pleural effusion. Normal heart size. No pneumothorax. Impression: 1. No acute cardiopulmonary process. Electronically signed by: Miguel Angel Regan DO (04/17/2021 6:34 PM) [facility] Course & Med Decision Making: Course & Med Decision Making Pertinent Labs and Imaging studies reviewed. (See chart for details) 75-year-old female, vital signs reviewed, presents emergency department concerning chest pain at 1430 today. Physical examination unremarkable, related to patient's chief complaint will order cardiorespiratory work-up. Patient's chest x-ray unremarkable, EKG and cardiac enzymes nonconcerning, patient's urinalysis not concerning, upon reevaluation of the patient, the patient reports she has no longer having chest pain, patient states she thinks this may be an anxiety problem related to the stress of her life. Discussed with patient strict follow-up with primary care call tomorrow for appointment, strict return to ER precautions or concerns. Patient is amenable to ED discharge planning. Discussed with the patient all findings and diagnostic testing as well as the need to follow-up with their primary care provider for further evaluation and t reatment or return to the ED if any new or worsening symptoms. Strict return precautions were also discussed at length, the patient voiced understanding and agreement with the discharge planning. The patient was nontoxic in appearance, in no apparent distress, and hemodynamically stable at the time of disposition. Wagner Disclaimer: Wagner Disclaimer: This electronic medical record was generated, in whole or in part, using a voice recognition dictation system. Departure Departure Impression: Primary Impression: Chest pain of unknown etiology Disposition: HOME / SELF CARE / HOMELESS Condition: GOOD Referrals: VIVIAN LEMUS MD (PCP) Patient Instructions: Chest Pain (Nonspecific) Additional Instructions: You were seen in the emergency department for chest pain. A extensive cardiorespiratory work-up with completed today in the emergency department. Your EKG and chest x-ray did not show any signs of heart attack or infectious process of the lungs or heart, you do not have a pneumonia. Your lab work was reassuring that you are not having an infectious process, your blood sugars were within normal limits. I encourage you to follow-up with your primary care hugo pedersen to let them know you are having chest discomfort. Please return to the emergency department for worsening symptoms or other concerns. Thank you for visiting our Emergency Department. It was a pleasure taking care of you today in the emergency department and we appreciate you trusting us with your care. If any additional problems come up don't hesitate to return to visit us. Please follow up with your primary care provider so they can plan additional care if needed and know about the problem that you had. If symptoms worsen come back to the Emergency Department. Any concerning symptoms that start such as chest pain, shortness of air, weakness or numbness on one side of the body, running high fevers or any other concerning symptoms return to the ER. EMERGENCY DEPARTMENT GENERAL DISCHARGE INSTRUCTIONS Thank you for coming to [facility] Emergency Department (ED) to day and trusting us with you care. We trust that you had a positive experience in our Emergency Department. If you wish to speak to the department management, you may call the Director at [phone]. YOUR FOLLOW UP INSTRUCTIONS ARE FOLLOWS: 1. Do you have a private Doctor? If you do not have a private doctor, please ask for a resource list of physicians or clinics that may be able to assist you with follow up care. 2. The Emergency Physicain has interpreted your x-rays. The X-Ray specialist will also review them. If there is a change in the findings, you will be notified in 48 hours when at all possible. 3. A lab test or culture has been done, your results will be reviewed and you will be notified if you need a change in treatment. ADDITIONAL INSTRUCTIONS AND INFORMATION: 1. Your care today has been supervised by a physician who is specially trained in emergency care. Many problems require more than one evaluation for a complete diagnosis and treatment. We recommend that you schedule your follow up appointment as recommended to ensure complete treatment of you illness or injury. If you are unable to obtain follow up care and continue to have a problem, or if your condition worsens, we recommend that you return to the ED. 2. We are not able to safely determine your condition over the phone nor are we able to give sound medical advice over the phone. For these safety reasons, if you call for medical advice we will ask you to come to the ED for further evaluation. 3. If you have any questions regarding these discharge instructions please call the ED at [phone]. SAFETY INFORMATION: In the interest of safety, wellness, and injury prevention; we encourage you to wear your sealbelt, if you smoke; quite smoking, and we encourage family to use a protective helmet for bicycling and other sporting events that present an increased risk for head injury. IF YOUR SYMPTOMS WORSEN OR NEW SYMPTOMS DEVELOP, OR YOU HAVE CONCERNS ABOUT YOUR CONDITION; OR IF YOUR CONDITION WORSENS WHILE YOU ARE WAITING FOR YOUR FOLLOW UP APPOINT MENT; EITHER CONTACT YOUR PRIMARY CARE DOCTOR, THE PHYSICIAN WHOSE NAME AND NUMBER YOU WERE GIVEN, OR RETURN TO THE ED IMMEDIATELY. ASHLYN YEH APRN Apr 17, 2021 21:06
--- NOTE | 2021-04-18 15:52 | NUR ---
IP: Patient notified of negative COVID19 test results. Verbalized understanding.
== END 2021-04-17 21:24 | disposition home or self-care (01) ==
LOC: ER 17:43
DX: R07.9 Chest pain, unspecified (principal); I48.91 Unspecified atrial fibrillation; K21.9 Gastro-esophageal reflux disease without esophagitis; E78.00 Pure hypercholesterolemia, unspecified; I11.9 Hypertensive heart disease without heart failure; E03.9 Hypothyroidism, unspecified; I25.2 Old myocardial infarction; Z20.822 Contact with and (suspected) exposure to COVID-19; Z86.73 Personal history of transient ischemic attack (TIA), and cerebral infarction without residual deficits; Z88.0 Allergy status to penicillin; Z88.5 Allergy status to narcotic agent; Z88.8 Allergy status to other drugs, medicaments and biological substances; Z91.013 Allergy to seafood; Z88.6 Allergy status to analgesic agent
CPT/HCPCS: 36415; 71045; 80053; 81001; 82553; 83735; 83880; 84100; 84484; 85025; 85379; 87426; 93005; 99285; U0003; U0005